=== PATIENT | male | born 1985 | race Caucasian/White ===

== ENCOUNTER 2020-06-06 09:13 | Outpatient (REF) | payer OTHER, SELFPAY ==
--- NOTE | 2020-06-06 09:39 | ECG_ITS ---
Test Reason : UNSPEC CONVULSIONS Blood Pressure : / mmHG Vent. Rate : 113 BPM Atrial Rate : 113 BPM P-R Int : 124 ms QRS Dur : 080 ms QT Int : 314 ms P-R-T Axes : 051 059 061 degrees QTc Int : 430 ms Sinus tachycardia Otherwise normal ECG No previous ECGs available Referred By: Luc Shelby Electronically Signed By:COREY VALDES MD
[2020-06-06 09:50] LABS: MANUAL DIFF FLAG NO
[2020-06-06 09:57] LABS: Basophils Percent Auto 0.7 % (0-2); Eosinophils Percent Auto 0.2 % (0-4); Hematocrit 45.5 % (42-52); Hemoglobin 14.9 g/dl (14.0-18.0); Imm Gran Abs Auto 0.03 X10*3/uL (0.00-0.03); Imm Gran Pct Auto 0.7 % (0.0-0.4); Lymphocytes Absolute Auto 1.7 X10*3/uL (1.2-4.9); Lymphocytes Percent Auto 39.8 % (20-40); Mean Corpuscular HGB Conc 32.7 g/dl (31.0-36.0); Mean Corpuscular Hemoglobin 28.8 pg (27.0-33.0); Mean Platelet Volume 10.5 fL (9.4-12.4); Monocytes Absolute Auto 0.3 X10*3/uL (0.1-1.2); Monocytes Percent Auto 7.3 % (2-11); Neutrophils Absolute Auto 2.2 X10*3/uL (2.0-8.3); Neutrophils Percent Auto 51.3 % (45-73); Platelet Count 191 X10*3/uL (160-400); Red Blood Count 5.17 X10*6/uL (4.60-5.80); Red Cell Distribution Width 11.9 % (11.0-16.0); White Blood Count 4.3 X10*3/uL (4.8-10.8)
[2020-06-06 10:15] LABS: Alanine Aminotransferase 26 U/L (0-40); Albumin Level 4.5 g/dL (3.5-5.0); Alkaline Phosphatase 83 U/L (39-117); Anion Gap 14 (12-20); Aspartate Amino Transferase 17 U/L (5-37); Bilirubin Total 0.3 mg/dL (0.0-1.0); Blood Urea Nitrogen 9 mg/dL (9-16); Calcium 9.8 mg/dL (8.4-10.2); Carbon Dioxide 27 mmol/L (22-29); Chloride 103 mmol/L (96-108); Estimated Glomerular Filt Rate > 60; Glucose Random 109 mg/dL (60-115); Potassium 3.9 mmol/L (3.3-5.1); Sodium 140 mmol/L (135-145); Total Protein 7.2 g/dL (6.5-8.0)
[2020-06-06 10:31] LABS: Valproate 78.1 mcg/mL (50.0-100.0)
[2020-06-06 10:39] LABS: Free T4 (Free Thyroxine) 0.95 ng/dL (0.71-1.85)
[2020-06-06 11:00] LABS: Folate 17.7 ng/mL (> or = 4.0); Vitamin B12 639 pg/mL (200-900)
[2020-06-06 12:28] LABS: Glucose Urine UA NEG (NEG); Leukocyte Esterase Urine NEG (NEG); Nitrite Urine NEG (NEG); Urine Blood NEG (NEG); Urine Ketones NEG (NEG); Urine Protein NEG (NEG-TRACE)
[2020-06-06 12:34] LABS: RBC Urine 0 /HPF (0); Squamous Epithelial Cell Urine TRACE /LPF; WBC Urine 0 /HPF (0-4)
[2020-06-06 13:45] LABS: Appearance Urine CLEAR; Color Urine YELLOW
== END 2020-06-06 09:14 | disposition home or self-care (01) ==
LOC: HO.LAB 09:13
PROVIDERS: Nurse Practitioner Family; PCP Internal Medicine; Visit Provider Internal Medicine
DX: Z00.00 Encounter for general adult medical examination without abnormal findings (principal); R56.9 Unspecified convulsions; R00.0 Tachycardia, unspecified
CPT/HCPCS: 36415; 80053; 80164; 81001; 82607; 82746; 84439; 84443; 85025; 93005

== ENCOUNTER 2020-09-26 17:13 | Outpatient (REF) | payer OTHER, SELFPAY | END 2020-09-26 17:14 | disposition home or self-care (01) | LOC: HO.LNP 17:13 | PROVIDERS: Visit Provider Nurse Practitioner Family | DX: R32 Unspecified urinary incontinence (principal) | CPT/HCPCS: 87086 ==

== ENCOUNTER 2020-12-26 16:55 | Outpatient (REF) | payer OTHER, SELFPAY ==
[2020-12-26 18:16] LABS: Alanine Aminotransferase 25 U/L (0-40); Albumin Level 4.6 g/dL (3.5-5.0); Alkaline Phosphatase 107 U/L (39-117); Aspartate Amino Transferase 19 U/L (5-37); Bilirubin Direct 0.2 mg/dL (0.0-0.5); Bilirubin Total 0.3 mg/dL (0.0-1.0); Total Protein 7.5 g/dL (6.5-8.0)
[2020-12-26 18:21] LABS: Valproate 88.3 mcg/mL (50.0-100.0)
== END 2020-12-26 16:56 | disposition home or self-care (01) ==
LOC: HO.LAB 16:55
PROVIDERS: PCP Internal Medicine; Visit Provider General Practice
DX: F31.9 Bipolar disorder, unspecified (principal); Z79.899 Other long term (current) drug therapy
CPT/HCPCS: 36415; 80076; 80164

== ENCOUNTER 2021-09-22 09:58 | Outpatient (REF) | payer OTHER, SELFPAY ==
--- NOTE | ~2021-09-22 | XR_ITS ---
EXAMINATION: XR FOOT, RIGHT CLINICAL INFORMATION: Pain in right foot COMPARISON: None TECHNIQUE: AP, lateral, and oblique views of the right foot. FINDINGS: The bones and soft tissues are normal. No fracture. Alignment is anatomic. Joint spaces are maintained. There is small retrocalcaneal enthesophyte. XR/XR foot RT 2V IMPRESSION: Small retrocalcaneal enthesophyte. Otherwise unremarkable right foot exam.
[2021-09-22 10:11] LABS: MANUAL DIFF FLAG NO
[2021-09-22 10:38] LABS: Basophils Percent Auto 0.5 % (0-2); Eosinophils Percent Auto 0.3 % (0-4); Hematocrit 45.3 % (42.0-52.0); Hemoglobin 14.9 g/dl (14.0-18.0); Imm Gran Abs Auto 0.02 X10*3/uL (0.00-0.03); Imm Gran Pct Auto 0.5 % (0.0-0.4); Lymphocytes Absolute Auto 1.8 X10*3/uL (1.2-4.9); Lymphocytes Percent Auto 47.6 % (20-40); Mean Corpuscular HGB Conc 32.9 g/dl (31.0-36.0); Mean Corpuscular Hemoglobin 28.9 pg (27.0-33.0); Mean Corpuscular Volume 87.8 fL (80.0-98.0); Mean Platelet Volume 10.6 fL (9.4-12.4); Monocytes Absolute Auto 0.3 X10*3/uL (0.1-1.2); Monocytes Percent Auto 7.4 % (2-11); Neutrophils Absolute Auto 1.7 x10*3/uL (2.0-8.3); Neutrophils Percent Auto 43.7 % (45-73); Platelet Count 189 X10*3/uL (160-400); Red Blood Count 5.16 X10*6/uL (4.60-5.80); Red Cell Distribution Width 11.6 % (11.0-16.0); White Blood Count 3.8 X10*3/uL (4.8-10.8)
[2021-09-22 11:10] LABS: Alanine Aminotransferase 32 U/L (0-40); Albumin Level 4.6 g/dL (3.5-5.0); Alkaline Phosphatase 101 U/L (39-117); Anion Gap 14 (12-20); Aspartate Amino Transferase 19 U/L (5-37); Bilirubin Total 0.2 mg/dL (0.0-1.0); Blood Urea Nitrogen 12 mg/dL (9-16); Calcium 9.8 mg/dL (8.4-10.2); Carbon Dioxide 31 mmol/L (22-29); Chloride 100 mmol/L (96-108); Cholesterol 156 mg/dL; Estimated Glomerular Filt Rate > 60; Glucose Random 88 mg/dL (60-115); HDL Cholesterol 53 mg/dL; LDL Cholesterol Calculated 83 mg/dl; Potassium 4.3 mmol/L (3.3-5.1); Sodium 141 mmol/L (135-145); Total Protein 7.5 g/dL (6.5-8.0); Triglycerides 102 mg/dL; Valproate 77.6 mcg/mL (50.0-100.0)
[2021-09-22 11:21] LABS: Free T4 (Free Thyroxine) 0.94 ng/dL (0.71-1.85); Thyroid Stimulating Hormone 1.79 uIU/mL (0.32-4.0)
[2021-09-22 11:58] LABS: Folate 14.6 ng/mL (> or = 4.0); Vitamin B12 593 pg/mL (200-900)
== END 2021-09-22 09:59 | disposition home or self-care (01) ==
LOC: HO.LAB 09:58
PROVIDERS: PCP Internal Medicine; Visit Provider Internal Medicine
DX: M79.671 Pain in right foot (principal); E78.00 Pure hypercholesterolemia, unspecified; R56.9 Unspecified convulsions
CPT/HCPCS: 36415; 73620; 80053; 80061; 80164; 82607; 82746; 84439; 84443; 85025

== ENCOUNTER → 2021-12-15 09:35 | Outpatient (REF) | payer OTHER, SELFPAY ==
--- NOTE | 2021-12-15 09:38 | CA_ITS ---
Transthoracic Echocardiogram Patient (Last, First, Middle): Bro Peters, Gender: Male Date of : 1985 Age: 36 Procedure Date: 12/15/2021 Procedure Type: Transthoracic Echocardiogram Location: OP Height: 167.64 cm Weight: 84.37 kg BSA: 1.94 m2 Heart Rate: 103 bpm BP: 130 / 66 mmHg Fuel Technician: SHRUTHI Referring MD: Luc Shelby MD Fly Rail Operator: Noah Martinez MD Symptoms: R00.0 - Tachycardia, unspecified Study Quality: Fair/Technically difficult ECG Rhythm: Sinus tachycardia Conclusions: - 1. Normal LV systolic function 2. Normal cardiac valvular Doppler 3. No gross pericardial effusion Findings Left Ventricle Normal left ventricular size, thickness, and systolic function. The visually estimated ejection fraction is between 60-65%. Diastolic function is indeterminate on the basis of available data. Right Ventricle Normal right ventricular cavity size and systolic function. Atria The left atrium is normal in size. Interatrial shunt cannot be excluded. The right atrium was not well visualized. Aortic Valve Normal aortic valve structure and function. Mitral Valve Likely normal mitral valve structure and function. There is trace mitral valve regurgitation. There is no mitral valve stenosis. Pulmonic Valve The pulmonic valve was not well visualized. Tricuspid Valve Normal tricuspid valve structure. Tricuspid regurgitation envelope is inadequate for calculation of right ventricular systolic pressure. Normal right atrial pressure. Great Vessels All visible segments of the aorta are normal in size. The pulmonary artery was not well visualized. Venous The inferior vena cava is normal in size and collapses greater than 50% with inspiration. Pericardium/Pleural There is no evidence of pericardial effusion. Prior Study Comparison No prior study available for comparison. Measurements 2D Linear Measurements IVSd: 1.09 0.6-0.9/0.6-1.0 cm LVIDd: 5.02 3.9-5.3/4.2-5.9 cm LVIDd Index: 2.59 2.4-3.2/2.2-3.1 cm/m2 LVIDs: 3.45 2.0-3.6 cm LVPWd: 0.90 0.7-1.1 cm LA Diam: 3.40 2.7-3.8/3.0-4.0 cm LAIDs Index: 1.75 1.5-2.3 cm/m2 LV Mass: 227.30 67-162/88-224 g LV Mass Index: 117.16 43-95/49-115 g/m2 LVOT Diam: 2.80 3.0+(-)1.3 cm 2D Systolic Function EF Teich: 58.70 >55% Mitral Valve MV Pk E: 0.59 MV Decel Time: 120.00 E'Medial: 7.29 E/E' Med: 8.10 PHT: 35.00 MVA PHT: 6.29 Decel [place]: 4.95 Aortic Valve AoV Pk Emmanuel: 0.86 AoV Pk Grad: 3.00 FREDRICK: 5.60 LVOT LVOT Pk Emmanuel: 0.79 LVOT Mn Emmanuel: 0.58 LVOT VTI: 0.14 LVOT Pk Grad: 2.00 LVOT Mn Grad: 1.00 LVOT Diam: 2.80 LVOT Area: 6.16 Diastolic Function MV Pk E: 0.59 E'Medial: 7.29 E/E' Med: 8.10 Tricuspid Valve RA Press: 3.00 Great Vessels Aorta Sinus of Valsalva: 3.60 2.0-3.5 cm Ao Asc: 3.20 2.1-3.4 cm Pulmonary Valve PV Pk Emmanuel: 0.80 Peak PV Grad: 3.00 Updated in Other Vendor System with Status of Final Noah Martinez MD electronically signed on 12/16/2021 2:18:17 PM with status of Final
== END ==
LOC: HO.CARD 09:35
PROVIDERS: Visit Provider Internal Medicine
DX: R00.0 Tachycardia, unspecified (principal); R03.0 Elevated blood-pressure reading, without diagnosis of hypertension
CPT/HCPCS: 93306

== ENCOUNTER 2022-02-11 09:06 | Outpatient (REF) | payer OTHER, SELFPAY ==
[2022-02-16 11:09] LABS: Metanephrine, Free 71 pg/mL (<=57); Normetanephrines, Free 135 pg/mL (<=148); Total Metanephrine, Free 206 pg/mL (<=205)
== END 2022-02-11 09:07 | disposition home or self-care (01) ==
LOC: HO.LAB 09:06
PROVIDERS: PCP Internal Medicine; Referring Provider Internal Medicine; Visit Provider Internal Medicine Cardiovascular Disease
DX: R00.0 Tachycardia, unspecified (principal); R03.0 Elevated blood-pressure reading, without diagnosis of hypertension; I10 Essential (primary) hypertension; Z79.899 Other long term (current) drug therapy
CPT/HCPCS: 36415; 83835; 93005; 99202

== ENCOUNTER 2022-09-14 11:58 | Outpatient (AMB) | payer OTHER, SELFPAY ==
[2022-09-14 12:00] VITALS: BP 130/80; PULSE 104; O2SAT 97; BMI 28.9
--- NOTE | 2022-09-14 12:00 | MHC.PC.OV ---
Vital Signs 09/14/22 12:00 Height 5 ft 8 in Weight 190 lb BMI 28.9 BP 130/80 Blood Pressure Location Rt brachial Position Sitting Pulse 104 H Pulse Source Pulse Oximeter Pulse Oximetry (%) 97 Oxygen Delivery Method Room Air Intake Visit Reasons: swollen left knee Intake Note: pt is here for left knee swelling since last week Lpn Per Diem Required: No Accompanied by: Self / Same As Patient Allergies Naldecon Senior EX Allergy (Unknown, Verified 09/14/22 12:00) Unknown pineapple Allergy (Unknown, Verified 09/14/22 12:00) unknown pseudoephedrine [Sudafed] Allergy (Unknown, Verified 09/14/22 12:00) Unknown triprolidine [From Actifed] Allergy (Unknown, Verified 09/14/22 12:00) Unknown Tobacco use date assessed: 08/02/22 Dental Screening Dental Screen Date: 09/14/22 Did you have a dental visit in the last 12 months?: Yes Did you have a dental problem in the last 6 months where you did not have access to dental care?: No Was dental information given to patient?: Patient has dentist HPI HPI Comments History of Present Illness Details 37-year-old male past medical history significant for OCD, mental behavioral problem, paitient nonverbal and seizure disorder. Patient of last seen in July. 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 states Patient having pain in left knee. ? swollen. Left knee slightly swollen on examination. Patient has taken Tylenol as needed for pain with some relief. Denies any acute injury or recent fall. Patient fci working states patient has no issues standing up from chairs or running but at times will move a certiant way and his gait will be unsteady to knee pain. [facility] Medical History Mental and behavioral problem Obsessive compulsive disorder (or obsessive compulsive neurosis) Overweight (BMI 25.0-29.9) Seizure Urine incontinence Vitamin D deficiency Surgical History No pertinent past surgical history Social History Housing: Other (half-way) Alcohol intake: never Patient Tobacco Use Status: Never used Tobacco e-Cigarette/Vaping Use: Never Used Second Hand Smoke Exposure: No service: No Current occupational status: disabled Cognitive needs: Yes (mental and behavioral problem) Hearing needs: No Vision needs: No Questionnaire Thrive Questionnaire Date Thrive assessed: 08/02/22 DAYANARA-7 AMB Questionnaire DAYANARA-7 Date DAYANARA - 7 assessed: 08/02/22 Source: Developed by Drs. Brijesh Reyes, Ml Woodruff, Sampson Segal and colleagues, with an educational meri from [employer]. Review of Systems Const Denies chills, Denies fatigue, Denies fever(s) and Denies poor appetite Eyes Denies no additional complaints ENT Reports Normal hearing present Card Denies chest pain, Denies syncope, Denies rapid heart rate and Denies dyspnea Resp Denies cough and Denies dyspnea GI Denies change in stool character, Denies constipation, Denies diarrhea, Denies nausea and Denies vomiting Denies dysuria, Denies urinary frequency and Denies urinary urgency Neuro Reports Normal hearing present, Denies confusion and Denies syncope Psych Denies confusion Endo Denies fatigue Physical exam (Primary Care) Vital Signs: Last Vital Signs Pulse 104 H 09/14/22 12:00 BP 130/80 09/14/22 12:00 Pulse Ox 97 09/14/22 12:00 Oxygen Delivery Method Room Air 09/14/22 12:00 BMI result Body Mass Index 28.9 Tobacco/Smoking Status: Tobacco use Status Tobacco use date assessed 08/02/22 09/14/22 12:01 Patient Tobacco Use Status Never used Tobacco 09/14/22 12:01 e-Cigarette/Vaping Use Never Used 09/14/22 12:01 Thrive Assessment: Date of Thrive Assessment Date Thrive assessed 08/02/22 09/14/22 12:01 Const General: No confusion Orientation/consciousness: No confusion HENMT Head: Yes normocephalic and Yes atraumatic Eyes Conjunctivae: conjunctivae normal Chest Chest palpation & inspection: normal inspection of the chest Resp Effort & Inspection: normal respiratory effort Auscultation: clear to auscultation bilaterally, no crackles, no rhonchi and no wheezes Cardio Rate: regular rate Rhythm: regular rhythm Heart sounds: S1 normal heart sound present and S2 normal heart sound present GI Inspection: Yes normal to inspection Neuro General: No confusion Cranial nerves: Yes Normal hearing present Extrem General: No edema Right lower extremity: normal to inspection and full ROM Left lower extremity: knee Details: swelling (mild patella swelling ) and normal ROM; no tenderness, no ecchymosis, no crepitus and no unusual warmth Assessment and Plan Assessment & Plan (1) Left knee pain: Code(s): M25.562 - Pain in left knee Plan: Left knee xray ordered to rule out acute injury. Diclofenac cream prescribed prn left knee pain. Can continue to take tyleonol as need for pain and liquor department manager educated on RICE therapy. (2) Mental and behavioral problem: Code(s): F48.9 - Nonpsychotic mental disorder, unspecified; F69 - Unspecified disorder of adult personality and behavior (3) Obsessive compulsive disorder (or obsessive compulsive neurosis): Code(s): F42.9 - Obsessive-compulsive disorder, unspecified Qualifiers: Obsessive-compulsive disorder type: mixed obsessional thoughts and acts Qualified Code(s): F42.2 - Mixed obsessional thoughts and acts (4) Seizure: Code(s): R56.9 - Unspecified convulsions Plan: Continue on current medications. Plan Keep scheduled follow up with pcp or follow up sooner if needed. Orders: Orders XR knee LT 2V Today M25.562 - Pain in left knee Medications: New diclofenac sodium 1% (Arthritis Pain (diclofenac)) apply to single elbow, wrist or hand;knee for hand includes palm/fingers/back of hand 2 grams topical QID PRN 100 grams 0RF pain M25.562 - Pain in left knee Coding Level of Care Code Est Pt Level 4 (47780) Diagnoses Left knee pain M25.562 Mental and behavioral problem F48.9; F69 Obsessive compulsive disorder (or obsessive compulsive neurosis) F42.2 Obsessive-compulsive disorder type: mixed obsessional thoughts and acts Seizure R56.9
== END 2022-09-14 13:17 | disposition home or self-care (01) ==
PROVIDERS: PCP Internal Medicine; Visit Provider Nurse Practitioner Family
DX: R56.9 Unspecified convulsions (principal); M25.562 Pain in left knee; F48.9 Nonpsychotic mental disorder, unspecified; F69 Unspecified disorder of adult personality and behavior; F42.2 Mixed obsessional thoughts and acts
CPT/HCPCS: 99214

== ENCOUNTER 2022-09-14 12:22 | Outpatient (REF) | payer OTHER, SELFPAY ==
--- NOTE | ~2022-09-14 | XR_ITS ---
EXAMINATION: XR KNEE, LEFT CLINICAL INFORMATION: Reason for Exam M25.562 - Pain in left knee COMPARISON: None TECHNIQUE: 2 views of the knee FINDINGS: No acute fracture or dislocation. Joint spaces are maintained. No joint effusion. Soft tissues are unremarkable. XR/XR knee LT 2V IMPRESSION: * No acute osseous abnormality. * Joint spaces are maintained without significant degenerative change.
== END 2022-09-14 12:23 | disposition home or self-care (01) ==
LOC: HO.XRAY 12:22
PROVIDERS: PCP Internal Medicine; Visit Provider Nurse Practitioner Family
DX: M25.562 Pain in left knee (principal)
CPT/HCPCS: 73560

== ENCOUNTER 2022-12-20 12:37 | Outpatient (AMB) | payer OTHER, SELFPAY ==
[2022-12-20 12:40] VITALS: BP 132/78; PULSE 100; O2SAT 97; BMI 27.5
--- NOTE | 2022-12-20 12:40 | A.OFFPC_ITS ---
Vital Signs 12/20/22 12:40 Height 5 ft 8 in Weight 181 lb BMI 27.5 BP 132/78 Blood Pressure Location Lt brachial Position Sitting Pulse 100 Pulse Source Pulse Oximeter Pulse Oximetry (%) 97 Oxygen Delivery Method Room Air Intake Visit Reasons: Annual Exam Day Care Teacher Required: No Accompanied by: Self / Same As Patient Allergies Naldecon Senior EX Allergy (Unknown, Verified 12/20/22 12:44) Unknown pineapple Allergy (Unknown, Verified 12/20/22 12:44) unknown pseudoephedrine [Sudafed] Allergy (Unknown, Verified 12/20/22 12:44) Unknown triprolidine [From Actifed] Allergy (Unknown, Verified 12/20/22 12:44) Unknown Medication List - Last Reconciled 12/20/22 by Luc Shelby MD acetaminophen 650 mg (2 x 325 mg) PO Q4H PRN cholecalciferol (vitamin D3) 25 mcg PO DAILY clonazepam 0.5 mg PO DAILY PRN clotrimazole 1% appl topical dextromethorphan-guaifenesin 5-100 mg/5 mL (Child Robitussin Cough-Chest DM) 10 mL PO Q4-8H PRN divalproex 500 mg PO BID divalproex mg PO BEDTIME docusate sodium 100 mg PO DAILY fluvoxamine 100 mg PO BID fluvoxamine 50 mg PO QAM haloperidol 0.5 mg PO DAILY quetiapine mg PO TID Tobacco use date assessed: 08/02/22 [facility] Annual Exam HPI Details 37-year-old overweight male with mental behavior a problem having obsessive-compulsive disorder seizure disorder coming in for physical exam. Last seen in September 2022. PAteint has been falling a lot has spoke to psychiatry and has been decreasing haldol but due to behavioural will need this- concern on falling alot- no syncope. Patient has not had any seizures. Otherwise no nausea no vomiting no chest pains [facility] Medical History (Updated 12/20/22 @ 13:16 by Luc Shelby MD) Annual physical exam Urine incontinence Vitamin D deficiency Overweight (BMI 25.0-29.9) Seizure Obsessive compulsive disorder (or obsessive compulsive neurosis) Mental and behavioral problem Surgical History No pertinent past surgical history Social History Housing: Other (care home) Alcohol intake: never Patient Tobacco Use Status: Never used Tobacco e-Cigarette/Vaping Use: Never Used Second Hand Smoke Exposure: No service: No Current occupational status: disabled Cognitive needs: Yes (mental and behavioral problem) Hearing needs: No Vision needs: No Questionnaire Thrive Questionnaire Date Thrive assessed: 08/02/22 DAYANARA-7 AMB Questionnaire DAYANARA-7 Date DAYANARA - 7 assessed: 08/02/22 Source: Developed by Drs. Brijesh Reyes, Ml Woodruff, Sampson Segal and colleagues, with an educational meri from [employer]. Review of Systems Const Denies poor appetite and Denies weakness Eyes Denies no additional complaints ENT Reports Normal hearing present, Denies dizziness, Denies nasal congestion, Denies tinnitus and Denies sore throat Card Denies chest pain, Denies syncope, Denies rapid heart rate and Denies dyspnea Resp Denies cough and Denies dyspnea GI Denies change in stool character, Reports constipation, Denies diarrhea, Denies nausea and Denies vomiting Denies dysuria and Denies urinary frequency Neuro Reports Normal hearing present, Denies confusion, Denies dizziness, Denies syncope and Denies weakness Psych Denies confusion Physical exam (Primary Care) Vital Signs: Last Vital Signs Pulse 100 12/20/22 12:40 BP 132/78 12/20/22 12:40 Pulse Ox 97 12/20/22 12:40 Oxygen Delivery Method Room Air 12/20/22 12:40 BMI result Body Mass Index 27.5 Tobacco/Smoking Status: Tobacco use Status Tobacco use date assessed 08/02/22 12/20/22 12:40 Patient Tobacco Use Status Never used Tobacco 12/20/22 12:40 e-Cigarette/Vaping Use Never Used 12/20/22 12:40 Thrive Assessment: Date of Thrive Assessment Date Thrive assessed 08/02/22 12/20/22 12:40 Const General: No confusion Orientation/consciousness: No confusion HENMT Head: Yes normocephalic Ears: external ears normal and TM's normal bilaterally Face and sinus: Yes normal facial exam Mouth: moist mucous membranes Throat: Yes tonsils normal Eyes Conjunctivae: conjunctivae normal Pupils: Equal, round and reactive pupils present and Pupil accommodation reflex normal Direct Ophthalmoscopy: normal light reflex Neck Neck: No lymphadenopathy Thyroid: Thyroid normal Chest Chest palpation & inspection: normal inspection of the chest Resp Effort & Inspection: normal respiratory effort and no audible wheezes Auscultation: clear to auscultation bilaterally, no crackles, no wheezes and lung sounds not diminished Cardio Rate: regular rate Rhythm: regular rhythm Peripheral pulses: radial pulses present and dorsalis pedis present GI Other: Visual normal exam Palpation (GI): no masses Auscultation: normal bowel sounds and normoactive bowel sounds Rectal Exam - Male: Yes deferred Male General Exam: Yes normal external exam Skin General skin exam: no rashes or lesions noted Rashes: no rashes Neuro General: No confusion Cranial nerves: Yes Equal, round and reactive pupils present and Yes Normal hearing present Cognition (Neuro): normal cognition Gait exam (Neuro): Normal gait present Motor exam (neuro): 5/5 motor strength present throughout Deep tendon reflexes (DTR's): Right brachioradialis reflex intensity grade: 2+, Left brachioradialis reflex intensity grade: 2+, Right patellar reflex intensity grade: 2+ and Left patellar reflex intensity grade: 2+ Extrem General: No edema Office Procedures Flu Questionnaire Does the patient have a severe egg allergy?: No Does the patient have severe life threatening allergies?: No Does the patient have a fever or illness today?: No Has the patient ever had Guillain-[place] Syndrome?: No Has the patient ever had any past reaction to a flu shot?: No Immunizations flu vacc [id number] 6mos up(PF) 60 mcg(15 mcgx4)/0.5 mL IM syringe Performing Provider: Luc Shelby MD [facility] Administered by: KRISTEL Gaston on 12/20/22 12:58 Dose Route Admin Location Dispensed Lot Number Expiration Date 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 0.5 mL IM Right Deltoid 0.5 mL [id number] 08/07/23 12060-560-19 [employer] VIS Given Date VIS Provided VIS Publication Date 12/20/22 Single Vaccine 20 Eligibility Eligibility Date Funding Source Not [facility] Eligible 12/20/22 Private Assessment and Plan Assessment & Plan (1) Annual physical exam: Code(s): Z00.00 - Encounter for general adult medical examination without abnormal findings (2) Overweight (BMI 25.0-29.9): Code(s): E66.3 - Overweight Plan: Continue with diet and exercise (3) Obsessive compulsive disorder (or obsessive compulsive neurosis): Code(s): F42.9 - Obsessive-compulsive disorder, unspecified Qualifiers: Obsessive-compulsive disorder type: mixed obsessional thoughts and acts Qualified Code(s): F42.2 - Mixed obsessional thoughts and acts Plan: Continue to follow-up with counseling and therapy (4) Seizure: Code(s): R56.9 - Unspecified convulsions Plan: Continue with present medication. (5) Recurrent falls: Code(s): R29.6 - Repeated falls Plan: Will sent for neurology referral, physical therapy and blood workup 1st Orders: Orders Complete Blood Count Auto Diff Today R29.6 - Repeated falls Vitamin B12 and Folate Today R29.6 - Repeated falls Magnesium Today R29.6 - Repeated falls Erythrocyte Sedimentation Rate Today R29.6 - Repeated falls Influenza [id number] Immunization Today Z23 - Encounter for immunization Thyroid Stimulating Hormone Today R29.6 - Repeated falls Free T4 (Free Thyroxine) Today R29.6 - Repeated falls Lipid Panel Today E78.00 - Pure hypercholesterolemia, unspecified, R29.6 - Repeated falls Comprehensive Met. Panel Today R29.6 - Repeated falls B Cell IGH Gene Rearrangement Today R29.6 - Repeated falls PT Evaluation and Treatment Today R29.6 - Repeated falls Referrals Neurology Referral R29.6 - Repeated falls Coding Level of Care Code Est Pt Prev Care [id number]([id number]) Diagnoses Annual physical exam Z00.00 Overweight (BMI 25.0-29.9) E66.3 Mixed obsessional thoughts and acts F42.2 Obsessive-compulsive disorder type: mixed obsessional thoughts and acts Seizure R56.9 Recurrent falls R29.6
== END 2022-12-20 13:24 | disposition home or self-care (01) ==
PROVIDERS: Visit Provider Internal Medicine
DX: Z00.00 Encounter for general adult medical examination without abnormal findings (principal); R56.9 Unspecified convulsions; E66.3 Overweight; F42.2 Mixed obsessional thoughts and acts; R29.6 Repeated falls; Z23 Encounter for immunization
CPT/HCPCS: 90471; 90686; 99395

== ENCOUNTER 2022-12-20 13:31 | Outpatient (REF) | payer OTHER, SELFPAY ==
[2022-12-20 13:45] LABS: MANUAL DIFF FLAG NO
[2022-12-20 14:44] LABS: Basophils Percent Auto 0.3 % (0-2); Eosinophils Percent Auto 0.1 % (0-4); Hematocrit 44.6 % (42.0-52.0); Hemoglobin 14.7 g/dl (14.0-18.0); Imm Gran Abs Auto 0.03 X10*3/uL (0.00-0.03); Imm Gran Pct Auto 0.3 % (0.0-0.4); Lymphocytes Percent Auto 21.7 % (20-40); Mean Corpuscular Hemoglobin 29.3 pg (27.0-33.0); Mean Platelet Volume 11.7 fL (9.4-12.4); Monocytes Absolute Auto 0.7 X10*3/uL (0.1-1.2); Monocytes Percent Auto 7.4 % (2-11); Neutrophils Absolute Auto 6.4 x10*3/uL (2.0-8.3); Neutrophils Percent Auto 70.2 % (45-73); Platelet Count 178 X10*3/uL (160-400); Red Blood Count 5.01 X10*6/uL (4.60-5.80); White Blood Count 9.1 X10*3/uL (4.8-10.8)
[2022-12-20 15:23] LABS: Alanine Aminotransferase 29 U/L (0-40); Albumin Level 4.2 g/dL (3.5-5.0); Alkaline Phosphatase 85 U/L (39-117); Anion Gap 12 (12-20); Aspartate Amino Transferase 21 U/L (5-37); Bilirubin Total 0.3 mg/dL (0.0-1.0); Blood Urea Nitrogen 10 mg/dL (9-16); Calcium 9.9 mg/dL (8.4-10.2); Carbon Dioxide 29 mmol/L (22-29); Chloride 106 mmol/L (96-108); Cholesterol 146 mg/dL (<200); Estimated Glomerular Filt Rate > 60; Glucose Random 97 mg/dL (60-115); HDL Cholesterol 54 mg/dL (>40); LDL Cholesterol Calculated 68 mg/dL (<100); Potassium 4.1 mmol/L (3.3-5.1); Sodium 143 mmol/L (135-145); Total Protein 6.7 g/dL (6.5-8.0); Triglycerides 124 mg/dL (<150)
[2022-12-20 15:42] LABS: Free T4 (Free Thyroxine) 0.84 ng/dL (0.71-1.85); Thyroid Stimulating Hormone 1.09 uIU/mL (0.32-4.0)
[2022-12-20 15:48] LABS: Folate 10.3 ng/mL (> or = 4.0); Vitamin B12 579 pg/mL (200-900)
[2022-12-20 16:05] LABS: Erythrocyte Sedimentation Rate 2 MM/HR (0-15)
== END 2022-12-20 13:32 | disposition home or self-care (01) ==
LOC: HO.LAB 13:31
PROVIDERS: PCP Internal Medicine; Visit Provider Internal Medicine
DX: R29.6 Repeated falls (principal); E78.00 Pure hypercholesterolemia, unspecified
CPT/HCPCS: 36415; 80053; 80061; 82607; 82746; 83735; 84439; 84443; 85025; 85652

== ENCOUNTER 2023-01-02 15:49 | Emergency (ER) | payer OTHER, SELFPAY ==
--- NOTE | ~2023-01-02 | CT_ITS ---
EXAMINATION: CT HEAD WITHOUT CONTRAST CLINICAL INFORMATION: Head strike. COMPARISON: CT scan orbits 02/05/2013 (report). CT head 12/16/2009. TECHNIQUE: Contiguous axial imaging was performed from the skull base to vertex without intravenous administration of contrast. This CT examination was performed using dose optimization techniques as appropriate, variously including the following: *Automated exposure control *Adjustment of mA and/or kV according to patient size (this includes techniques or standardized protocols for targeted exams where dose is matched to indication/reason for exam; i.e. extremities or head) *Use of iterative reconstruction technique DLP: 767 mGy-cm FINDINGS: Images are suboptimal secondary to motion artifact. No intrarenal hemorrhage, tumors or acute infarcts noted. Mild diffuse commensurate prominence of ventricles and sulci is noted. No focal parenchymal lesions of the brain identified. The orbits and globes are normal in appearance. No significant opacification of the visualized paranasal sinuses, mastoid air cells and middle ear cavities. CT/CT head/brain wo IV con IMPRESSION: No acute intracranial abnormalities.
[2023-01-02 16:43] VITALS: BP 147/103; PULSE 113; RESP 18; TEMP 36.6; O2SAT 98; BMI 26.3
--- NOTE | 2023-01-02 16:43 | ED_ITS ---
HPI - Head Injury General Chief complaint: Fall Stated complaint: fell x2 hit his head Time Seen by Provider: 01/02/23 19:22 Source: patient and other (caregiver from [facility]) Mode of arrival: ambulatory Limitations: other (pt is nonverbal with cognitive limitations) History of Present Illness HPI Narrative: Pt is a 37yo male w/ a pmhx of cognitive disabilities who presents to the ED with his caregiver due to concern of frequent falls. Caregiver states that the pt has been slowly falling to the ground particularly when he stands up for the past 6 weeks. Today the pt fell twice and hit his head both times on a chair. The falls were witnessed and there was no LOC. Caregiver reports no changes from pts baseline neurological status just two bruises from the falls. The caregiver also states that since coming to the ED the pt has fallen 4 more times without headstrike, stating that the pt just stands back up. He notes that the pt has a hx of OCD and has seen neurology in the past. Related Data Home Medications Medication Instructions Recorded Confirmed clonazepam 0.5 mg tablet 0.5 mg PO DAILY PRN 12/10/19 12/20/22 clotrimazole 1 % topical cream applic topical 12/10/19 12/20/22 divalproex 500 mg tablet,delayed 500 mg PO BID 12/10/19 12/20/22 release fluvoxamine 100 mg tablet 100 mg PO BID 12/10/19 12/20/22 divalproex 250 mg tablet,delayed mg PO BEDTIME 06/06/20 12/20/22 release quetiapine 200 mg tablet mg PO TID 12/10/20 12/20/22 fluvoxamine 50 mg tablet 50 mg PO QAM 12/11/21 12/20/22 haloperidol 0.5 mg tablet 0.5 mg PO DAILY 12/20/22 12/20/22 Previous Rx's Medication Instructions Recorded acetaminophen 325 mg tablet 650 mg (2 x 325 mg) PO Q4H PRN for 04/20/22 headache #60 tabs dextromethorphan-guaifenesin 5 10 ml PO Q4-8H PRN cough #118 mL 06/24/22 mg-100 mg/5 mL oral liquid (Child Robitussin Cough-Chest DM) cholecalciferol (vitamin D3) 25 25 mcg PO DAILY #90 tabs 09/26/22 mcg (1,000 unit) tablet docusate sodium 100 mg capsule 100 mg PO DAILY #90 caps 11/08/22 Allergies Allergy/AdvReac Type Severity Reaction Status Date / Time Naldecon Senior EX Allergy Unknown Unknown Verified 01/02/23 16:47 pineapple Allergy Unknown unknown Verified 01/02/23 16:47 pseudoephedrine [Sudafed] Allergy Unknown Unknown Verified 01/02/23 16:47 triprolidine [From Actifed] Allergy Unknown Unknown Verified 01/02/23 16:47 Review of Systems 2 Review of Systems: Yes Unobtainable due to mental status (obtained ROS from caregiver) Constitutional: Constitutional: Reports frequent falls and Denies poor appetite Musculoskeletal: Musculoskeletal: Reports abnormal gait (chronic wide based gait primarily walking on his tip toes,) Neurologic: Reports abnormal gait (chronic wide based gait primarily walking on his tip toes,), Reports frequent falls and Denies seizure-like activity PMFSH Past Medical History Medical History (Updated 01/02/23 @ 20:04 by Shay Parsons) Annual physical exam Urine incontinence Vitamin D deficiency Overweight (BMI 25.0-29.9) Seizure Obsessive compulsive disorder (or obsessive compulsive neurosis) Mental and behavioral problem Surgical History No pertinent past surgical history Social History Housing: Other (assisted) Alcohol intake: never Patient Tobacco Use Status: Never used Tobacco e-Cigarette/Vaping Use: Never Used Second Hand Smoke Exposure: No service: No Current occupational status: disabled Cognitive needs: Yes (mental and behavioral problem) Hearing needs: No Vision needs: No Physical Exam 2 Vital Signs: Vital Signs: Last Vital Signs Temp 98 F 01/02/23 16:43 Pulse 113 H 01/02/23 16:43 Resp 18 01/02/23 16:43 BP 147/103 H 01/02/23 16:43 Pulse Ox 98 01/02/23 16:43 O2 Del Method Room Air 01/02/23 16:43 BMI result Body Mass Index 26.3 Const: General: no acute distress, alert, awake and Physically active L imitations: behavioral limitations and other limitations (non-verbal and cognitive limitations) HEENT: Head: Yes No palpable skull fracture present and Yes normocephalic Head images: 1. 3cm bruise Ears: hearing grossly normal bilaterally General nose exam: Normal external nose present Eyes: General: appearance normal, both eyes and all related structures E yelids: Yes eyelids normal Conjunctivae: conjunctivae normal Sclerae: s clerae normal Pupils: Equal, round and reactive pupils present EOM: N ystagmus present (Bilaterally) Direct Ophthalmoscopy: normal light reflex Neck: Neck: Yes normal visual inspection Resp: Effort & Inspection: normal respiratory effort GI: Palpation (GI): nontender Neuro: General: moves all extremities Cranial nerves: Yes Equal, round and reactive pupils present, Yes Ability to bilaterally elevate shoulders present and Yes Nystagmus present (Bilaterally) Gait exam (Neuro): Wide-based gait present Motor exam (neuro): 5/5 motor strength present throughout Course Course Course Narrative: RME: 37yo M w/PMHx HTN, seiuresz, OCD, mental & behavior disorder, nonverbal at baseline, from [facility] ([facility] staff providing hx) c/o recurrent falls over the past 6 weeks, with 2 falls today w/+head strike w/o LOC. denies behavior changes, fever, chills, vomiting. denies taking AC +erythema to head EKG, Labs, UA, Head CT ordered Full HPI, ROS and PE to be performed by primary ED provider. Reevaluation(s) Reevaluation #1: Patient was slightly orthostatic. I discussed with the caregiver, they have been restricting his fluids as ?he drinks out of control until he wets himself. ? I asked them to let him increase his fluid intake for the next 2-3 days to see if this improves his symptoms. The patient is unwilling to stay for IV hydration. And given that at baseline he tried to drink lots of fluids I feel it is appropriate to hydrate orally. There has been no vomiting or diarrhea Time: 20:03 Medical Decision Making Medical Decision Making MDM Narrative: 37-year-old male with history of severe cognitive delay presents for evaluation frequent falls. He occasionally follows commands on exam. He is able to move all extremities with 5/5 strength. He is able to stand but tends to walk in his tiptoes. This may be the reason for his fall. His workup is largely unremarkable. This includes the patient's labs, head CT. There is mild diffuse commensurate prominence of ventricles and sulci is noted, this is possibly related to mild hydrocephalus.. The patient is able to ambulate. It is possible is behavior related. However he has follow-up with Neurology on outpatient basis. Discussed with the caregiver the patient follow-up with neurology Differential Diagnosis Differential Diagnoses: The differential diagnosis associated with the presentation includes (contusion of right rastafarian, concussion, behavioral falls, lower extremity weakness, peripheral neuropathy) Lab Data MDM Lab Attestation statement: I reviewed the patient's lab results. No leukocytosis. The patient has a very mild anemia with a hemoglobin of 13.5 hematocrit 41.2. No obvious source of bleeding at this time. Chemistry without any significant abnormality 01/02/23 17:10 01/02/23 17:10 Labs: Lab Results 01/02/23 01/02/23 Range/Units 17:10 18:13 WBC 7.6 (4.8-10.8) X10*3/uL RBC 4.62 (4.60-5.80) X10*6/uL Hgb 13.5 L (14.0-18.0) g/dl Hct 41.2 L (42.0-52.0) % MCV 89.2 (80.0-98.0) fL MCH 29.2 (27.0-33.0) pg MCHC 32.8 (31.0-36.0) g/dl RDW 11.9 (11.0-16.0) % Plt Count 173 (160-400) X10*3/uL MPV 10.8 (9.4-12.4) fL Immature Gran % (Auto) 1.2 H (0.0-0.4) % Neut % (Auto) 53.1 (45-73) % Lymph % (Auto) 35.9 (20-40) % [place] % (Auto) 8.8 (2-11) % Eos % (Auto) 0.3 (0-4) % Baso % (Auto) 0.7 (0-2) % Lymph # (Auto) 2.7 (1.2-4.9) X10*3/uL [place] # (Auto) 0.7 (0.1-1.2) X10*3/uL Eos # (Auto) 0.0 (0.0-0.4) X10*3/uL Baso # (Auto) 0.1 (0.0-0.2) X10*3/uL Abs Immat Gran (auto) 0.09 H (0.00-0.03) X10*3/uL Absolute Neuts (auto) 4.1 (2.0-8.3) x10*3/uL Absolute Nucleated RBC 0.000 (0.0-0.012) X10*3/uL Nucleated RBC % (auto) 0.0 (0.0-0.2) /100WBC PT 11.0 L (11.1-13.3) SEC INR 0.9 (0.9-1.1) Sodium 141 (135-145) mmol/L Potassium 4.0 (3.3-5.1) mmol/L Chloride 105 (96-108) mmol/L Carbon Dioxide 29 (22-29) mmol/L Anion Gap 11 L (12-20) BUN 12 (9-16) mg/dL Creatinine 0.78 (0.5-1.4) mg/dL Estim Creat Clear Calc 133.8 Estimated GFR > 60 Random Glucose 108 (60-115) mg/dL Calcium 9.2 D (8.4-10.2) mg/dL Magnesium 2.0 (1.6-2.6) mg/dL Total Bilirubin 0.2 (0.0-1.0) mg/dL Direct Bilirubin 0.2 (0.0-0.5) mg/dL AST 33 (5-37) U/L ALT 51 H (0-40) U/L Alkaline Phosphatase 108 (39-117) U/L Total Protein 6.7 (6.5-8.0) g/dL Albumin 4.0 (3.5-5.0) g/dL Urine Color Yellow Urine Appearance Turbid Urine pH >= 9.0 (5.0-9.0) Ur Specific [place] 1.025 (1.005-1.025) Urine Protein Trace (Neg-Trace) mg/dL Urine Glucose (UA) Negative (Negative) mg/dL Urine Ketones Negative (Negative) mg/dL Urine Blood Negative (Negative) Urine Nitrite Negative (Negative) Ur Leukocyte Esterase Negative (Negative) Radiology Impression Discussion of test interpretation with radiology: I have reviewed the radiologist's reading. (No acute intracranial abnormalities) Discharge Plan Discharge Clinical Impression: Fall, Contusion, Orthostatic hypotension Patient Disposition: Home, Self-Care Instructions: Fall Prevention (ED) Additional Instructions: Your workup in the emergency department today was reassuring. This includes your blood work, CT of the brain. You should follow-up with Neurology Return for new or worsening symptoms Increase fluid intake for the next 2-3 days Prescriptions: No Action acetaminophen 325 mg tablet 650 mg PO Q4H PRN (Reason: for headache) Qty: 60 5RF Chld Robitussin Cough-Chest DM 5-100 mg/5 mL liquid 10 ml PO Q4-8H PRN (Reason: cough) Qty: 118 3RF cholecalciferol (vitamin D3) 25 mcg (1,000 unit) tablet 25 mcg PO DAILY Qty: 90 3RF docusate sodium 100 mg capsule 100 mg PO DAILY Qty: 90 3RF clonazepam 0.5 mg tablet 0.5 mg PO DAILY PRN clotrimazole 1 % cream topical divalproex 500 mg tablet,delayed release (DR/EC) 500 mg PO BID fluvoxamine 100 mg tablet 100 mg PO BID divalproex 250 mg tablet,delayed release (DR/EC) PO BEDTIME quetiapine 200 mg tablet PO TID fluvoxamine 50 mg tablet 50 mg PO QAM haloperidol 0.5 mg tablet 0.5 mg PO DAILY
--- NOTE | 2023-01-02 16:46 | ECG_ITS ---
Test Reason : FALL DIZNESS Blood Pressure : / mmHG Vent. Rate : 106 BPM Atrial Rate : 106 BPM P-R Int : 144 ms QRS Dur : 086 ms QT Int : 328 ms P-R-T Axes : 067 041 063 degrees QTc Int : 435 ms Sinus tachycardia Otherwise normal ECG When compared with ECG of 06-JUN-2020 08:50, No significant change was found Referred By: Karoline Montaño Electronically Signed By:CAMELIA MEZA MD
[2023-01-02 17:15] LABS: MANUAL DIFF FLAG NO
[2023-01-02 17:18] LABS: Basophils Absolute Auto 0.1 X10*3/uL (0.0-0.2); Basophils Percent Auto 0.7 % (0-2); Eosinophils Percent Auto 0.3 % (0-4); Hematocrit 41.2 % (42.0-52.0); Hemoglobin 13.5 g/dl (14.0-18.0); Imm Gran Abs Auto 0.09 X10*3/uL (0.00-0.03); Imm Gran Pct Auto 1.2 % (0.0-0.4); Lymphocytes Absolute Auto 2.7 X10*3/uL (1.2-4.9); Lymphocytes Percent Auto 35.9 % (20-40); Mean Corpuscular HGB Conc 32.8 g/dl (31.0-36.0); Mean Corpuscular Hemoglobin 29.2 pg (27.0-33.0); Mean Corpuscular Volume 89.2 fL (80.0-98.0); Mean Platelet Volume 10.8 fL (9.4-12.4); Monocytes Absolute Auto 0.7 X10*3/uL (0.1-1.2); Monocytes Percent Auto 8.8 % (2-11); Neutrophils Absolute Auto 4.1 x10*3/uL (2.0-8.3); Neutrophils Percent Auto 53.1 % (45-73); Platelet Count 173 X10*3/uL (160-400); Red Blood Count 4.62 X10*6/uL (4.60-5.80); Red Cell Distribution Width 11.9 % (11.0-16.0); White Blood Count 7.6 X10*3/uL (4.8-10.8)
[2023-01-02 17:25] LABS: INTERNATIONAL NORM RATIO 0.9 (0.9-1.1)
[2023-01-02 17:30] LABS: Alanine Aminotransferase 51 U/L (0-40); Alkaline Phosphatase 108 U/L (39-117); Anion Gap 11 (12-20); Aspartate Amino Transferase 33 U/L (5-37); Bilirubin Direct 0.2 mg/dL (0.0-0.5); Bilirubin Total 0.2 mg/dL (0.0-1.0); Blood Urea Nitrogen 12 mg/dL (9-16); Calcium 9.2 mg/dL (8.4-10.2); Carbon Dioxide 29 mmol/L (22-29); Chloride 105 mmol/L (96-108); Creatinine Clr Calc Pharmacy 133.8; Estimated Glomerular Filt Rate > 60; Glucose Random 108 mg/dL (60-115); Sodium 141 mmol/L (135-145); Total Protein 6.7 g/dL (6.5-8.0)
[2023-01-02 18:21] LABS: Appearance Urine Turbid; Color Urine Yellow; Glucose Urine UA Negative (Negative); Leukocyte Esterase Urine Negative (Negative); Nitrite Urine Negative (Negative); PH >= 9.0 (5.0-9.0); Specific Gravity - Urine 1.025 (1.005-1.025); Urine Blood Negative (Negative); Urine Ketones Negative (Negative); Urine Protein Trace mg/dL (Neg-Trace)
[2023-01-02 19:57] VITALS: BP 149/94; PULSE 98
[2023-01-02 19:58] VITALS: BP 141/96; PULSE 103
[2023-01-02 19:59] VITALS: BP 117/90; PULSE 102
--- NOTE | 2023-01-02 20:12 | PC.NURSE ---
Pt nonverbal at baseline. Pt started to place self on floor slowly, redirected by group program manager. Pt ambulated with slow gait and guidance from group program manager.
== END 2023-01-02 20:14 | disposition home or self-care (01) ==
PROVIDERS: Physician Assistant; Emergency Provider Internal Medicine; PCP Internal Medicine
DX: S00.93XA Contusion of unspecified part of head, initial encounter (principal); R00.0 Tachycardia, unspecified; I95.1 Orthostatic hypotension; R51.9 Headache, unspecified; M54.2 Cervicalgia; W01.10XA Fall on same level from slipping, tripping and stumbling with subsequent striking against unspecified object, initial encounter; Y93.9 Activity, unspecified; Y92.9 Unspecified place or not applicable; Y99.9 Unspecified external cause status; Z79.899 Other long term (current) drug therapy
CPT/HCPCS: 36415; 70450; 80048; 80076; 81003; 83735; 85025; 85610; 93005; 99284

== ENCOUNTER 2023-01-13 13:22 | Outpatient (AMB) | payer OTHER, SELFPAY ==
[2023-01-13 13:28] VITALS: BP 110/78; PULSE 105; O2SAT 97; BMI 25.8
--- NOTE | 2023-01-13 13:28 | A.OFFPC_ITS ---
Vital Signs 01/13/23 13:28 Height 5 ft 10 in Weight 180 lb BMI 25.8 BP 110/78 Blood Pressure Location Lt brachial Position Sitting Pulse 105 H Pulse Source Pulse Oximeter Pulse Oximetry (%) 97 Oxygen Delivery Method Room Air Intake Visit Reasons: [facility]/ Fall on head ok per office Intake Note: Patient is here to follow-up after a visit the emergency department at [facility] on 01/02 due to fall on head. 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 Required: No Accompanied by: Other Relationship Allergies Naldecon Senior EX Allergy (Unknown, Verified 01/13/23 13:37) Unknown pineapple Allergy (Unknown, Verified 01/13/23 13:37) unknown pseudoephedrine [Sudafed] Allergy (Unknown, Verified 01/13/23 13:37) Unknown triprolidine [From Actifed] Allergy (Unknown, Verified 01/13/23 13:37) Unknown Tobacco use date assessed: 08/02/22 Dental Screening Dental Screen Date: 01/13/23 Did you have a dental visit in the last 12 months?: Yes Did you have a dental problem in the last 6 months where you did not have access to dental care?: No Was dental information given to patient?: Patient has dentist HPI [facility]/ Fall on head ok per office HPI Details Patient is a 37-year-old male here today for an ER follow-up visit. Patient has a past medical history of developmental delay. He was seen at the ER on January 02 for frequent falls. Caregiver reports he has been falling weeks prior to his presentation to the ER. He did have a small head contusion. CT of head which did evidence consistent with mild hydrocephalus. Laboratory results were grossly normal. Patient will be following up with a neurologist in February 2023. Of note patient is falling has been noted by a caregiver has in a pattern as he falls and similar spots at the [facility], has frequent falling may be related to his OCD as behavioral ? Ritual. [facility] Medical History Annual physical exam Urine incontinence Vitamin D deficiency Overweight (BMI 25.0-29.9) Seizure Obsessive compulsive disorder (or obsessive compulsive neurosis) Mental and behavioral problem Surgical History No pertinent past surgical history Social History Housing: Other (shelter) Alcohol intake: never Patient Tobacco Use Status: Never used Tobacco e-Cigarette/Vaping Use: Never Used Second Hand Smoke Exposure: No service: No Current occupational status: disabled Cognitive needs: Yes (mental and behavioral problem) Hearing needs: No Vision needs: No Questionnaire Thrive Questionnaire Date Thrive assessed: 08/02/22 DAYANARA-7 AMB Questionnaire DAYANARA-7 Date DAYANARA - 7 assessed: 08/02/22 Source: Developed by Drs. Brijesh Reyes, Ml Woodruff, Sampson Segal and colleagues, with an educational meri from [employer]. Review of Systems Const Denies headache(s) Eyes Denies loss of vision ENT Denies vertigo, Denies dizziness, Denies headache(s) and Denies sore throat Card Denies chest pain, Denies leg edema and Denies lightheadedness Resp Denies cough, Denies hemoptysis and Denies wheezing GI Denies abdominal pain, Denies melena, Denies constipation, Denies diarrhea and Denies vomiting Denies dysuria, Denies urinary frequency and Denies urinary urgency Musc Denies arthralgias, Denies joint swelling, Denies numbness and Denies tingling Neuro Denies Abnormal speech present, Denies behavioral changes, Denies vertigo, Denies dizziness, Denies headache(s), Denies loss of vision, Denies memory loss, Denies numbness and Denies tingling Psych Denies anxiety, Denies behavioral changes, Denies depression, Denies memory loss and Denies panic attacks Manuel[place]/Lymph Denies easy bleeding and Denies easy bruising Aller/Immun Denies wheezing Physical exam (Primary Care) Vital Signs: Last Vital Signs Pulse 105 H 01/13/23 13:28 BP 110/78 01/13/23 13:28 Pulse Ox 97 01/13/23 13:28 Oxygen Delivery Method Room Air 01/13/23 13:28 BMI result Body Mass Index 25.8 Tobacco/Smoking Status: Tobacco use Status Tobacco use date assessed 08/02/22 01/13/23 13:29 Patient Tobacco Use Status Never used Tobacco 01/13/23 13:29 e-Cigarette/Vaping Use Never Used 01/13/23 13:29 Thrive Assessment: Date of Thrive Assessment Date Thrive assessed 08/02/22 01/13/23 13:29 Const General: healthy appearing, no acute distress, alert and awake Nutritional Appearance: well nourished Orientation/consciousness: oriented to person, oriented to place and oriented to time HENMT Ears: TM's normal bilaterally General nose exam: Normal nasal mucous membranes and turbinates present Eyes Conjunctivae: conjunctivae normal Sclerae: sclerae normal Pupils: Equal, round and reactive pupils present Neck Neck: Yes no lymphadenopathy and Yes no JVD Thyroid: Thyroid normal Carotids: no bruits Resp Effort & Inspection: normal respiratory effort and not tachypneic Auscultation: no crackles, no rales, no rhonchi and no wheezes Cardio Rate: regular rate Rhythm: regular rhythm Heart sounds: no murmurs and normal S1 and S2 GI Palpation (GI): Soft to palpation, nontender, no hepatomegaly and no splenomegaly Auscultation: normal bowel sounds Skin General skin exam: no rashes or lesions noted and dry skin Neuro General: oriented to person, oriented to place and oriented to time Cranial nerves: Yes Equal, round and reactive pupils present Speech: No Abnormal speech present Gait exam (Neuro): Normal gait present Motor exam (neuro): no tremor noted Extrem Right upper extremity: full ROM Left upper extremity: full ROM Right lower extremity: full ROM; no edema Left lower extremity: full ROM; no edema Psych Mental Status: mental status grossly normal Speech and movement: Normal speech and movement present Affect: normal affect Attitude: cooperative Thought process: Normal thought process present Assessment and Plan Assessment & Plan (1) Recurrent falls: Code(s): R29.6 - Repeated falls Plan: 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 No seizure activity noted during falls. terrazzo worker helper her whom works with him notices that there is a pattern to his falling as he is falls in the same spot. So seems that is following appears to be Behavioral. Followed up with his psychiatrist whom increased his dose of Haldol. CT of brain showing with seems to be mild fluid. Will be following up in Neurology on this. (2) Obsessive compulsive disorder (or obsessive compulsive neurosis): Code(s): F42.9 - Obsessive-compulsive disorder, unspecified Qualifiers: Obsessive-compulsive disorder type: mixed obsessional thoughts and acts Qualified Code(s): F42.2 - Mixed obsessional thoughts and acts Coding Level of Care Code Est Pt Level 3 (54992) Diagnoses Recurrent falls R29.6 Mixed obsessional thoughts and acts F42.2 Obsessive-compulsive disorder type: mixed obsessional thoughts and acts
== END 2023-01-13 14:00 | disposition home or self-care (01) ==
PROVIDERS: PCP Internal Medicine; Visit Provider Physician Assistant
DX: R29.6 Repeated falls (principal); F42.2 Mixed obsessional thoughts and acts
CPT/HCPCS: 99213

== ENCOUNTER 2023-02-08 08:53 | Outpatient (AMB) | payer OTHER, SELFPAY ==
[2023-02-08 08:57] VITALS: BP 122/80; PULSE 126; O2SAT 98; BMI 40.6
--- NOTE | 2023-02-08 08:57 | A.OFFPC_ITS ---
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 Required: No Allergies Naldecon Senior EX Allergy (Unknown, Verified 02/08/23 08:57) Unknown pineapple Allergy (Unknown, Verified 02/08/23 08:57) unknown pseudoephedrine [Sudafed] Allergy (Unknown, Verified 02/08/23 08:57) Unknown triprolidine [From Actifed] Allergy (Unknown, Verified 02/08/23 08:57) Unknown Tobacco use date assessed: 02/08/23 Dental Screening Dental Screen Date: 02/08/23 Did you have a dental visit in the last 12 months?: Yes Did you have a dental problem in the last 6 months where you did not have access to dental care?: No Was dental information given to patient?: Patient has dentist HPI ED Follow Up HPI Details 37-year-old overweight male obsessive-co mpulsive disorder with a history of seizures coming in for follow-up. Last seen in December 2022. Patient has been having recurrent falls and has been referred to neurology. Review of the notes ER visit in [facility] 02/01/2023 had a fall complains of right foot pain with trauma to left side of the face diagnosis of facial contusion with abrasion of the right patient has been seen for follow-up here states has been falling in the same spot. patient oin making him walk ? getting stuck on the floor and went down slowly ? behaviour- will be seeing Neurology this tuesday [facility] Medical History Annual physical exam Urine incontinence Vitamin D deficiency Overweight (BMI 25.0-29.9) Seizure Obsessive compulsive disorder (or obsessive compulsive neurosis) Mental and behavioral problem Surgical History No pertinent past surgical history Social History Housing: Other (senior care) Alcohol intake: never Patient Tobacco Use Status: Never used Tobacco e-Cigarette/Vaping Use: Never Used Second Hand Smoke Exposure: No service: No Current occupational status: disabled Cognitive needs: Yes (mental and behavioral problem) Hearing needs: No Vision needs: No Questionnaire PHQ-9 Over the last 2 weeks, how often have you been bothered by any of the following problems? 1. Little interest or pleasure in doing things: not at all 2. Feeling down, depressed, or hopeless: not at all 3. Trouble falling or staying asleep, or sleeping too much: not at all 4. Feeling tired or having little energy: not at all 5. Poor appetite or overeating: not at all 6. Feeling bad about yourself - or that you are a failure or have let yourself or your family down: not at all 7. Trouble concentrating on things, such as reading the newspaper or watching television: not at all 8. Moving or speaking so slowly that other people could have noticed. Or the opposite - being so fidgety or restless that you have been moving around a lot more than usual: not at all 9. Thoughts that you would be better off or of hurting yourself in some way: not at all Total score: 0 Depression Screening Interpretation: Negative Depression Screening Done: Yes Source: Developed by Drs. Brijesh Reyes, Ml Woodruff, Sampson Segal and colleagues, with an educational meri from [employer]. Thrive Questionnaire Date Thrive assessed: 08/02/22 AUDIT C Alcohol Use Questionnaire (AUDIT-C) 1. How often do you have a drink containing alcohol?: Never 3. How often do you have six or more drinks on one occasion?: Never Total Score: 0 DAYANARA-7 AMB Questionnaire DAYANARA-7 Date DAYANARA - 7 assessed: 02/08/23 Feeling nervous, anxious, or on edge: 0 = Not at all Not being able to stop or control worryin = Not at all Worrying too much about different things: 0 = Not at all Trouble relaxin = Not at all Being so restless that it is hard to sit still: 0 = Not at all Becoming easily annoyed or irritable: 0 = Not at all Feeling afraid as if something awful might happen: 0 = Not at all Total DAYANARA-7 score (0-4 normal; 5-9 mild; 10-14 moderate; 15-21 severe): 0 Source: Developed by Drs. Brijesh Reyes, Ml Woodruff, Sampson Segal and colleagues, with an educational meri from [employer]. Physical exam (Primary Care) Vital Signs: Last Vital Signs Pulse 126 H 02/08/23 08:57 BP 122/80 02/08/23 08:57 Pulse Ox 98 02/08/23 08:57 Oxygen Delivery Method Room Air 02/08/23 08:57 BMI result Body Mass Index 40.6 Tobacco/Smoking Status: Tobacco use Status Tobacco use date assessed 02/08/23 02/08/23 08:58 Patient Tobacco Use Status Never used Tobacco 02/08/23 08:58 e-Cigarette/Vaping Use Never Used 02/08/23 08:58 PHQ-9: PHQ-9 Score PHQ-9: Total score 0 02/08/23 09:05 Depression Screening Interpretation: Negative Thrive Assessment: Date of Thrive Assessment Date Thrive assessed 08/02/22 02/08/23 08:58 Const General: alert; No acute distress Eyes Conjunctivae: conjunctivae normal Resp Auscultation: clear to auscultation bilaterally Cardio Rate: regular rate Rhythm: regular rhythm GI Inspection: Yes normal to inspection Extrem General: Yes normal to inspection and No edema Assessment and Plan Assessment & Plan (1) Recurrent falls: Code(s): R29.6 - Repeated falls Plan: Patient has been referred to neurology and awaiting - tuesday (2) Seizure: Code(s): R56.9 - Unspecified convulsions Plan: Presently on Depakote (3) Obsessive compulsive disorder (or obsessive compulsive neurosis): Code(s): F42.9 - Obsessive-compulsive disorder, unspecified Qualifiers: Obsessive-compulsive disorder type: mixed obsessional thoughts and acts Qualified Code(s): F42.2 - Mixed obsessional thoughts and acts Plan: Patient id follows up with psychiatry presently on fluvoxamine, clonazepam and quetiapine (4) Mental and behavioral problem: Code(s): F48.9 - Nonpsychotic mental disorder, unspecified; F69 - Unspecified disorder of adult personality and behavior Plan: Continue to follow-up with psychiatry (5) Orthostatic hypotension: Code(s): I95.1 - Orthostatic hypotension Plan: Discussed the causes of orthostasis fluids Haldol question clonazepam?. Advised to keep the patient well-hydrated. Coding Level of Care Code Est Pt Level 4 (28191) Diagnoses Recurrent falls R29.6 Seizure R56.9 Mixed obsessional thoughts and acts F42.2 Obsessive-compulsive disorder type: mixed obsessional thoughts and acts Mental and behavioral problem F48.9; F69 Orthostatic hypotension I95.1
== END 2023-02-08 09:41 | disposition home or self-care (01) ==
PROVIDERS: PCP Internal Medicine; Visit Provider Internal Medicine
DX: R29.6 Repeated falls (principal); R56.9 Unspecified convulsions; F42.2 Mixed obsessional thoughts and acts; F48.9 Nonpsychotic mental disorder, unspecified; F69 Unspecified disorder of adult personality and behavior; I95.1 Orthostatic hypotension
CPT/HCPCS: 99214

== ENCOUNTER 2023-02-11 12:51 | Outpatient (AMB) | payer OTHER, SELFPAY ==
--- NOTE | 2023-02-11 12:59 | MHC.OFFVIS ---
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 Pt resides [facility]). He is here with Thuan Sidewalk Inspector and Elena, Sheet Metal Technician and Olive, Nurse. They report in November 2022 pt began to have constant falls, on average 10 per day. They deny loss of consciousness, just that his knees buckle. There is a question if this is behavioral. [employer] Executive Director Required: No Allergies Naldecon Senior EX Allergy (Unknown, Verified 02/08/23 08:57) Unknown pseudoephedrine [Sudafed] Allergy (Unknown, Verified 02/08/23 08:57) Unknown triprolidine [From Actifed] Allergy (Unknown, Verified 02/08/23 08:57) Unknown HPI HPI Comments History of Present Illness Details 37 y/o male patient presents for new in-person visit for evaluation of recurrent falls. Pt is accompanied by [facility] staffs and nurse. Pt has past medical history of developmental delay, OCD and autism. He is non verbal. Per [facility] staffs, pt had the first fall in November 2022, and then he has been falling almost everyday. Pt had a CT of head in December in ER which did evidence consistent with mild hydrocephalus. He has trouble getting out of bed in the morning, but he always can get out of bed at his second trial. The nursing staff states that he always tries to find a spot to hold to walk, and he walks holding wall or furniture. He has been falling in the same spot, seems like his knees giving out, stopped for couple of seconds and went down slowly. He can get up after fall quickly, and can walk. The nursing staffs states that patient does not have problem holding urine usually, but can happen when he drinks too much. Pt had hx of left knee pain and XR done. Left knee Xray result was No acute osseous abnormality. Joint spaces are maintained without significant degenerative change. Right foot XR result was Small retrocalcaneal enthesophyte. Otherwise unremarkable right foot exam. 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 (skilled nursing) Alcohol intake: never Patient Tobacco Use Status: Never used Tobacco e-Cigarette/Vaping Use: Never Used Second Hand Smoke Exposure: No service: No Current occupational status: disabled Cognitive needs: Yes (mental and behavioral problem) Hearing needs: No Vision needs: No Review of Systems Const All systems reviewed & are unremarkable except as noted in HPI and below Physical Exam Vital Signs: Last Vital Signs Pulse 111 H 02/11/23 13:00 Resp 16 02/11/23 13:00 BP 142/78 H 02/11/23 13:00 Pulse Ox 96 02/11/23 13:00 Oxygen Delivery Method Room Air 02/11/23 13:00 BMI result Body Mass Index 26.0 Const General: cooperative Nutritional Appearance: overweight Neck Neck: Yes full ROM and Yes supple Neuro Other: Non verbal. Toe walking, holding soto when he walks. Had two episodes of knee bend and pause, and able to stand back up, and walk. No falls. Cranial nerves: Yes Normal facial strength present, Yes Midline tongue present and Yes Ability to bilaterally rotate head present Deep tendon reflexes (DTR's): Rt Biceps (C5, C6): 2+, Left biceps reflex intensity grade: 2+, Right brachioradialis reflex intensity grade: 2+, Left brachioradialis reflex intensity grade: 2+, Right patellar reflex intensity grade: 2+ and Left patellar reflex intensity grade: 2+ Psych Appearance: grossly normal Assessment & Plan Assessment & Plan (1) Recurrent falls: Code(s): R29.6 - Repeated falls Plan Advised patient to undergo brain MRI to assess hydrocephalus. Pt referred to physical therapy. Orders: Orders MR head/brain wo con Today R29.6 - Repeated falls Coding Level of Care Code New Pt Level 3 (93891) Diagnoses Recurrent falls R29.6
[2023-02-11 13:00] VITALS: BP 142/78; PULSE 111; RESP 16; O2SAT 96; BMI 26.0
== END 2023-02-11 13:34 | disposition home or self-care (01) ==
PROVIDERS: PCP Internal Medicine; Visit Provider Nurse Practitioner Family
DX: R29.6 Repeated falls (principal)
CPT/HCPCS: 99203

== ENCOUNTER → 2023-02-11 12:51 | Outpatient (BNVA) | payer OTHER, SELFPAY | PROVIDERS: PCP Internal Medicine; Visit Provider Nurse Practitioner Family | DX: R29.6 Repeated falls (principal) | CPT/HCPCS: 99202 ==

== ENCOUNTER 2023-03-29 14:35 | Outpatient (AMB) | payer OTHER, SELFPAY ==
[2023-03-29 14:39] VITALS: BP 126/84; PULSE 101; O2SAT 98; BMI 25.4
--- NOTE | 2023-03-29 14:39 | A.OFFPC_ITS ---
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 Last seen in February had recurrent falls and referred to Neurology. Review of the notes patient was seen in the hospital ER due to a fall with head trauma deny any loss of consciousness evaluated and sent home. Patient was sent to the neurology CT scan of the head in December showed evidence of mild hydrocephalus patient was advised to undergo an MRI and referred for physical therapy . apetitte is good but noted wieght loss, fell this am again sustaing and L eye brow cut patient on examination when he starts to walk tries to been down as if to fall but with the social insurance specialist holding onto him then he gets up again. Question of behavioral. Otherwise discussed that with the abnormal blood work that was done in December will follow-up on this. [facility] Medical History Annual physical exam Urine incontinence Vitamin D deficiency Overweight (BMI 25.0-29.9) Seizure Obsessive compulsive disorder (or obsessive compulsive neurosis) Mental and behavioral problem Surgical History No pertinent past surgical history Social History Housing: Other (care home) Alcohol intake: never Patient Tobacco Use Status: Never used Tobacco e-Cigarette/Vaping Use: Never Used Second Hand Smoke Exposure: No service: No Current occupational status: disabled Cognitive needs: Yes (mental and behavioral problem) Hearing needs: No Vision needs: No Questionnaire Thrive Questionnaire Date Thrive assessed: 08/02/22 AUDIT C Alcohol Use Questionnaire (AUDIT-C) 1. How often do you have a drink containing alcohol?: Never 3. How often do you have six or more drinks on one occasion?: Never Total Score: 0 DAYANARA-7 AMB Questionnaire DAYANARA-7 Date DAYANARA - 7 assessed: 02/08/23 Source: Developed by Drs. Brijesh Reyes, Ml Woodruff, Sampson Segal and colleagues, with an educational meri from [email or web address]. Physical exam (Primary Care) Vital Signs: Last Vital Signs Pulse 101 H 03/29/23 14:39 BP 126/84 03/29/23 14:39 Pulse Ox 98 03/29/23 14:39 Oxygen Delivery Method Room Air 03/29/23 14:39 BMI result Body Mass Index 25.4 Tobacco/Smoking Status: Tobacco use Status Tobacco use date assessed 03/29/23 03/29/23 14:40 Patient Tobacco Use Status Never used Tobacco 03/29/23 14:40 e-Cigarette/Vaping Use Never Used 03/29/23 14:40 Thrive Assessment: Date of Thrive Assessment Date Thrive assessed 08/02/22 03/29/23 14:40 Const General: alert; No acute distress Eyes Conjunctivae: conjunctivae normal Resp Auscultation: clear to auscultation bilaterally Cardio Rate: regular rate Rhythm: regular rhythm GI Inspection: Yes normal to inspection Extrem General: Yes normal to inspection and No edema Assessment and Plan Assessment & Plan (1) Recurrent falls: Code(s): R29.6 - Repeated falls (2) Hydrocephalus: Code(s): G91.9 - Hydrocephalus, unspecified (3) Obsessive compulsive disorder (or obsessive compulsive neurosis): Code(s): F42.9 - Obsessive-compulsive disorder, unspecified Qualifiers: Obsessive-compulsive disorder type: mixed obsessional thoughts and acts Qualified Code(s): F42.2 - Mixed obsessional thoughts and acts (4) Seizure: Code(s): R56.9 - Unspecified convulsions (5) LFT elevation: Code(s): R79.89 - Other specified abnormal findings of blood chemistry (6) Anemia: Code(s): D64.9 - Anemia, unspecified (7) Weight loss: Code(s): R63.4 - Abnormal weight loss Orders: Orders Hepatitis B,C Profile Today R79.89 - Other specified abnormal findings of blood chemistry Comprehensive Met. Panel Today R79.89 - Other specified abnormal findings of blood chemistry Ferritin Today D64.9 - Anemia, unspecified Reticulocyte Count Today D64.9 - Anemia, unspecified Thyroid Stimulating Hormone Today R63.4 - Abnormal weight loss Free T4 (Free Thyroxine) Today R63.4 - Abnormal weight loss Complete Blood Count Auto Diff Today D64.9 - Anemia, unspecified IRON PROFILE Today D64.9 - Anemia, unspecified Vitamin B12 and Folate Today D64.9 - Anemia, unspecified US abdomen complete Today R79.89 - Other specified abnormal findings of blood chemistry Coding Level of Care Code Est Pt Level 4 (31198) Diagnoses Recurrent falls R29.6 Hydrocephalus G91.9 Mixed obsessional thoughts and acts F42.2 Obsessive-compulsive disorder type: mixed obsessional thoughts and acts Seizure R56.9 LFT elevation R79.89 Anemia D64.9 Weight loss R63.4
== END 2023-03-29 15:08 | disposition home or self-care (01) ==
PROVIDERS: PCP Internal Medicine; Visit Provider Internal Medicine
DX: R29.6 Repeated falls (principal); G91.9 Hydrocephalus, unspecified; F42.2 Mixed obsessional thoughts and acts; R56.9 Unspecified convulsions; R79.89 Other specified abnormal findings of blood chemistry; D64.9 Anemia, unspecified; R63.4 Abnormal weight loss
CPT/HCPCS: 99214

== ENCOUNTER 2023-03-29 15:14 | Outpatient (REF) | payer OTHER, SELFPAY ==
[2023-03-29 15:57] LABS: Basophils Percent Auto 0.6 % (0-2); Eosinophils Percent Auto 0.6 % (0-4); Hematocrit 44.7 % (42.0-52.0); Hemoglobin 14.8 g/dl (14.0-18.0); Imm Gran Abs Auto 0.03 X10*3/uL (0.00-0.03); Imm Gran Pct Auto 0.6 % (0.0-0.4); Immature Retic Fraction 9.6 % (2.3-13.4); Lymphocytes Absolute Auto 2.2 X10*3/uL (1.2-4.9); Lymphocytes Percent Auto 40.6 % (20-40); MANUAL DIFF FLAG NO; Mean Corpuscular HGB Conc 33.1 g/dl (31.0-36.0); Mean Corpuscular Hemoglobin 29.4 pg (27.0-33.0); Mean Corpuscular Volume 88.9 fL (80.0-98.0); Mean Platelet Volume 10.7 fL (9.4-12.4); Monocytes Absolute Auto 0.4 X10*3/uL (0.1-1.2); Monocytes Percent Auto 7.8 % (2-11); Neutrophils Absolute Auto 2.7 x10*3/uL (2.0-8.3); Neutrophils Percent Auto 49.8 % (45-73); Platelet Count 184 X10*3/uL (160-400); Red Blood Count 5.03 X10*6/uL (4.60-5.80); Red Cell Distribution Width 11.9 % (11.0-16.0); Retic HGB Equivalent 33.5 pg (30.0-35.0); Reticulocyte Percent 1.4 % (0.5-1.8); Reticulocytes Absolute 0.068 X10*6/uL (0.026-0.095); White Blood Count 5.4 X10*3/uL (4.8-10.8)
[2023-03-29 16:47] LABS: Alanine Aminotransferase 25 U/L (0-40); Albumin Level 4.3 g/dL (3.5-5.0); Alkaline Phosphatase 93 U/L (39-117); Anion Gap 15 (12-20); Aspartate Amino Transferase 19 U/L (5-37); Bilirubin Total 0.2 mg/dL (0.0-1.0); Blood Urea Nitrogen 10 mg/dL (9-16); Calcium 9.8 mg/dL (8.4-10.2); Carbon Dioxide 30 mmol/L (22-29); Chloride 105 mmol/L (96-108); Estimated Glomerular Filt Rate > 60; Glucose Random 100 mg/dL (60-115); Iron 72 mcg/dL (45-160); Percent Iron Saturation 25 % (15-50); Potassium 3.9 mmol/L (3.3-5.1); Sodium 146 mmol/L (135-145); Total Iron Binding Capacity 289 mcg/dL (228-428); Total Protein 7.1 g/dL (6.5-8.0); Unsaturated Iron Binding 217 ug/dL
[2023-03-29 16:52] LABS: Ferritin 341 ng/mL (20-250); Thyroid Stimulating Hormone 1.27 uIU/mL (0.32-4.0)
[2023-03-29 18:12] LABS: Folate 11.1 ng/mL (> or = 4.0)
[2023-03-29 19:25] LABS: Vitamin B12 803 pg/mL (200-900)
[2023-03-30 02:31] LABS: HBS Num1 315.19 mIU/mL (0-7.99); HBc Num1 0.07 S/CO (0.00-0.79); HBsAGNum1 0.37 S/CO (0.00-0.99); Hepatitis B Core Antibody Nonreactive (Nonreactive); Hepatitis B Surface Antigen Negative (Negative); ~Hepatitis B Surface Antibody REACTIVE (Nonreactive); ~Hepatitis C Antibody Nonreactive (Nonreactive)
== END 2023-03-29 15:15 | disposition home or self-care (01) ==
LOC: HO.LAB 15:14
PROVIDERS: PCP Internal Medicine; Visit Provider Internal Medicine
DX: D64.9 Anemia, unspecified (principal); R79.89 Other specified abnormal findings of blood chemistry; R63.4 Abnormal weight loss
CPT/HCPCS: 36415; 80053; 82607; 82728; 82746; 83540; 84439; 84443; 85025; 85045; 86704; 86706; 86803; 87340

== ENCOUNTER 2023-04-15 09:32 | Outpatient (REF) | payer OTHER, SELFPAY ==
--- NOTE | ~2023-04-15 | US_ITS ---
EXAMINATION: US ABDOMEN COMPLETE CLINICAL INFORMATION: Elevated LFTs. COMPARISON: None available. TECHNIQUE: Real-time imaging of the abdominal viscera. Technically difficult study secondary to continuous movement and inability to move into the decubitus view. FINDINGS: PANCREAS: The pancreas is obscured by bowel gas. ABDOMINAL AORTA: The proximal and distal abdominal aorta are normal caliber. The mid abdominal aorta is obscured by bowel gas. INFERIOR VENA CAVA: Visualized portions are normal. LIVER: Normal. The liver is normal in size. The liver contour is normal. Parenchymal echogenicity is normal. No focal hepatic lesion. There is no intrahepatic biliary duct dilatation seen. GALLBLADDER: Normal. The gallbladder is physiologically distended without evidence of stones, sludge, polyps, wall thickening or pericholecystic fluid. COMMON BILE DUCT: The common bile duct is obscured by bowel gas. RIGHT KIDNEY: Normal. No hydronephrosis. No renal calculi or focal parenchymal lesions. The kidney measures 12.5 cm in maximum dimension. LEFT KIDNEY: Normal. No hydronephrosis. No renal calculi or focal parenchymal lesions. The kidney measures 13.8 cm in maximum dimension. SPLEEN: Normal. The spleen measures 8.8 cm in maximum dimension. FREE FLUID: None. US/US abdomen complete IMPRESSION: 1. No abnormality demonstrated. 2. The pancreas, common bile duct and mid abdominal aorta are obscured by bowel gas.
== END 2023-04-15 09:33 | disposition home or self-care (01) ==
LOC: HO.US 09:32
PROVIDERS: PCP Internal Medicine; Visit Provider Internal Medicine
DX: R79.89 Other specified abnormal findings of blood chemistry (principal)
CPT/HCPCS: 76700

== ENCOUNTER 2023-04-21 08:20 | Outpatient (REF) | payer OTHER, SELFPAY ==
[2023-04-21 10:04] LABS: Valproate 89.9 mcg/mL (50.0-100.0)
[2023-04-21 10:07] LABS: Alanine Aminotransferase 56 U/L (0-40); Albumin Level 4.4 g/dL (3.5-5.0); Alkaline Phosphatase 146 U/L (39-117); Aspartate Amino Transferase 51 U/L (5-37); Bilirubin Direct 0.2 mg/dL (0.0-0.5); Bilirubin Total 0.3 mg/dL (0.0-1.0); Total Protein 7.3 g/dL (6.5-8.0)
== END 2023-04-21 08:21 | disposition home or self-care (01) ==
LOC: HO.LAB 08:20
PROVIDERS: Visit Provider General Practice
DX: F31.4 Bipolar disorder, current episode depressed, severe, without psychotic features (principal); F84.0 Autistic disorder; Z79.899 Other long term (current) drug therapy
CPT/HCPCS: 36415; 80076; 80164

== ENCOUNTER 2023-04-22 13:04 | Outpatient (AMB) | payer OTHER, SELFPAY ==
--- NOTE | 2023-04-22 13:05 | A.OFFVIS_ITS ---
Intake Vital Signs 04/22/23 13:10 Height 5 ft 10 in Weight 175 lb 8 oz BMI 25.2 BP 130/80 Blood Pressure Location Rt brachial Position Sitting Pulse 84 Pulse Source Pulse Oximeter Pulse Oximetry (%) 96 Oxygen Delivery Method Room Air Intake Visit Reasons: 2M f/u - CONF w/address Intake Note: Patient presents for 2 month f/u. Allergies Naldecon Senior EX Allergy (Unknown, Verified 04/22/23 13:09) Unknown pseudoephedrine [Sudafed] Allergy (Unknown, Verified 04/22/23 13:09) Unknown triprolidine [From Actifed] Allergy (Unknown, Verified 04/22/23 13:09) Unknown HPI HPI Comments History of Present Illness Details 38 y/o male patient presents for follow up visit for recurrent falls. Pt is accompanied by [facility] staffs and nurse. Pt has past medical history of developmental delay, OCD and autism. He is non verbal. Pt did not have physical therapy. OT will come from [facility] within a month. He still falling at the same place, always next to wall, never fall in the open area. His falling more likely hesitation, bending his knees but not actual fall. Pt tried brain MRI, but he kept moving, tried clonazepam to clam him down, but not helpful. Need a new brain MRI at [facility]. Per [facility] staffs, pt had the first fall in November 2022, and then he has been falling almost everyday. Pt had a CT of head in December in ER which did evidence consistent with mild hydrocephalus. He has trouble getting out of bed in the morning, but he always can get out of bed at his second trial. The nursing staff states that he always tries to find a spot to hold to walk, and he walks holding wall or furniture. He has been falling in the same spot, seems like his knees giving out, stopped for couple of seconds and went down slowly. He can get up after fall quickly, and can walk. The nursing staffs states that patient does not have problem holding urine usually, but can happen when he drinks too much. [facility] Medical History Annual physical exam Urine incontinence Vitamin D deficiency Overweight (BMI 25.0-29.9) Seizure Obsessive compulsive disorder (or obsessive compulsive neurosis) Mental and behavioral problem Surgical History No pertinent past surgical history Social History Housing: Other (half-way) Alcohol intake: never Patient Tobacco Use Status: Never used Tobacco e-Cigarette/Vaping Use: Never Used Second Hand Smoke Exposure: No service: No Current occupational status: disabled Cognitive needs: Yes (mental and behavioral problem) Hearing needs: No Vision needs: No Review of Systems Const All systems reviewed & are unremarkable except as noted in HPI and below Physical Exam Vital Signs: Last Vital Signs Pulse 84 04/22/23 13:10 BP 130/80 04/22/23 13:10 Pulse Ox 96 04/22/23 13:10 Oxygen Delivery Method Room Air 04/22/23 13:10 BMI result Body Mass Index 25.2 Const General: cooperative Nutritional Appearance: overweight Neck Neck: Yes full ROM and Yes supple Neuro Other: Non verbal. Toe walking, holding soto when he walks. Had two episodes of knee bend and pause, and able to stand back up, and walk. No falls. Cranial nerves: Yes Normal facial strength present, Yes Midline tongue present and Yes Ability to bilaterally rotate head present Deep tendon reflexes (DTR's): Rt Biceps (C5, C6): 2+, Left biceps reflex intensity grade: 2+, Right brachioradialis reflex intensity grade: 2+, Left brachioradialis reflex intensity grade: 2+, Right patellar reflex intensity grade: 2+ and Left patellar reflex intensity grade: 2+ Psych Appearance: grossly normal Assessment & Plan Assessment & Plan (1) Recurrent falls: Code(s): R29.6 - Repeated falls Plan Advised patient to undergo brain MRI to assess hydrocephalus. New brain MRI order sent to [facility]. Coding Level of Care Code Est Pt Level 3 (40409) Diagnoses Recurrent falls R29.6
[2023-04-22 13:10] VITALS: BP 130/80; PULSE 84; O2SAT 96; BMI 25.2
== END 2023-04-22 13:25 | disposition home or self-care (01) ==
PROVIDERS: PCP Internal Medicine; Visit Provider Nurse Practitioner Family
DX: R29.6 Repeated falls (principal)
CPT/HCPCS: 99213

== ENCOUNTER → 2023-04-22 13:04 | Outpatient (BNVA) | payer OTHER, SELFPAY | PROVIDERS: PCP Internal Medicine; Visit Provider Nurse Practitioner Family | DX: R29.6 Repeated falls (principal) | CPT/HCPCS: 99212 ==

== ENCOUNTER 2023-05-10 11:04 | Outpatient (AMB) | payer OTHER, SELFPAY ==
[2023-05-10 11:15] VITALS: BP 122/76; PULSE 106; O2SAT 98
--- NOTE | 2023-05-10 11:15 | AM.OFFWIN_ITS ---
Intake Vital Signs 05/10/23 11:15 Height 5 ft 10 in BP 122/76 Blood Pressure Location Lt brachial Position Sitting Pulse 106 H Pulse Source Pulse Oximeter Pulse Oximetry (%) 98 Oxygen Delivery Method Room Air Intake Visit Reasons: EP scratch on forehead (lobby) Intake Note: pt is here for scratch on forehead Patient Tobacco Use Status: Never used Tobacco Allergies Naldecon Senior EX Allergy (Unknown, Verified 05/10/23 11:15) Unknown pseudoephedrine [Sudafed] Allergy (Unknown, Verified 05/10/23 11:15) Unknown triprolidine [From Actifed] Allergy (Unknown, Verified 05/10/23 11:15) Unknown Do you need a note to return to daycare/school/sports/work: Yes HPI HPI Comments History of Present Illness Details 38-year-old male brought in by his atten dant with a abrasion on the r ight side of his forehead. The tendons states that what he scraped it against the unknown but it was not a person or an altercation. The patient does not appear to be in any distress [facility] Medical History Annual physical exam Urine incontinence Vitamin D deficiency Overweight (BMI 25.0-29.9) Seizure Obsessive compulsive disorder (or obsessive compulsive neurosis) Mental and behavioral problem Surgical History No pertinent past surgical history Social History Housing: Other Alcohol intake: never Patient Tobacco Use Status: Never used Tobacco e-Cigarette/Vaping Use: Never Used Second Hand Smoke Exposure: No service: No Current occupational status: disabled Cognitive needs: Yes (mental and behavioral problem) Hearing needs: No Vision needs: No Review of Systems Const All systems reviewed & are unremarkable except as noted in HPI and below Physical Exam Vital Signs: Last Vital Signs Pulse 106 H 05/10/23 11:15 BP 122/76 05/10/23 11:15 Pulse Ox 98 05/10/23 11:15 Oxygen Delivery Method Room Air 05/10/23 11:15 Const General: healthy appearing and no acute distress Skin Rashes: rashes noted (3 cm abrasion on the right anterior forehead) Assessment & Plan Assessment & Plan (1) Abrasion head: Code(s): S00.91XA - Abrasion of unspecified part of head, initial encounter Plan: The patient was given a Tdap for which she was due and no treatment necessary reason of his forehead. Follow up as needed Plan See plan Orders: Orders TDaP Immunization Today S00.91XA - Abrasion of unspecified part of head, initial encounter, Z23 - Encounter for immunization Coding Level of Care Code Est Pt Level 3 (99427) Diagnoses Abrasion head S00.91XA
== END 2023-05-10 11:48 | disposition home or self-care (01) ==
PROVIDERS: PCP Internal Medicine; Visit Provider Physician Assistant Medical
DX: Z23 Encounter for immunization (principal); S00.91XA Abrasion of unspecified part of head, initial encounter
CPT/HCPCS: 90471; 90715; 99213

== ENCOUNTER 2023-07-07 13:11 | Outpatient (AMB) | payer OTHER, SELFPAY ==
[2023-07-07 13:11] VITALS: BP 124/68; PULSE 106; O2SAT 96; BMI 25.4
--- NOTE | 2023-07-07 13:11 | A.OFFPC_ITS ---
Vital Signs 07/07/23 13:11 Height 5 ft 10 in Weight 177 lb BMI 25.4 BP 124/68 Blood Pressure Location Lt brachial Position Sitting Pulse 106 H Pulse Source Pulse Oximeter Pulse Oximetry (%) 96 Oxygen Delivery Method Room Air Intake Visit Reasons: 3mth f/u Allergies Naldecon Senior EX Allergy (Unknown, Verified 07/07/23 13:17) Unknown pseudoephedrine [Sudafed] Allergy (Unknown, Verified 07/07/23 13:17) Unknown triprolidine [From Actifed] Allergy (Unknown, Verified 07/07/23 13:17) Unknown Tobacco use date assessed: 07/07/23 Dental Screening Dental Screen Date: 03/29/23 HPI 3mth f/u HPI Details 38-year-old male with a mental behaviora l problem with obsessive- compulsive disorder history of seizures anemia coming in for follow-up. Last seen in 03/29/2023. Review of the notes recent ER visit due to a fall sustaining a lower lip laceration. Patient had an MRI of the brain 03/29/2023 showing no findings of an acute intracranial process and no hydrocephalus. Had another fall prior to that May 17 CT scan was done with no intracranial pathology has tiny scalp hematoma right frontotemporal area. May 14 fall and sustained laceration on the nose. April 22 2023 patient was seen by the Neurology this is when the neurologist have requested for an MRI of the brain. [facility] Medical History (Updated 07/07/23 @ 13:38 by Luc Shelby MD) Hydrocephalus Annual physical exam Urine incontinence Vitamin D deficiency Overweight (BMI 25.0-29.9) Seizure Obsessive compulsive disorder (or obsessive compulsive neurosis) Mental and behavioral problem Surgical History No pertinent past surgical history Social History Housing: Other Alcohol intake: never Patient Tobacco Use Status: Never used Tobacco e-Cigarette/Vaping Use: Never Used Second Hand Smoke Exposure: No service: No Current occupational status: disabled Cognitive needs: Yes (mental and behavioral problem) Hearing needs: No Vision needs: No Questionnaire Thrive Questionnaire Date Thrive assessed: 08/02/22 AUDIT C Alcohol Use Questionnaire (AUDIT-C) 1. How often do you have a drink containing alcohol?: Never 3. How often do you have six or more drinks on one occasion?: Never Total Score: 0 DAYANARA-7 AMB Questionnaire DAYANARA-7 Date DAYANARA - 7 assessed: 02/08/23 Source: Developed by Drs. Brijesh Reyes, Ml Woodruff, Sampson Segal and colleagues, with an educational meri from [employer]. Physical exam (Primary Care) Vital Signs: Last Vital Signs Pulse 106 H 07/07/23 13:11 BP 124/68 07/07/23 13:11 Pulse Ox 96 07/07/23 13:11 Oxygen Delivery Method Room Air 07/07/23 13:11 BMI result Body Mass Index 25.4 Tobacco/Smoking Status: Tobacco use Status Tobacco use date assessed 07/07/23 07/07/23 13:17 Patient Tobacco Use Status Never used Tobacco 07/07/23 13:17 e-Cigarette/Vaping Use Never Used 07/07/23 13:17 Thrive Assessment: Date of Thrive Assessment Date Thrive assessed 08/02/22 07/07/23 13:17 Const General: alert; No acute distress Eyes Conjunctivae: conjunctivae normal Resp Auscultation: clear to auscultation bilaterally Cardio Rate: regular rate Rhythm: regular rhythm GI Inspection: Yes normal to inspection Extrem General: Yes normal to inspection and No edema Assessment and Plan Assessment & Plan (1) Recurrent falls: Code(s): R29.6 - Repeated falls Plan: Patient was seen by Neurology as well as blood work done MRI was requested and done with no significant abnormality. (2) Autism: Comment: Continue to follow-up with psychiatry Code(s): F84.0 - Autistic disorder Plan: Continue to follow-up with psychiatry (3) Seizure: Code(s): R56.9 - Unspecified convulsions Plan: Continue with present medication (4) LFT elevation: Code(s): R79.89 - Other specified abnormal findings of blood chemistry (5) Hypernatremia: Code(s): E87.0 - Hyperosmolality and hypernatremia Orders: Orders Complete Blood Count Auto Diff Today E87.0 - Hyperosmolality and hypernatremia Magnesium Today E87.0 - Hyperosmolality and hypernatremia Comprehensive Met. Panel Today E87.0 - Hyperosmolality and hypernatremia Thyroid Stimulating Hormone Today E87.0 - Hyperosmolality and hypernatremia Free T4 (Free Thyroxine) Today E87.0 - Hyperosmolality and hypernatremia Coding Level of Care Code Est Pt Level 4 (41658) Diagnoses Recurrent falls R29.6 Autism F84.0 Seizure R56.9 LFT elevation R79.89 Hypernatremia E87.0
== END 2023-07-07 15:05 | disposition home or self-care (01) ==
PROVIDERS: PCP Internal Medicine; Visit Provider Internal Medicine
DX: R29.6 Repeated falls (principal); F84.0 Autistic disorder; R56.9 Unspecified convulsions; R79.89 Other specified abnormal findings of blood chemistry; E87.0 Hyperosmolality and hypernatremia
CPT/HCPCS: 99214

== ENCOUNTER 2023-07-21 13:15 | Outpatient (AMB) | payer OTHER, SELFPAY ==
[2023-07-21 13:19] VITALS: BP 128/70; PULSE 81; O2SAT 98; BMI 25.1
--- NOTE | 2023-07-21 13:19 | A.OFFPC_ITS ---
Vital Signs 3 07/21/23 13:19 Height 5 ft 10 in Weight 175 lb BMI 25.1 BP 128/70 Blood Pressure Location Lt brachial Position Sitting Pulse 81 Pulse Source Pulse Oximeter Pulse Oximetry (%) 98 Oxygen Delivery Method Room Air Intake Visit Reasons: vertigo Allergies Naldecon Senior EX Allergy (Unknown, Verified 07/21/23 13:19) Unknown pseudoephedrine [Sudafed] Allergy (Unknown, Verified 07/21/23 13:19) Unknown triprolidine [From Actifed] Allergy (Unknown, Verified 07/21/23 13:19) Unknown Tobacco use date assessed: 07/07/23 Dental Screening Dental Screen Date: 03/29/23 HPI vertigo 2 HPI0 Details 38-year-old autistic male with a history of seizures having recurrent falls coming in for follow-up. Patient was just seen recently. Patient was recently seen in the emergency room July 11 2023 had a fall again noted bruise on the right side of the abdomen. Review of the notes patient has seen Neurology and has requested for an MRI of the brain which has been done with negative results. Patient does have a follow-up with Neurology in 08/2023 concern about vertigo and would like to have therapy done. Knee protectors advised patient did fall early this morning sustaining abrasions on both sides 1 cm desquamated lesions. [facility] Medical History (Updated 07/21/23 @ 13:46 by Luc Shelby MD) Hydrocephalus Annual physical exam Urine incontinence Vitamin D deficiency Overweight (BMI 25.0-29.9) Seizure Obsessive compulsive disorder (or obsessive compulsive neurosis) Mental and behavioral problem Surgical History No pertinent past surgical history Social History Housing: Other Alcohol intake: never Patient Tobacco Use Status: Never used Tobacco e-Cigarette/Vaping Use: Never Used Second Hand Smoke Exposure: No service: No Current occupational status: disabled Cognitive needs: Yes (mental and behavioral problem) Hearing needs: No Vision needs: No Questionnaire PHQ-9 Over the last 2 weeks, how often have you been bothered by any of the following problems? 1. Little interest or pleasure in doing things: not at all 2. Feeling down, depressed, or hopeless: not at all 3. Trouble falling or staying asleep, or sleeping too much: not at all 4. Feeling tired or having little energy: not at all 5. Poor appetite or overeating: not at all 6. Feeling bad about yourself - or that you are a failure or have let yourself or your family down: not at all 7. Trouble concentrating on things, such as reading the newspaper or watching television: not at all 8. Moving or speaking so slowly that other people could have noticed. Or the opposite - being so fidgety or restless that you have been moving around a lot more than usual: not at all 9. Thoughts that you would be better off or of hurting yourself in some way: not at all Total score: 0 Depression Screening Interpretation: Negative Depression Screening Done: Yes Source: Developed by Drs. Brijesh Reyes, Ml Woodruff, Sampson Segal and colleagues, with an educational meri from [employer]. Thrive Questionnaire Date Thrive assessed: 07/21/23 I am a: Parent/Caregiver What is your living situation today?: I have a steady place to live Within the past 12 months, did the food you bought not last and you didn't have the money to get more?: Never true Within the past 12 months, did you worry whether your food would run out before you got money to buy more?: Never true Do you have trouble paying for medicines?: No Do you have trouble getting transportation to medical appointments?: No Do you have trouble paying your heating and electricity bill?: No Do you have trouble taking care of your child, family member or friend?: No Do you have trouble with day-to-day activities such as bathing, preparing meals, shopping, managing finances, etc.?: No Are you currently unemployed and looking for a job?: No Are you interested in more education?: No Currently or been in a relationship where the following occur: no concerns reported THRIVE Score: 0 AUDIT C Alcohol Use Questionnaire (AUDIT-C) 1. How often do you have a drink containing alcohol?: Never 3. How often do you have six or more drinks on one occasion?: Never Total Score: 0 DAYANARA-7 AMB Questionnaire DAYANARA-7 Date DYAANARA - 7 assessed: 07/21/23 Feeling nervous, anxious, or on edge: 0 = Not at all Not being able to stop or control worryin = Not at all Worrying too much about different things: 0 = Not at all Trouble relaxin = Not at all Being so restless that it is hard to sit still: 0 = Not at all Becoming easily annoyed or irritable: 0 = Not at all Feeling afraid as if something awful might happen: 0 = Not at all Total DAYANARA-7 score (0-4 normal; 5-9 mild; 10-14 moderate; 15-21 severe): 0 Source: Developed by Drs. Brijesh Reyes, Ml Woodruff, Sampson Segal and colleagues, with an educational meri from [employer]. Physical exam (Primary Care) Vital Signs: Oxygen Delivery Method Room Air 07/21/23 13:19 Tobacco/Smoking Status: Tobacco use Status Tobacco use date assessed 07/07/23 07/07/23 13:17 Patient Tobacco Use Status Never used Tobacco 07/07/23 13:17 e-Cigarette/Vaping Use Never Used 07/07/23 13:17 Depression Screening Interpretation: Negative Thrive Assessment: Date of Thrive Assessment Date Thrive assessed 08/02/22 07/07/23 13:17 Currently or been in a relationship where the following occur: no concerns reported Const General: alert; No acute distress Eyes Conjunctivae: conjunctivae normal Resp Auscultation: clear to auscultation bilaterally Cardio Rate: regular rate Rhythm: regular rhythm GI Inspection: Yes normal to inspection Extrem Other: Moves all extremities General: Yes normal to inspection and No edema Elbow/forearm/wrist images: 2 1. 2 cm round desquamated area erythematous bilateral knee lesions 2. Assessment and Plan Assessment & Plan (1) Recurrent falls: Code(s): R29.6 - Repeated falls Plan: Patient has been referred to Neurology who has evaluated him and has requested for an MRI which came up as negative. Patient does have follow-up with Neurology in August. Patient is sent for physical therapy (2) Autism: Comment: Continue to follow-up with psychiatry Code(s): F84.0 - Autistic disorder Plan: Continue to follow-up with psychiatry on clonazepam Depakote fluvoxamine haloperidol. (3) Seizure: Code(s): R56.9 - Unspecified convulsions Plan: Continue with Depakote medication (4) Obsessive compulsive disorder (or obsessive compulsive neurosis): Code(s): F42.9 - Obsessive-compulsive disorder, unspecified Qualifiers: Obsessive-compulsive disorder type: mixed obsessional thoughts and acts Qualified Code(s): F42.2 - Mixed obsessional thoughts and acts Plan: Continue to follow-up with psychiatry (5) Knee abrasion: Code(s): S80.219A - Abrasion, unspecified knee, initial encounter Plan: Knee pads prescribed/recommended antibiotic ointment placed as well as Band-Aid (6) Vertigo: Code(s): R42 - Dizziness and giddiness Plan: Referral for physical therapy Orders: Orders 2 PT Evaluation and Treatment Today R29.6 - Repeated falls, R42 - Dizziness and giddiness Medications: New 2 [PROTECTIVE KNEE PADS] As directed bilateral 2 ea 0RF 1 PAIR S80.219A - Abrasion, unspecified knee, initial encounter [PROTECTIVE KNEE PADS] As directed bilateral 2 ea 0RF 1 PAIR S80.219A - Abrasion, unspecified knee, initial encounter Coding Level of Care Code Est Pt Level 4 (64806) Diagnoses Recurrent falls R29.6 Autism F84.0 Seizure R56.9 Mixed obsessional thoughts and acts F42.2 Obsessive-compulsive disorder type: mixed obsessional thoughts and acts Knee abrasion S80.219A Vertigo R42
== END 2023-07-21 14:32 | disposition home or self-care (01) ==
PROVIDERS: PCP Internal Medicine; Visit Provider Internal Medicine
DX: R29.6 Repeated falls (principal); F84.0 Autistic disorder; R56.9 Unspecified convulsions; F42.2 Mixed obsessional thoughts and acts; S80.219A Abrasion, unspecified knee, initial encounter; R42 Dizziness and giddiness
CPT/HCPCS: 99214

== ENCOUNTER 2023-08-23 09:36 | Outpatient (AMB) | payer OTHER, SELFPAY ==
--- NOTE | 2023-08-23 09:53 | A.OFFVIS_ITS ---
Vital Signs 08/23/23 09:54 Height 5 ft 10 in Weight 175 lb BMI 25.1 BP 112/70 Blood Pressure Location Rt brachial Position Sitting Respiration 16 Pulse 137 H Pulse Source Pulse Oximeter Pulse Oximetry (%) 96 Oxygen Delivery Method Room Air Intake Visit Reasons: 4m f/u - LVM w/add Intake Note: Pt presents to the office for a 4 month follow up for recurrent falls. Leasing Agent Required: No Allergies Naldecon Senior EX Allergy (Unknown, Verified 08/23/23 09:53) Unknown pseudoephedrine [Sudafed] Allergy (Unknown, Verified 08/23/23 09:53) Unknown triprolidine [From Actifed] Allergy (Unknown, Verified 08/23/23 09:53) Unknown Medication List - Last Reconciled 08/23/23 by Mackenzie Parker MD acetaminophen 650 mg (2 x 325 mg) PO Q4H PRN alprazolam (Xanax) 0.25 mg PO ONCE PRN cholecalciferol (vitamin D3) 25 mcg PO DAILY clonazepam 0.5 mg PO DAILY PRN clotrimazole 1% appl topical dextromethorphan-guaifenesin 5-100 mg/5 mL (Child Robitussin Cough-Chest DM) 10 mL PO Q4-8H PRN divalproex 500 mg PO BID divalproex mg PO BEDTIME docusate sodium 100 mg PO DAILY fluvoxamine 100 mg PO BID fluvoxamine 50 mg PO QAM haloperidol 0.5 mg PO DAILY lorazepam 1-2 tablets before the procedure. 1 day [PROTECTIVE KNEE PADS As directed bilateral] quetiapine mg PO TID HPI Comments Details: 38 y/o male patient presents for follow up visit for recurrent falls. His behavior is stable , still has TICS. His falls are more like drop attacks .It varies according to the staff - he falls when he is with certain staff and he falls a lot in the dining room - he usually sits down when he has no one can catch him ALso because of his OCD he also tends to slumps down in the same location when he goes on walks . Pt is accompanied by Detention staffs and nurse. Pt has past medical history of developmental delay, OCD and autism. He is non verbal. Pt did not have physical therapy. OT will come from community service within a month. Per Detention staffs, pt had the first fall in November 2022, and then he has been falling almost everyday. Pt had a CT of head in December in ER which did evidence consistent with mild hydrocephalus. [facility] Medical History (Updated 08/23/23 @ 11:02 by Mackenzie Parker MD) Tic disorder Hydrocephalus Annual physical exam Urine incontinence Vitamin D deficiency Overweight (BMI 25.0-29.9) Seizure Obsessive compulsive disorder (or obsessive compulsive neurosis) Mental and behavioral problem Surgical History No pertinent past surgical history Social History Housing: Other Alcohol intake: never Patient Tobacco Use Status: Never used Tobacco e-Cigarette/Vaping Use: Never Used Second Hand Smoke Exposure: No service: No Current occupational status: disabled Cognitive needs: Yes (mental and behavioral problem) Hearing needs: No Vision needs: No Physical Exam Vital Signs: Last Vital Signs Pulse 137 H 08/23/23 09:54 Resp 16 08/23/23 09:54 BP 112/70 08/23/23 09:54 Pulse Ox 96 08/23/23 09:54 Oxygen Delivery Method Room Air 08/23/23 09:54 BMI result Body Mass Index 25.1 Const General: cooperative Nutritional Appearance: overweight Neck Neck: Yes full ROM and Yes supple Neuro Other: Non verbal. Vocal TICS- teeth grinding Motor TICS - multiple TICS , tapping his foot , no perioral movements Cranial nerves: Yes Normal facial strength present, Yes Midline tongue present and Yes Ability to bilaterally rotate head present Psych Appearance: grossly normal Assessment & Plan Assessment & Plan (1) Recurrent falls: Comment: behavioral, poorly controlled TICS, OCD Code(s): R29.6 - Repeated falls Category: Medical (2) Tic disorder: Comment: poorly controlled Code(s): F95.9 - Tic disorder, unspecified Category: Medical Plan Behavior management of TICS Consider increasing halperidol to 0.5mg tid for better control of TICS Medications: Changed From divalproex PO BEDTIME R56.9 - Unspecified convulsions To divalproex 500 mg PO Q12H R56.9 - Unspecified convulsions Coding Level of Care Code Est Pt Level 4 (59092) Diagnoses Recurrent falls R29.6 Tic disorder F95.9
[2023-08-23 09:54] VITALS: BP 112/70; PULSE 137; RESP 16; O2SAT 96; BMI 25.1
== END 2023-08-23 14:20 | disposition home or self-care (01) ==
PROVIDERS: PCP Internal Medicine; Visit Provider Psychiatry & Neurology Neurology
DX: R29.6 Repeated falls (principal); F95.9 Tic disorder, unspecified
CPT/HCPCS: 99214

== ENCOUNTER → 2023-08-23 09:36 | Outpatient (BNVA) | payer OTHER, SELFPAY | PROVIDERS: PCP Internal Medicine; Visit Provider Psychiatry & Neurology Neurology | DX: R29.6 Repeated falls (principal); F95.9 Tic disorder, unspecified; F42.9 Obsessive-compulsive disorder, unspecified | CPT/HCPCS: 99212 ==

== ENCOUNTER 2023-09-01 10:00 | Outpatient (REF) | payer OTHER, SELFPAY ==
[2023-09-01 12:33] LABS: Alanine Aminotransferase 18 U/L (0-40); Albumin Level 4.6 g/dL (3.5-5.0); Alkaline Phosphatase 84 U/L (39-117); Aspartate Amino Transferase 18 U/L (5-37); Bilirubin Direct 0.1 mg/dL (0.0-0.5); Bilirubin Total 0.4 mg/dL (0.0-1.0); Total Protein 7.4 g/dL (6.5-8.0)
[2023-09-01 12:34] LABS: Valproate 79.3 mcg/mL (50.0-100.0)
== END 2023-09-01 10:01 | disposition home or self-care (01) ==
LOC: HO.LAB 10:00
PROVIDERS: PCP Internal Medicine; Visit Provider General Practice
DX: Z79.899 Other long term (current) drug therapy (principal)
CPT/HCPCS: 36415; 80076; 80164

== ENCOUNTER 2023-09-13 16:54 | Outpatient (RCR) | payer OTHER, SELFPAY ==
--- NOTE | 2023-09-15 13:28 | MHC.PT.EP ---
[facility] [place] Office [place] Office [place] [facility] [address] Mathieu Huertas [address] [phone] F: [phone] F: [phone] F: [phone] F: [phone] Physical Therapy Plan of Care Date of Evaluation: 09/13/23 Date of Surgery: Diagnosis: Repeated falls Dizziness and giddiness Assessment: Pt is a 38yo M referred to PT for repeated falls and dizziness and giddiness. Pt presents with 2 caregivers. Pt is non verbal and unable to provide history therefore caregivers are providing history. They report the pt will be walking and will suddenly drop to the ground, then be able to stand upright again. They report this happens with certain staff members and in certain parts of the home. They also report this started about ~7-8 months ago which is also when the pts Haldol was decreased (they report they are following up with the doctor regarding this). I am unable to formally assess LE strength, balance, or BPPV as pt is inconsistently following 1-step cues. I did assess his gait and witnessed 2 of these drop attacks during gait (pt did not fall, used gait belt for safety and prevented fall). Pt was ambulating with a steady gait and had no LOB, just suddenly dropped and was able to stand upright again on his own almost instantly. I also witnessed him skipping independently in the clinic at the end of the evaluation, and the staff reports he does this often. I discussed with pts caregivers thoroughly that I do not believe this is a strength or balance impairment. I did provide pts caregivers with a lower extremity seated exercise program and recommended the pt use the stationary bike at his day program to promote LE strengthening. I did also recommend the use of a transport wheel chair in the community to decrease risk of falls. I recommend he follow up with his doctor regarding medication management as his caregivers report this started soon after a medication was decreased and they report they have been following up already. I discussed with them that I will leave the pts physical therapy chart open for 30 days so if anything changes and if pt needs to be reassessed for PT they can reach out and schedule an appointment as needed. Pts caregivers verbalized understanding and reported no further questions or concerns for PT Frequency and Duration: The patient will be seen Short Term Goals: Tank Inspector Goals: Treatment Plan: Modalities to reduce pain, spasms and effusion. Manual therapy to restore motion and function. Therapeutic exercise to improve strength and flexibility. Neuromuscular re-education for posture and balance. Therapeutic activities to return to functional activities of daily living. Electronically signed by: Nancy Mario, PT, DPT Please sign and return to therapist. Thank you for your referral.
== END 2023-10-31 13:29 | disposition home or self-care (01) ==
LOC: HO.PT 16:54
PROVIDERS: PCP Internal Medicine; Visit Provider Internal Medicine
DX: R26.9 Unspecified abnormalities of gait and mobility (principal); R42 Dizziness and giddiness
CPT/HCPCS: 97163

== ENCOUNTER 2023-09-22 08:30 | Outpatient (AMB) | payer OTHER, SELFPAY ==
[2023-09-22 08:35] VITALS: BP 126/82; PULSE 122; O2SAT 94; BMI 25.0
--- NOTE | 2023-09-22 08:35 | A.OFFPC_ITS ---
Vital Signs 09/22/23 08:35 Height 5 ft 10 in Weight 174 lb BMI 25.0 BP 126/82 Blood Pressure Location Lt brachial Position Sitting Pulse 122 H Pulse Source Pulse Oximeter Pulse Oximetry (%) 94 Oxygen Delivery Method Room Air Intake Visit Reasons: see comments Allergies Naldecon Senior EX Allergy (Unknown, Verified 09/22/23 08:35) Unknown pseudoephedrine [Sudafed] Allergy (Unknown, Verified 09/22/23 08:35) Unknown triprolidine [From Actifed] Allergy (Unknown, Verified 09/22/23 08:35) Unknown Tobacco use date assessed: 07/07/23 Dental Screening Dental Screen Date: 03/29/23 HPI see comments HPI Details 38-year-old male with autism/ mental and behavioral problem/obsessive compulsiveness history of seizures having patient was last seen in 07/28/2023 and has had knee abrasions from the falls. Patient has been followed up by Psychiatry as well as has been evaluated by Neurology. Patient has also been sent for physical therapy. Patient is here for follow-up . Reviewed the notes 09/10/2023 ER visit from another fall in the bathroom straight right side of the cheek no head trauma and was able to get back up. Neurology has seen the patient in 08/23/2023 diagnosis of poorly-controlled tics OCD treatment with haloperidol t.i.d. [facility] [place] Medical History (Updated 08/26/23 @ 17:46 by Luc Shelby MD) Tic disorder Hydrocephalus Annual physical exam Urine incontinence Vitamin D deficiency Overweight (BMI 25.0-29.9) Seizure Obsessive compulsive disorder (or obsessive compulsive neurosis) Mental and behavioral problem Surgical History No pertinent past surgical history Social History Housing: Other Alcohol intake: never Patient Tobacco Use Status: Never used Tobacco e-Cigarette/Vaping Use: Never Used Second Hand Smoke Exposure: No service: No Current occupational status: disabled Cognitive needs: Yes (mental and behavioral problem) Hearing needs: No Vision needs: No Questionnaire PHQ-9 Over the last 2 weeks, how often have you been bothered by any of the following problems? 1. Little interest or pleasure in doing things: not at all 2. Feeling down, depressed, or hopeless: not at all 3. Trouble falling or staying asleep, or sleeping too much: not at all 4. Feeling tired or having little energy: not at all 5. Poor appetite or overeating: not at all 6. Feeling bad about yourself - or that you are a failure or have let yourself or your family down: not at all 7. Trouble concentrating on things, such as reading the newspaper or watching television: not at all 8. Moving or speaking so slowly that other people could have noticed. Or the opposite - being so fidgety or restless that you have been moving around a lot more than usual: not at all 9. Thoughts that you would be better off or of hurting yourself in some way: not at all Total score: 0 Depression Screening Interpretation: Negative Depression Screening Done: Yes Source: Developed by Drs. Brijesh Reyes, Ml Woodruff, Sampson Segal and colleagues, with an educational meri from [employer]. Thrive Questionnaire Date Thrive assessed: 07/21/23 AUDIT C Alcohol Use Questionnaire (AUDIT-C) 1. How often do you have a drink containing alcohol?: Never 3. How often do you have six or more drinks on one occasion?: Never Total Score: 0 DAYANARA-7 AMB Questionnaire DAYANARA-7 Date DAYANARA - 7 assessed: 07/21/23 Source: Developed by Drs. Brijesh Reyes, Ml Woodruff, Sampson Segal and colleagues, with an educational meri from [employer]. Physical exam (Primary Care) Vital Signs: Last Vital Signs Pulse 122 H 09/22/23 08:35 BP 126/82 09/22/23 08:35 Pulse Ox 94 09/22/23 08:35 Oxygen Delivery Method Room Air 09/22/23 08:35 BMI result Body Mass Index 25.0 Tobacco/Smoking Status: Tobacco use Status Tobacco use date assessed 07/07/23 09/22/23 08:40 Patient Tobacco Use Status Never used Tobacco 09/22/23 08:40 e-Cigarette/Vaping Use Never Used 09/22/23 08:40 PHQ-9: PHQ-9 Score PHQ-9: Total score 0 09/22/23 08:40 Depression Screening Interpretation: Negative Thrive Assessment: Date of Thrive Assessment Date Thrive assessed 07/21/23 09/22/23 08:40 Const General: alert; No acute distress Eyes Conjunctivae: conjunctivae normal Resp Auscultation: clear to auscultation bilaterally Cardio Rate: regular rate Rhythm: regular rhythm GI Inspection: Yes normal to inspection Extrem General: Yes normal to inspection and No edema Assessment and Plan Assessment & Plan (1) Tic disorder: Comment: poorly controlled Code(s): F95.9 - Tic disorder, unspecified Plan: Patient has been seen by Neurology and advised increase in haloperidol. Which has been done. As for cognitive behavioral therapy have ask nurse navigator for further plan on this. Discussed that will get back with them. (2) Autism: Comment: Continue to follow-up with psychiatry Code(s): F84.0 - Autistic disorder Plan: Continue to follow-up with psychiatry (3) Recurrent falls: Comment: behavioral, poorly controlled TICS, OCD Code(s): R29.6 - Repeated falls Plan: Patient has been deemed to have tics disorder and behavioral therapy is recommended (4) Obsessive compulsive disorder (or obsessive compulsive neurosis): Code(s): F42.9 - Obsessive-compulsive disorder, unspecified Qualifiers: Obsessive-compulsive disorder type: mixed obsessional thoughts and acts Qualified Code(s): F42.2 - Mixed obsessional thoughts and acts Plan: Continue follow-up with psychiatry Coding Level of Care Code Est Pt Level 4 (58074) Diagnoses Tic disorder F95.9 Autism F84.0 Recurrent falls R29.6 Mixed obsessional thoughts and acts F42.2 Obsessive-compulsive disorder type: mixed obsessional thoughts and acts
== END 2023-09-22 11:46 | disposition home or self-care (01) ==
PROVIDERS: PCP Internal Medicine; Visit Provider Internal Medicine
DX: F95.9 Tic disorder, unspecified (principal); F84.0 Autistic disorder; R29.6 Repeated falls; F42.2 Mixed obsessional thoughts and acts
CPT/HCPCS: 99214

== ENCOUNTER 2023-09-27 14:15 | Outpatient (AMB) | payer OTHER, SELFPAY ==
[2023-09-27 14:18] VITALS: BP 136/80; PULSE 86; O2SAT 97; BMI 25.0
--- NOTE | 2023-09-27 14:18 | MHC.PC.OV ---
Vital Signs 09/27/23 14:18 Height 5 ft 10 in Weight 174 lb 4 oz BMI 25.0 BP 136/80 Blood Pressure Location Lt brachial Position Sitting Pulse 86 Pulse Source Pulse Oximeter Pulse Oximetry (%) 97 Oxygen Delivery Method Room Air Intake Visit Reasons: 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 [place] 09/24 fell/stitches on head HPI Details 38-year-old male with autism obsessive-compulsive disorder having having a tic of falling last seen in [id number]. Review of the notes ER visit for head injury witnessed trip and falling no loss of consciousness sustained a scalp injury. Return to ER in September [address] scan done of the brain showing no acute abnormality of the head and cervical spine patient had suture done 5 PFSH Medical History (Updated 09/27/23 @ 14:48 by Luc Shelby MD) Tic disorder Hydrocephalus Annual physical exam Urine incontinence Vitamin D deficiency Overweight (BMI 25.0-29.9) Seizure Obsessive compulsive disorder (or obsessive compulsive neurosis) Mental and behavioral problem Surgical History No pertinent past surgical history Social History Housing: Other Alcohol intake: never Patient Tobacco Use Status: Never used Tobacco e-Cigarette/Vaping Use: Never Used Second Hand Smoke Exposure: No service: No Current occupational status: disabled Cognitive needs: Yes (mental and behavioral problem) Hearing needs: No Vision needs: No Questionnaire PHQ-9 Over the last 2 weeks, how often have you been bothered by any of the following problems? 1. Little interest or pleasure in doing things: not at all 2. Feeling down, depressed, or hopeless: not at all 3. Trouble falling or staying asleep, or sleeping too much: not at all 4. Feeling tired or having little energy: not at all 5. Poor appetite or overeating: not at all 6. Feeling bad about yourself - or that you are a failure or have let yourself or your family down: not at all 7. Trouble concentrating on things, such as reading the newspaper or watching television: not at all 8. Moving or speaking so slowly that other people could have noticed. Or the opposite - being so fidgety or restless that you have been moving around a lot more than usual: not at all 9. Thoughts that you would be better off or of hurting yourself in some way: not at all Total score: 0 Depression Screening Interpretation: Negative Depression Screening Done: Yes Source: Developed by Drs. Brijesh Reyes, Ml Woodruff, Sampson Segal and colleagues, with an educational meri from [employer]. Thrive Questionnaire Date Thrive assessed: 09/27/23 I am a: Patient What is your living situation today?: I have a steady place to live Within the past 12 months, did the food you bought not last and you didn't have the money to get more?: Never true Within the past 12 months, did you worry whether your food would run out before you got money to buy more?: Never true Do you have trouble paying for medicines?: No Do you have trouble getting transportation to medical appointments?: No Do you have trouble paying your heating and electricity bill?: No Do you have trouble taking care of your child, family member or friend?: No Do you have trouble with day-to-day activities such as bathing, preparing meals, shopping, managing finances, etc.?: No Are you currently unemployed and looking for a job?: No Are you interested in more education?: No Please select the resources that you would like help with: None Currently or been in a relationship where the following occur: No concerns reported THRIVE Score: 0 AUDIT C Alcohol Use Questionnaire (AUDIT-C) 1. How often do you have a drink containing alcohol?: Never 3. How often do you have six or more drinks on one occasion?: Never Total Score: 0 DAYANARA-7 AMB Questionnaire DAYANARA-7 Date DAYANARA - 7 assessed: 09/27/23 Feeling nervous, anxious, or on edge: 0 = Not at all Not being able to stop or control worryin = Not at all Worrying too much about different things: 0 = Not at all Trouble relaxin = Not at all Being so restless that it is hard to sit still: 0 = Not at all Becoming easily annoyed or irritable: 0 = Not at all Feeling afraid as if something awful might happen: 0 = Not at all Total DAYANARA-7 score (0-4 normal; 5-9 mild; 10-14 moderate; 15-21 severe): 0 Source: Developed by Drs. Brijesh Reyes, Ml Woodruff, Sampson Segal and colleagues, with an educational meri from [employer]. Physical exam (Primary Care) Vital Signs: Last Vital Signs Pulse 86 09/27/23 14:18 BP 136/80 09/27/23 14:18 Pulse Ox 97 09/27/23 14:18 Oxygen Delivery Method Room Air 09/27/23 14:18 BMI result Body Mass Index 25.0 Tobacco/Smoking Status: Tobacco use Status Tobacco use date assessed 09/27/23 09/27/23 14:32 Patient Tobacco Use Status Never used Tobacco 09/27/23 14:18 e-Cigarette/Vaping Use Never Used 09/27/23 14:18 PHQ-9: PHQ-9 Score PHQ-9: Total score 0 09/27/23 14:48 Depression Screening Interpretation: Negative Thrive Assessment: Date of Thrive Assessment Date Thrive assessed 09/27/23 09/27/23 14:32 Currently or been in a relationship where the following occur: No concerns reported Assessment and Plan Assessment & Plan (1) Tic disorder: Comment: poorly controlled Code(s): F95.9 - Tic disorder, unspecified Plan: will inquire about CBT (2) Laceration of head: Code(s): S01.91XA - Laceration without foreign body of unspecified part of head, initial encounter Plan: suture placed 09/25/2023 due to take up in5 days Coding Level of Care Code Est Pt Level 3 (96274) Diagnoses Tic disorder F95.9 Laceration of head S01.91XA
== END 2023-09-27 16:09 | disposition home or self-care (01) ==
PROVIDERS: PCP Internal Medicine; Visit Provider Internal Medicine
DX: F95.9 Tic disorder, unspecified (principal); S01.91XA Laceration without foreign body of unspecified part of head, initial encounter
CPT/HCPCS: 99213

== ENCOUNTER 2023-10-14 09:03 | Outpatient (AMB) | payer OTHER, SELFPAY ==
[2023-10-14 09:07] VITALS: BP 132/78; PULSE 126; O2SAT 97; BMI 25.0
--- NOTE | 2023-10-14 09:07 | MHC.PC.OV ---
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 Shelby coming in for follow up on acute problem. Patient presents today with representatives who states he had a black eye has showed up the last week they are unsure of how he got it. They also mentioned he has lip swelling and they believe he may have bit his lip as well. He has recently started within a behavior while he dropped to the ground and started crawling for a few minutes and then will get up and begin walking like normal. This began about 3 weeks ago. He was previously seen by psych who increase his Haldol and they are due to see him again in 2 weeks. Patient does not communicate pain well. [facility] Medical History (Updated 10/14/23 @ 09:24 by Yandy Lafleur PA-C) Tic disorder Hydrocephalus Annual physical exam Urine incontinence Vitamin D deficiency Overweight (BMI 25.0-29.9) Seizure Obsessive compulsive disorder (or obsessive compulsive neurosis) Mental and behavioral problem Surgical History No pertinent past surgical history Social History Housing: Other Alcohol intake: never Patient Tobacco Use Status: Never used Tobacco e-Cigarette/Vaping Use: Never Used Second Hand Smoke Exposure: No service: No Current occupational status: disabled Cognitive needs: Yes (mental and behavioral problem) Hearing needs: No Vision needs: No Questionnaire Thrive Questionnaire Date Thrive assessed: 09/27/23 I am a: Patient What is your living situation today?: I have a steady place to live Within the past 12 months, did the food you bought not last and you didn't have the money to get more?: Never true Within the past 12 months, did you worry whether your food would run out before you got money to buy more?: Never true Do you have trouble paying for medicines?: No Do you have trouble getting transportation to medical appointments?: No Do you have trouble paying your heating and electricity bill?: No Do you have trouble taking care of your child, family member or friend?: No Do you have trouble with day-to-day activities such as bathing, preparing meals, shopping, managing finances, etc.?: No Are you currently unemployed and looking for a job?: No Are you interested in more education?: No Please select the resources that you would like help with: None Currently or been in a relationship where the following occur: No concerns reported THRIVE Score: 0 AUDIT C Alcohol Use Questionnaire (AUDIT-C) 1. How often do you have a drink containing alcohol?: Never 3. How often do you have six or more drinks on one occasion?: Never Total Score: 0 DAYANARA-7 AMB Questionnaire DAYANARA-7 Date DAYANARA - 7 assessed: 09/27/23 Source: Developed by Drs. Brijesh Reyes, Ml Woodruff, Sampson Segal and colleagues, with an educational meri from [employer] Review of Systems Const Denies fever(s), Reports frequent falls and Denies poor appetite Eyes Details: Bruising around the left eye ENT Reports no additional complaints Card Reports no additional complaints Resp Denies cough GI Reports no additional complaints Reports no additional complaints Musc Reports no additional complaints Skin/Breast Reports system reviewed and no additional complaints, except as documented Neuro Reports behavioral changes and Reports frequent falls Psych Details: Worsening anxiety Reports behavioral changes Physical exam (Primary Care) Vital Signs: Last Vital Signs Pulse 126 H 10/14/23 09:07 BP 132/78 10/14/23 09:07 Pulse Ox 97 10/14/23 09:07 Oxygen Delivery Method Room Air 10/14/23 09:07 BMI result Body Mass Index 25.0 Tobacco/Smoking Status: Tobacco use Status Tobacco use date assessed 09/27/23 10/14/23 09:12 Patient Tobacco Use Status Never used Tobacco 10/14/23 09:12 e-Cigarette/Vaping Use Never Used 10/14/23 09:12 Thrive Assessment: Date of Thrive Assessment Date Thrive assessed 09/27/23 10/14/23 09:12 Currently or been in a relationship where the following occur: No concerns reported Const General: cooperative, healthy appearing, comfortable and no acute distress HENMT Head: Yes normocephalic Ears: hearing grossly normal bilaterally General nose exam: Normal external nose present Eyes Other: Bruising around the left orbit in different stages of healing Conjunctivae: conjunctivae normal Neck Neck: Yes full ROM and Yes no lymphadenopathy Resp Effort & Inspection: normal respiratory effort Cardio Rate: regular rate Rhythm: regular rhythm Skin General skin exam: no rashes or lesions noted Neuro Gait exam (Neuro): Normal gait present Extrem General: Yes normal to inspection and Yes full ROM Psych Affect: normal affect Attitude: cooperative Assessment and Plan Assessment & Plan (1) Black eye of left side: Code(s): S00.12XA - Contusion of left eyelid and periocular area, initial encounter Plan: We will order for x-ray of the orbits to evaluate for acute fracture. No evidence on exam of fracture. No changes in the eye itself. Advised them to monitor for symptoms of lid lag, cornea changes, or redness of the eye. (2) Recurrent falls: Comment: behavioral, poorly controlled TICS, OCD Code(s): R29.6 - Repeated falls Plan: Recently seen by psych who increase Haldol and due to follow up in 2 weeks. Continue to follow with psychiatry as falls and new crawling behavior appear to be stemming from a behavioral problem. Plan This note was constructed using voice recognition software. While every effort has been made to ensure accuracy and medical billing associate, still areas may have been included sometimes these areas may affect the content or meeting of the given symptoms. Total time spent caring for the patient today was 20 minutes. This includes time spent before the visit reviewing the chart, time spent during the visit, and time spent after the visit and documentation. Orders: Orders XR orbit min 4V Today S00.12XA - Contusion of left eyelid and periocular area, initial encounter Coding Level of Care Code Est Pt Level 3 (20270) Diagnoses Black eye of left side S00.12XA Recurrent falls R29.6
== END 2023-10-14 09:36 | disposition home or self-care (01) ==
PROVIDERS: PCP Internal Medicine
DX: S00.12XA Contusion of left eyelid and periocular area, initial encounter (principal); R29.6 Repeated falls
CPT/HCPCS: 99213

== ENCOUNTER 2023-10-17 16:51 | Outpatient (REF) | payer OTHER, SELFPAY ==
--- NOTE | ~2023-10-17 | XR_ITS ---
EXAMINATION: XR ORBITS CLINICAL INFORMATION: Contusion orbital area COMPARISON: X-ray of the orbits October 2016. CT scan of the head December 2022 TECHNIQUE: 6 views of the orbits obtained. FINDINGS: There is no fracture. No bone, joint or soft tissue abnormality is demonstrated. Sinus is clear XR/XR orbit min 4V IMPRESSION: Unremarkable examination. Electronically signed by: Chu Anderson MD 11/02/2023 07:10 AM EDT RP
== END 2023-10-17 16:52 | disposition home or self-care (01) ==
LOC: HO.XRAY 16:51
PROVIDERS: PCP Internal Medicine
DX: S00.12XA Contusion of left eyelid and periocular area, initial encounter (principal)
CPT/HCPCS: 70200

== ENCOUNTER 2023-11-02 09:00 | Outpatient (AMB) | payer OTHER, SELFPAY ==
--- NOTE | 2023-11-02 09:02 | MHC.OFFVIS ---
Vital Signs 11/02/23 09:03 Height 5 ft 10 in Weight 174 lb BMI 25.0 BP 122/78 Blood Pressure Location Rt brachial Position Sitting Respiration 17 Pulse 131 H Pulse Source Pulse Oximeter Pulse Oximetry (%) 97 Oxygen Delivery Method Room Air Intake Visit Reasons: Follow up Intake Note: Pt presents to the office for a 2 month follow up for recurrent falls. 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: No Allergies Naldecon Senior EX Allergy (Unknown, Verified 11/02/23 09:03) Unknown pseudoephedrine [Sudafed] Allergy (Unknown, Verified 11/02/23 09:03) Unknown triprolidine [From Actifed] Allergy (Unknown, Verified 11/02/23 09:03) Unknown Medication List - Last Reconciled 11/02/23 by Mackenzie Parker MD acetaminophen 650 mg (2 x 325 mg) PO Q4H PRN cholecalciferol (vitamin D3) 25 mcg PO DAILY clonazepam (Klonopin) 0.5 mg PO BEDTIME clotrimazole 1% appl topical dextromethorphan-guaifenesin 5-100 mg/5 mL (Child Robitussin Cough-Chest DM) 10 mL PO Q4-8H PRN divalproex 1 tab qam and 2 tabs qhs orally 2 times a day; docusate sodium 100 mg PO DAILY fluvoxamine 100 mg PO BID fluvoxamine 50 mg PO QAM haloperidol mg PO haloperidol 0.5 mg PO TID [HELMET As directed] lorazepam 1-2 tablets before the procedure. 1 day [PROTECTIVE KNEE PADS As directed bilateral] quetiapine mg PO TID HPI Comments Details: 38 y/o male patient presents for follow up visit for recurrent falls. No change in TICS or falls.Psychiatry increased his haloperidol to 0.5mg tid. His falls are more like drop attacks .It varies according to the staff - he falls when he is with certain staff and he falls a lot in the dining room - he usually sits down when he has no one can catch him ALso because of his OCD he also tends to slumps down in the same location when he goes on walks . Pt is accompanied by Assisted staffs and nurse. Pt has past medical history of developmental delay, OCD and autism. He is non verbal. Pt did not have physical therapy. OT will come from community service within a month. Per Assisted staffs, pt had the first fall in November 2022, and then he has been falling almost everyday. Pt had a CT of head in December in ER which did evidence consistent with mild hydrocephalus. [facility] Medical History Tic disorder Hydrocephalus Annual physical exam Urine incontinence Vitamin D deficiency Overweight (BMI 25.0-29.9) Seizure Obsessive compulsive disorder (or obsessive compulsive neurosis) Mental and behavioral problem Surgical History No pertinent past surgical history Social History Housing: Other Alcohol intake: never Patient Tobacco Use Status: Never used Tobacco e-Cigarette/Vaping Use: Never Used Second Hand Smoke Exposure: No service: No Current occupational status: disabled Cognitive needs: Yes (mental and behavioral problem) Hearing needs: No Vision needs: No Physical Exam Vital Signs: Last Vital Signs Pulse 131 H 11/02/23 09:03 Resp 17 11/02/23 09:03 BP 122/78 11/02/23 09:03 Pulse Ox 97 11/02/23 09:03 Oxygen Delivery Method Room Air 11/02/23 09:03 BMI result Body Mass Index 25.0 Const General: cooperative Nutritional Appearance: overweight Neck Neck: Yes full ROM and Yes supple Neuro Other: Non verbal. Vocal TICS- teeth grinding Motor TICS - multiple TICS , tapping his foot , no perioral movements Cranial nerves: Yes Normal facial strength present, Yes Midline tongue present and Yes Ability to bilaterally rotate head present Psych Appearance: grossly normal Assessment & Plan Assessment & Plan (1) Recurrent falls: Comment: behavioral, poorly controlled TICS, OCD Code(s): R29.6 - Repeated falls Category: Medical (2) Tic disorder: Comment: poorly controlled Code(s): F95.9 - Tic disorder, unspecified Category: Medical Plan Behavior management of TICS Haloperidol to 0.5mg tid for better control of TICS Increase depakote 500mg qam and 1000mg qhs Medications: Changed From divalproex 500 mg PO BID To divalproex 1 tab qam and 2 tabs qhs orally 2 times a day; 90 tabs 3RF Coding Level of Care Code Est Pt Level 4 (99377) Diagnoses Recurrent falls R29.6 Tic disorder F95.9
[2023-11-02 09:03] VITALS: BP 122/78; PULSE 131; RESP 17; O2SAT 97; BMI 25.0
== END 2023-11-02 09:22 | disposition home or self-care (01) ==
PROVIDERS: PCP Internal Medicine; Visit Provider Psychiatry & Neurology Neurology
DX: R29.6 Repeated falls (principal); F95.9 Tic disorder, unspecified
CPT/HCPCS: 99214

== ENCOUNTER → 2023-11-02 09:00 | Outpatient (BNVA) | payer OTHER, SELFPAY | PROVIDERS: PCP Internal Medicine; Visit Provider Psychiatry & Neurology Neurology | DX: R29.6 Repeated falls (principal); F95.9 Tic disorder, unspecified | CPT/HCPCS: 99212 ==

== ENCOUNTER 2023-11-03 13:34 | Outpatient (AMB) | payer OTHER, SELFPAY ==
[2023-11-03 13:38] VITALS: BP 130/82; BMI 24.7
--- NOTE | 2023-11-03 13:38 | A.OFFPC_ITS ---
Vital Signs 11/03/23 13:38 Height 5 ft 10 in Weight 172 lb BMI 24.7 BP 130/82 Blood Pressure Location Rt brachial Position Sitting Intake Visit Reasons: f/u after a fall Ship Pilot Dispatcher Required: No Accompanied by: Staff Allergies Naldeian Senior EX Allergy (Unknown, Verified 11/03/23 13:41) Unknown pseudoephedrine [Sudafed] Allergy (Unknown, Verified 11/03/23 13:41) Unknown triprolidine [From Actifed] Allergy (Unknown, Verified 11/03/23 13:41) Unknown Tobacco use date assessed: 09/27/23 Dental Screening Dental Screen Date: 09/27/23 HPI f/u after a fall HPI Details 38-year-old male with a mental and behav ioral problem obsessive compu lsiveness and autism history of seizures coming in for follow-up. Patient has been having recurrent falls diagnosed as tic disorder from a referral with Neurology coming in for follow-up. Last seen in October 13 having had a fall recently with left periorbital hematoma(x-ray reveals unremarkable) . Psychiatrist as increase the Haldol already. Patient was advised to have behavior management of takes have advised increase Depakote to 500 mg in am and 1000 mg q.h.s. [facility] Medical History Tic disorder Hydrocephalus Annual physical exam Urine incontinence Vitamin D deficiency Overweight (BMI 25.0-29.9) Seizure Obsessive compulsive disorder (or obsessive compulsive neurosis) Mental and behavioral problem Surgical History No pertinent past surgical history Social History Housing: Other Alcohol intake: never Patient Tobacco Use Status: Never used Tobacco e-Cigarette/Vaping Use: Never Used Second Hand Smoke Exposure: No service: No Current occupational status: disabled Cognitive needs: Yes (mental and behavioral problem) Hearing needs: No Vision needs: No Questionnaire Thrive Questionnaire Date Thrive assessed: 09/27/23 Are you currently unemployed and looking for a job?: I choose not to answer this question DAYANARA-7 AMB Questionnaire DAYANARA-7 Date DAYANARA - 7 assessed: 09/27/23 Source: Developed by Drs. Brijesh ReyesMl Kurt Kroenke and colleagues, with an educational meri from [employer]. Physical exam (Primary Care) Vital Signs: Last Vital Signs BP 130/82 11/03/23 13:38 BMI result Body Mass Index 24.7 Tobacco/Smoking Status: Tobacco use Status Tobacco use date assessed 09/27/23 11/03/23 13:44 Patient Tobacco Use Status Never used Tobacco 11/03/23 13:44 e-Cigarette/Vaping Use Never Used 11/03/23 13:44 Thrive Assessment: Date of Thrive Assessment Date Thrive assessed 09/27/23 11/03/23 13:44 Const General: alert; No acute distress Eyes Conjunctivae: conjunctivae normal Resp Auscultation: clear to auscultation bilaterally Cardio Rate: regular rate Rhythm: regular rhythm GI Inspection: Yes normal to inspection Extrem General: Yes normal to inspection and No edema Assessment and Plan Assessment & Plan (1) Black eye of left side: Code(s): S00.12XA - Contusion of left eyelid and periocular area, initial encounter Plan: X-ray of the orbits are negative (2) Tic disorder: Comment: poorly controlled Code(s): F95.9 - Tic disorder, unspecified Plan: Patient has been treated with Haldol and has increase Depakote level. (3) Autism: Comment: Continue to follow-up with psychiatry Code(s): F84.0 - Autistic disorder Plan: Continue to follow-up with psychiatry (4) Recurrent falls: Comment: behavioral, poorly controlled TICS, OCD Code(s): R29.6 - Repeated falls Plan: Has been advised to have occupational therapy as well as behavior therapy (5) Seizure: Code(s): R56.9 - Unspecified convulsions Plan: Continue with present medication Orders: Orders Valproate Today R56.9 - Unspecified convulsions Erythrocyte Sedimentation Rate Today R56.9 - Unspecified convulsions Thyroid Stimulating Hormone Today R56.9 - Unspecified convulsions Free T4 (Free Thyroxine) Today R56.9 - Unspecified convulsions Vitamin B12 and Folate Today R56.9 - Unspecified convulsions UA w Microscopic Today R56.9 - Unspecified convulsions Ferritin Today R56.9 - Unspecified convulsions Complete Blood Count Auto Diff Today R56.9 - Unspecified convulsions Comprehensive Met. Panel Today R56.9 - Unspecified convulsions C Reactive Protein Today R56.9 - Unspecified convulsions Coding Level of Care Code Est Pt Level 4 (65261) Diagnoses Black eye of left side S00.12XA Tic disorder F95.9 Autism F84.0 Recurrent falls R29.6 Seizure R56.9
== END 2023-11-03 16:03 | disposition home or self-care (01) ==
PROVIDERS: PCP Internal Medicine; Visit Provider Internal Medicine
DX: S00.12XA Contusion of left eyelid and periocular area, initial encounter (principal); R56.9 Unspecified convulsions; F95.9 Tic disorder, unspecified; F84.0 Autistic disorder; R29.6 Repeated falls

== ENCOUNTER → 2023-11-03 13:34 | Outpatient (BNVA) | payer OTHER, SELFPAY | PROVIDERS: PCP Internal Medicine; Visit Provider Internal Medicine | DX: S00.12XA Contusion of left eyelid and periocular area, initial encounter (principal); F95.9 Tic disorder, unspecified; F84.0 Autistic disorder; R29.6 Repeated falls; R56.9 Unspecified convulsions | CPT/HCPCS: 99212 ==

== ENCOUNTER 2023-11-17 08:00 | Outpatient (REF) | payer OTHER, SELFPAY ==
[2023-11-17 09:06] LABS: Hematocrit 41.1 % (42.0-52.0); Hemoglobin 13.1 g/dl (14.0-18.0); Mean Corpuscular HGB Conc 31.9 g/dl (31.0-36.0); Mean Corpuscular Hemoglobin 28.1 pg (27.0-33.0); Mean Platelet Volume 10.2 fL (9.4-12.4); Platelet Count 218 X10*3/uL (160-400); Red Blood Count 4.67 X10*6/uL (4.60-5.80); Red Cell Distribution Width 14.1 % (11.0-16.0); White Blood Count 9.2 X10*3/uL (4.8-10.8)
[2023-11-17 09:52] LABS: Alanine Aminotransferase 184 U/L (0-40); Albumin Level 3.7 g/dL (3.5-5.0); Alkaline Phosphatase 451 U/L (39-117); Anion Gap 11 (12-20); Aspartate Amino Transferase 97 U/L (5-37); Bilirubin Total 0.4 mg/dL (0.0-1.0); Blood Urea Nitrogen 13 mg/dL (9-16); C Reactive Protein 0.62 mg/dL (< or = 0.50); Calcium 9.4 mg/dL (8.4-10.2); Carbon Dioxide 31 mmol/L (22-29); Chloride 106 mmol/L (96-108); Estimated Glomerular Filt Rate > 60; Glucose Random 99 mg/dL (60-115); Magnesium 2.1 mg/dL (1.6-2.6); Potassium 4.7 mmol/L (3.3-5.1); Sodium 143 mmol/L (135-145); Total Protein 7.4 g/dL (6.5-8.0)
[2023-11-17 09:58] LABS: Ferritin 864 ng/mL (20-250); Free T4 (Free Thyroxine) 0.94 ng/dL (0.71-1.85); Thyroid Stimulating Hormone 1.52 uIU/mL (0.32-4.0)
[2023-11-17 10:05] LABS: Erythrocyte Sedimentation Rate 6 MM/HR (0-15)
[2023-11-17 10:14] LABS: Folate 13.8 ng/mL (> or = 4.0); Vitamin B12 806 pg/mL (200-900)
[2023-11-17 10:58] LABS: Appearance Urine Clear; Color Urine Dark Yellow; Glucose Urine UA Negative (Negative); Leukocyte Esterase Urine Trace (Negative); Nitrite Urine Negative (Negative); PH 6.5 (5.0-9.0); UMIC TRIGGER UA YES; Urine Blood Negative (Negative); Urine Ketones Negative (Negative); Urine Protein Negative (Neg-Trace)
[2023-11-17 11:04] LABS: Bacteria Urine None Seen (None Seen); Hyaline Casts Urine 0-2 /LPF (0-2); RBC Urine 0-2 /HPF (0-2); Squamous Epithelial Cell Urine 0-2 /HPF (0-2); WBC Urine 0-5 /HPF (0-5)
[2023-11-17 11:17] LABS: Atypical Lymph Absolute Manual 2.4 x10*3/uL; Atypical Lymphs Percent Manual 26 % (0-6); Band Neutrophils Percent 2 % (3-5); Lymphocytes Absolute Manual 5.7 X10*3/uL (1.2-4.9); Lymphocytes Percent Manual 62 % (20-40); Metamyelocytes Absolute 0.1 X10*3/uL; Metamyelocytes Percent 1 %; Monocytes Absolute Manual 0.1 X10*3/uL (0.1-1.2); Monocytes Percent Manual 1 % (2-11); Neutrophils Absolute Manual 0.9 X10*3/uL (2.0-8.3); Neutrophils Percent Manual 8 % (45-73)
[2023-11-17 11:19] LABS: Platelet Estimate NORMAL (NORMAL); Platelet Morphology Comment NORMAL; RBC Morphology NORMAL
[2023-11-17 11:29] LABS: Valproate 81.6 mcg/mL (50.0-100.0)
== END 2023-11-17 08:01 | disposition home or self-care (01) ==
LOC: HO.LAB 08:00
PROVIDERS: PCP Internal Medicine; Referring Provider Internal Medicine
DX: E87.0 Hyperosmolality and hypernatremia (principal); R56.9 Unspecified convulsions; F84.0 Autistic disorder; R29.6 Repeated falls; F42.2 Mixed obsessional thoughts and acts
CPT/HCPCS: 36415; 80053; 80164; 81001; 82607; 82728; 82746; 83735; 84439; 84443; 85007; 85025; 85027; 85652; 86140; 99212

== ENCOUNTER 2023-11-17 08:00 | Outpatient (AMB) | payer OTHER, SELFPAY ==
--- NOTE | 2023-11-17 08:06 | A.OFFPC_ITS ---
Vital Signs 11/17/23 08:07 Height 5 ft 10 in Weight 178 lb BMI 25.5 BP 132/80 Blood Pressure Location Lt brachial Position Sitting Pulse 104 H Pulse Source Pulse Oximeter Pulse Oximetry (%) 97 Oxygen Delivery Method Room Air Intake Visit Reasons: [facility] 11/13 fell and hit head Allergies Naldecon Senior EX Allergy (Unknown, Verified 11/17/23 08:09) Unknown pseudoephedrine [Sudafed] Allergy (Unknown, Verified 11/17/23 08:09) Unknown triprolidine [From Actifed] Allergy (Unknown, Verified 11/17/23 08:09) Unknown Medication List - Last Reconciled 11/17/23 by Yandy Lafleur PA-C acetaminophen 650 mg (2 x 325 mg) PO Q4H PRN cholecalciferol (vitamin D3) 25 mcg PO DAILY clonazepam (Klonopin) 0.5 mg PO BEDTIME clotrimazole 1% appl topical dextromethorphan-guaifenesin 5-100 mg/5 mL (Child Robitussin Cough-Chest DM) 10 mL PO Q4-8H PRN divalproex 1 tab qam and 2 tabs qhs orally 2 times a day; docusate sodium 100 mg PO DAILY fluvoxamine 100 mg PO BID fluvoxamine 50 mg PO QAM haloperidol mg PO haloperidol 0.5 mg PO TID [HELMET As directed] lorazepam 1-2 tablets before the procedure. 1 day [PROTECTIVE KNEE PADS As directed bilateral] quetiapine mg PO TID Tobacco use date assessed: 09/27/23 Dental Screening Dental Screen Date: 09/27/[address] [facility] 11/13 fell and hit head HPI Details 38-year-old male with a mental and behav ioral problem obsessive compulsiveness and autism history of seizures coming in for hospital follow-up. In review of the notes, patient was seen in [facility] ER after a fall into a wall.? No imaging was recommended and patient was discharged home. Patient presents today with his caregivers. She tells us he has been to the ER twice in the last week 11/10/2023 and 11/14/2023 and also visited urgent Care on 11/11/2023. They have been working with Neurology and Psychiatry for medication adjustments. He is scheduled for a [facility] and January and they are requesting evaluation from [facility] autism and neurodevelopmental disorder clinic. [facility] Medical History Tic disorder Hydrocephalus Annual physical exam Urine incontinence Vitamin D deficiency Overweight (BMI 25.0-29.9) Seizure Obsessive compulsive disorder (or obsessive compulsive neurosis) Mental and behavioral problem Surgical History No pertinent past surgical history Social History Housing: Other Alcohol intake: never Patient Tobacco Use Status: Never used Tobacco e-Cigarette/Vaping Use: Never Used Second Hand Smoke Exposure: No service: No Current occupational status: disabled Cognitive needs: Yes (mental and behavioral problem) Hearing needs: No Vision needs: No Questionnaire Thrive Questionnaire Date Thrive assessed: 09/27/23 Are you currently unemployed and looking for a job?: I choose not to answer this question AUDIT C Alcohol Use Questionnaire (AUDIT-C) 1. How often do you have a drink containing alcohol?: Never 3. How often do you have six or more drinks on one occasion?: Never Total Score: 0 DAYANARA-7 AMB Questionnaire DAYANARA-7 Date DAYANARA - 7 assessed: 09/27/23 Source: Developed by Drs. Brijesh Reyes, Ml Woodruff, Sampson Segal and colleagues, with an educational meri from [employer]. Review of Systems Const Details: Unobtainable as patient is nonverbal Physical exam (Primary Care) Vital Signs: Last Vital Signs Pulse 104 H 11/17/23 08:07 BP 132/80 11/17/23 08:07 Pulse Ox 97 11/17/23 08:07 Oxygen Delivery Method Room Air 11/17/23 08:07 BMI result Body Mass Index 25.5 Tobacco/Smoking Status: Tobacco use Status Tobacco use date assessed 09/27/23 11/17/23 08:10 Patient Tobacco Use Status Never used Tobacco 11/17/23 08:10 e-Cigarette/Vaping Use Never Used 11/17/23 08:10 Thrive Assessment: Date of Thrive Assessment Date Thrive assessed 09/27/23 11/17/23 08:10 Const General: cooperative, healthy appearing, comfortable and no acute distress Orientation/consciousness: patient oriented x3 HENMT Other: Small well-healing abrasions on the forehead and right side temporal area without evidence of infection Head: Yes normocephalic Ears: hearing grossly normal bilaterally General nose exam: Normal external nose present Eyes General: appearance normal, both eyes and all related structures Conjunctivae: conjunctivae normal Neck Neck: Yes full ROM and Yes no lymphadenopathy Resp Effort & Inspection: normal respiratory effort Auscultation: clear to auscultation bilaterally, no crackles, no rales, no rhonchi and no wheezes Cardio Rate: regular rate Rhythm: regular rhythm Skin General skin exam: no rashes or lesions noted Neuro General: patient oriented x3 Gait exam (Neuro): Normal gait present Extrem General: Yes normal to inspection, Yes full ROM and No edema Psych Affect: normal affect Attitude: cooperative Insight: Good insight present (Psych) Judgement: Good judgement present (Psych) Coding Level of Care Code Est Pt Level 3 (88903) Diagnoses Autism F84.0 Recurrent falls R29.6 Seizure R56.9 Mixed obsessional thoughts and acts F42.2 Obsessive-compulsive disorder type: mixed obsessional thoughts and acts Assessment & Plan Assessment & Plan (1) Autism: Comment: Continue to follow-up with psychiatry Code(s): F84.0 - Autistic disorder Category: Medical Plan: Working with psychiatry for appropriate adjustment of medications. Referral paperwork for [facility] filled out and given to patient for neurodevelopmental and autism clinic. (2) Recurrent falls: Comment: behavioral, poorly controlled TICS, OCD Code(s): R29.6 - Repeated falls Category: Medical Plan: Patient has been having increase in recurrent falls. Caregiver reports if they stop him from falling atypically we will have a worse fall later in the day. They have worked on environmental factors such as knee pads and helmet as well as adjusting the daily routine to prevent the falls. Despite this patient continues to have recurrent falls continue to work with psychiatry and Neurology. (3) Seizure: Code(s): R56.9 - Unspecified convulsions Category: Medical Plan: Continue to follow with Neurology currently on Depakote t.i.d.. (4) Obsessive compulsive disorder (or obsessive compulsive neurosis): Code(s): F42.9 - Obsessive-compulsive disorder, unspecified Category: Medical Qualifiers: Obsessive-compulsive disorder type: mixed obsessional thoughts and acts Qualified Code(s): F42.2 - Mixed obsessional thoughts and acts Plan: Continue to work with psychiatry. Obsessive-compulsive disorder seems to be contributing to the recurrent falls. Plan This note was constructed using voice recognition software. While every effort has been made to ensure accuracy and certified pediatric nurse practitioner, still areas may have been included sometimes these areas may affect the content or meeting of the given symptoms. Total time spent caring for the patient today was 30 minutes. This includes time spent before the visit reviewing the chart, time spent during the visit, and time spent after the visit and documentation.
[2023-11-17 08:07] VITALS: BP 132/80; PULSE 104; O2SAT 97; BMI 25.5
== END 2023-11-17 08:49 | disposition home or self-care (01) ==
PROVIDERS: PCP Internal Medicine
DX: F84.0 Autistic disorder (principal); R29.6 Repeated falls; R56.9 Unspecified convulsions; F42.2 Mixed obsessional thoughts and acts

== ENCOUNTER 2023-12-06 14:22 | Outpatient (AMB) | payer OTHER, SELFPAY ==
[2023-12-06 14:29] VITALS: BP 130/76; PULSE 76; O2SAT 97; BMI 24.5
--- NOTE | 2023-12-06 14:29 | MHC.PC.OV ---
Vital Signs 12/06/23 14:29 Height 5 ft 10 in Weight 171 lb BMI 24.5 BP 130/76 Blood Pressure Location Rt brachial Position Sitting Pulse 76 Pulse Source Pulse Oximeter Pulse Oximetry (%) 97 Oxygen Delivery Method Room Air Intake Visit Reasons: 3 Month Follow Up Director Community Organization Required: No Allergies Naldecon Senior EX Allergy (Unknown, Verified 12/06/23 14:29) Unknown pseudoephedrine [Sudafed] Allergy (Unknown, Verified 12/06/23 14:29) Unknown triprolidine [From Actifed] Allergy (Unknown, Verified 12/06/23 14:29) Unknown Tobacco use date assessed: 09/27/23 Dental Screening Dental Screen Date: 09/27/23 HPI 3 Month Follow Up HPI Details 38-year-old male with autism having recurrent falls diagnosed as having seizure and takes and because of the obsessive compulsiveness. Patient is here for follow-up last seen in November 16. ER note in November 29 having right lower lip swelling after returning from the day program diagnosis of lip injury with intraoral laceration which is healing. November 13 ER visit again for fall with no loss of consciousness workup negative. Patient had blood work done which showed multiple atypical lymphocytes and this has them alerted to see Hematology Oncology. Referral done. Noted with elevated liver function tests ultrasound of the liver done showing normal with no abnormality demonstrated in the ultrasound. [facility] Medical History Tic disorder Hydrocephalus Annual physical exam Urine incontinence Vitamin D deficiency Overweight (BMI 25.0-29.9) Seizure Obsessive compulsive disorder (or obsessive compulsive neurosis) Mental and behavioral problem Surgical History No pertinent past surgical history Social History Housing: Other Alcohol intake: never Patient Tobacco Use Status: Never used Tobacco e-Cigarette/Vaping Use: Never Used Second Hand Smoke Exposure: No service: No Current occupational status: disabled Cognitive needs: Yes (mental and behavioral problem) Hearing needs: No Vision needs: No Questionnaire Thrive Questionnaire Date Thrive assessed: 09/27/23 Are you currently unemployed and looking for a job?: I choose not to answer this question AUDIT C Alcohol Use Questionnaire (AUDIT-C) 1. How often do you have a drink containing alcohol?: Never 3. How often do you have six or more drinks on one occasion?: Never Total Score: 0 DAYANARA-7 AMB Questionnaire DAYANARA-7 Date DAYANARA - 7 assessed: 09/27/23 Source: Developed by Drs. Brijesh Reyes, Ml Woodruff, Sampson Segal and colleagues, with an educational meri from [employer]. Physical exam (Primary Care) Vital Signs: Last Vital Signs Pulse 76 12/06/23 14:29 BP 130/76 12/06/23 14:29 Pulse Ox 97 12/06/23 14:29 Oxygen Delivery Method Room Air 12/06/23 14:29 BMI result Body Mass Index 24.5 Tobacco/Smoking Status: Tobacco use Status Tobacco use date assessed 09/27/23 12/06/23 14:29 Patient Tobacco Use Status Never used Tobacco 12/06/23 14:29 e-Cigarette/Vaping Use Never Used 12/06/23 14:29 Thrive Assessment: Date of Thrive Assessment Date Thrive assessed 09/27/23 12/06/23 14:29 Const General: alert; No acute distress Eyes Conjunctivae: conjunctivae normal Resp Auscultation: clear to auscultation bilaterally Cardio Rate: regular rate Rhythm: regular rhythm GI Inspection: Yes normal to inspection Extrem General: Yes normal to inspection and No edema Office Procedures Flu Questionnaire Does the patient have a severe egg allergy?: No Does the patient have severe life threatening allergies?: No Does the patient have a fever or illness today?: No Has the patient ever had Guillain-[place] Syndrome?: No Has the patient ever had any past reaction to a flu shot?: No Immunizations Fluarix Triv [id number] (PF) 45 mcg (15 mcg x 3)/0.5 mL IM syringe Performing Provider: Luc Shelby MD [facility] Administered by: Haley Naqvi LPN on 12/06/23 15:23 Dose Route Admin Location Dispensed Lot Number Expiration Date [employer] Online Media Director 0.5 mL IM Left Deltoid 0.5 mL [id number] 08/06/24 [id number] [employer] VIS Given Date VIS Provided VIS Publication Date 12/06/23 Single Vaccine 20 Eligibility Eligibility Date Funding Source Not [facility] Eligible 12/06/23 Private Coding Level of Care Code Est Pt Level 4 (93327) Diagnoses Lip laceration, subsequent encounter S01.511D Encounter type: subsequent encounter 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
== END 2023-12-06 16:53 | disposition home or self-care (01) ==
LOC: HO.HMCH 14:23
PROVIDERS: PCP Internal Medicine; Visit Provider Internal Medicine
DX: S01.511D Laceration without foreign body of lip, subsequent encounter (principal); D72.89 Other specified disorders of white blood cells; F84.0 Autistic disorder; R29.6 Repeated falls; Z23 Encounter for immunization

== ENCOUNTER → 2023-12-06 14:22 | Outpatient (BNVA) | payer OTHER, SELFPAY | PROVIDERS: PCP Internal Medicine; Visit Provider Internal Medicine | DX: Z23 Encounter for immunization (principal); S01.511D Laceration without foreign body of lip, subsequent encounter; D72.89 Other specified disorders of white blood cells; F84.0 Autistic disorder; R29.6 Repeated falls | CPT/HCPCS: 90471; 90656; 99212 ==

== ENCOUNTER → 2023-12-08 10:16 | Outpatient (BNV) | payer OTHER, SELFPAY | PROVIDERS: PCP Internal Medicine; Referring Provider Internal Medicine; Visit Provider Internal Medicine Medical Oncology | DX: D72.89 Other specified disorders of white blood cells (principal) | CPT/HCPCS: 99204 ==

== ENCOUNTER 2023-12-22 11:39 | Outpatient (AMB) | payer OTHER, SELFPAY ==
[2023-12-22 11:51] VITALS: BP 128/70; PULSE 92; O2SAT 97
--- NOTE | 2023-12-22 11:51 | MHC.OFFWIV ---
Intake Vital Signs 12/22/23 11:51 Height 5 ft 10 in BP 128/70 Blood Pressure Location Rt brachial Position Sitting Pulse 92 Pulse Source Pulse Oximeter Pulse Oximetry (%) 97 Intake Visit Reasons: EP Rug burn on forehead Patient Tobacco Use Status: Never used Tobacco Allergies Naldecon Senior EX Allergy (Unknown, Verified 12/08/23 10:24) Unknown pseudoephedrine [Sudafed] Allergy (Unknown, Verified 12/08/23 10:24) Unknown triprolidine [From Actifed] Allergy (Unknown, Verified 12/08/23 10:24) Unknown Do you need a note to return to daycare/school/sports/work: No HPI EP Rug burn on forehead HPI Details This note is constructed using voice recognition software. While every effort has been made to ensure accuracy, women's health care nurse practitioner errors may have been included. The patient is a 38 year old non verbal male who presents with his inorganic chemical technician to the clinic today with forehead abrasion. His inorganic chemical technician reports that he typically places himself on the floor and then rubs his skin on carpet until he gets an abrasion. This has been a problem that they have been struggling with through the day program for quite some time, and at this point, he is made to wear knee pads to prevent him from obtaining abrasions to his knees. Since he has been wearing the knee pads, he has been looking for other portions of the skin to come in contact with the rug for the same effect. Today he did so with his forehead. Per the inorganic chemical technician, he is not shown signs of any pain. There is been no bleeding. And typically they keep the area clean and dry. [facility] Medical History Tic disorder Hydrocephalus Annual physical exam Urine incontinence Vitamin D deficiency Overweight (BMI 25.0-29.9) Seizure Obsessive compulsive disorder (or obsessive compulsive neurosis) Mental and behavioral problem Surgical History No pertinent past surgical history Social History (Updated 12/08/23 @ 10:24 by Joseluis Barrow) Housing: Other Alcohol intake: never Patient Tobacco Use Status: Never used Tobacco e-Cigarette/Vaping Use: Never Used Second Hand Smoke Exposure: No service: No Current occupational status: disabled Cognitive needs: Yes (mental and behavioral problem) Hearing needs: No Vision needs: No Review of Systems Const Unobtainable due to mental status and Other (All normal per inorganic chemical technician.) Physical Exam Vital Signs: Last Vital Signs Pulse 92 12/22/23 11:51 BP 128/70 12/22/23 11:51 Pulse Ox 97 12/22/23 11:51 Const General: cooperative, healthy appearing, comfortable, no acute distress and well developed Resp Effort & Inspection: normal respiratory effort and able to speak in complete sentences Skin Other: 2 x 2 cm abrasion to left forehead, without discharge, or signs of secondary bacterial infection. Assessment & Plan Assessment & Plan (1) Abrasion head: Code(s): S00.91XA - Abrasion of unspecified part of head, initial encounter Qualifiers: Encounter type: initial encounter Qualified Code(s): S00.91XA - Abrasion of unspecified part of head, initial encounter Plan: Advised keeping the area clean with mild soap and water, pat dry, and application of liquid Band-Aid to help prevent further injury and infection. Letter provided for returned to day program with the same instructions. Advised follow up with worsening symptoms or failure to resolve. Plan See above for full details and plan. Coding Level of Care Code Est Pt Level 3 (33126) Diagnoses Abrasion of head, initial encounter S00.91XA Encounter type: initial encounter
== END 2023-12-22 12:12 | disposition home or self-care (01) ==
PROVIDERS: PCP Internal Medicine; Visit Provider Registered Nurse
DX: S00.91XA Abrasion of unspecified part of head, initial encounter (principal)

== ENCOUNTER → 2023-12-22 11:39 | Outpatient (BNVA) | payer OTHER, SELFPAY | PROVIDERS: PCP Internal Medicine; Visit Provider Registered Nurse | DX: S00.91XA Abrasion of unspecified part of head, initial encounter (principal) | CPT/HCPCS: 99212 ==

== ENCOUNTER 2024-01-18 13:58 | Outpatient (AMB) | payer OTHER, SELFPAY ==
[2024-01-18 14:01] VITALS: BP 128/76; PULSE 106; O2SAT 98; BMI 25.2
--- NOTE | 2024-01-18 14:01 | A.OFFPC_ITS ---
Vital Signs 3 01/18/24 14:01 Height 5 ft 10 in Weight 175 lb 6 oz BMI 25.2 BP 128/76 Blood Pressure Location Lt brachial Position Sitting Pulse 106 H Pulse Source Pulse Oximeter Pulse Oximetry (%) 98 Oxygen Delivery Method Room Air Intake Visit Reasons: PE Poultry Inseminator Required: No Accompanied by: Self / Same As Patient Allergies Naldecon Senior EX Allergy (Unknown, Verified 01/18/24 14:02) Unknown pseudoephedrine [Sudafed] Allergy (Unknown, Verified 01/18/24 14:02) Unknown triprolidine [From Actifed] Allergy (Unknown, Verified 01/18/24 14:02) Unknown Tobacco use date assessed: 01/18/24 Dental Screening Dental Screen Date: 01/18/24 Did you have a dental visit in the last 12 months?: Yes Did you have a dental problem in the last 6 months where you did not have access to dental care?: No Was dental information given to patient?: Patient has dentist HPI PE 2 HPI0 Details 38-year-old male with a mental and behav ioral problem obsessive compulsiveness and autism history of seizures coming in for annual exam. In review of the notes, patient was [place] [facility] [place] for an abrasion on the head applied liquid Band-Aid and discharged home. Patient has also had several ED visits in the last several months for various abrasions related to his behavioral tics. Patient [facility] today with [facility] the [facility]. He does have this new behavior where he will rub his head on a wall or the rug until he has an abrasion. He was seen by Neurology and Tracy and Haldol was increased. He also recently completed a 24 hour EEG and has a follow up with Neurology coming up. No concerns today. ON LICENSE OF [facility] Medical History Tic disorder Hydrocephalus Annual physical exam Urine incontinence Vitamin D deficiency Overweight (BMI 25.0-29.9) Seizure Obsessive compulsive disorder (or obsessive compulsive neurosis) Mental and behavioral problem Surgical History No pertinent past surgical history Social History Housing: Other Alcohol intake: never Patient Tobacco Use Status: Never used Tobacco e-Cigarette/Vaping Use: Never Used Second Hand Smoke Exposure: No service: No Current occupational status: disabled Cognitive needs: Yes (mental and behavioral problem) Hearing needs: No Vision needs: No Questionnaire PHQ-9 Over the last 2 weeks, how often have you been bothered by any of the following problems? 1. Little interest or pleasure in doing things: not at all 2. Feeling down, depressed, or hopeless: not at all 3. Trouble falling or staying asleep, or sleeping too much: not at all 4. Feeling tired or having little energy: not at all 5. Poor appetite or overeating: not at all 6. Feeling bad about yourself - or that you are a failure or have let yourself or your family down: not at all 7. Trouble concentrating on things, such as reading the newspaper or watching television: not at all 8. Moving or speaking so slowly that other people could have noticed. Or the opposite - being so fidgety or restless that you have been moving around a lot more than usual: not at all 9. Thoughts that you would be better off or of hurting yourself in some way: not at all Total score: 0 Depression Screening Interpretation: Negative Depression Screening Done: Yes Source: Developed by Drs. Brijesh Reyes, Ml Woodruff, Sampson Segal and colleagues, with an educational meri from [employer]. Thrive Questionnaire Date Thrive assessed: 01/18/24 I am a: Patient What is your living situation today?: I have a steady place to live Within the past 12 months, did the food you bought not last and you didn't have the money to get more?: Never true Within the past 12 months, did you worry whether your food would run out before you got money to buy more?: Never true Do you have trouble paying for medicines?: No Do you have trouble getting transportation to medical appointments?: No Do you have trouble paying your heating and electricity bill?: No Do you have trouble taking care of your child, family member or friend?: No Do you have trouble with day-to-day activities such as bathing, preparing meals, shopping, managing finances, etc.?: No Are you currently unemployed and looking for a job?: I choose not to answer this question Are you interested in more education?: No Please select the resources that you would like help with: None Currently or been in a relationship where the following occur: No concerns reported THRIVE Score: 0 AUDIT C Alcohol Use Questionnaire (AUDIT-C) 1. How often do you have a drink containing alcohol?: Never 3. How often do you have six or more drinks on one occasion?: Never Total Score: 0 DAYANARA-7 AMB Questionnaire DAYANARA-7 Date DAYANARA - 7 assessed: 01/18/24 Feeling nervous, anxious, or on edge: 0 = Not at all Not being able to stop or control worryin = Not at all Worrying too much about different things: 0 = Not at all Trouble relaxin = Not at all Being so restless that it is hard to sit still: 0 = Not at all Becoming easily annoyed or irritable: 0 = Not at all Feeling afraid as if something awful might happen: 0 = Not at all Total DAYANARA-7 score (0-4 normal; 5-9 mild; 10-14 moderate; 15-21 severe): 0 Source: Developed by Drs. Brijesh Reyes, Ml Woodruff, Sampson Segal and colleagues, with an educational meri from [employer]. Review of Systems Const Details: Difficult to obtain due to patient's mental status Denies body aches, Denies chills and Denies fever(s) Eyes Reports no additional complaints ENT Reports no additional complaints Card Denies chest pain and Denies dyspnea Resp Denies dyspnea GI Denies abdominal pain, Denies constipation, Denies diarrhea, Denies nausea and Denies vomiting Reports no additional complaints Musc Reports no additional complaints Skin/Breast Reports as per HPI Physical exam (Primary Care) Vital Signs: Last Vital Signs Pulse 106 H 01/18/24 14:01 BP 128/76 01/18/24 14:01 Pulse Ox 98 01/18/24 14:01 Oxygen Delivery Method Room Air 01/18/24 14:01 BMI result Body Mass Index 25.2 Tobacco/Smoking Status: Tobacco use Status Tobacco use date assessed 01/18/24 01/18/24 14:07 Patient Tobacco Use Status Never used Tobacco 01/18/24 14:07 e-Cigarette/Vaping Use Never Used 01/18/24 14:07 PHQ-9: PHQ-9 Score PHQ-9: Total score 0 01/18/24 14:07 Depression Screening Interpretation: Negative Thrive Assessment: Date of Thrive Assessment Date Thrive assessed 01/18/24 01/18/24 14:07 Currently or been in a relationship where the following occur: No concerns reported Const General: cooperative, healthy appearing, comfortable and no acute distress Orientation/consciousness: patient oriented x3 HENMT Head: Yes normocephalic Head images: 2 1. Abrasion 2. Abrasion Ears: hearing grossly normal bilaterally, external ears normal, TM's normal bilaterally and EAC's normal General nose exam: Normal external nose present Face and sinus: Yes normal facial exam and Yes sinuses nontender Mouth: Normal oral and palatal mucosa present and tongue normal Throat: Yes posterior oropharynx normal Eyes General: appearance normal, both eyes and all related structures Conjunctivae: conjunctivae normal Pupils: Equal, round and reactive pupils present EOM: EOMs intact bilaterally and No Nystagmus present Neck Neck: Yes normal visual inspection, Yes full ROM and Yes no lymphadenopathy Chest Chest palpation & inspection: normal inspection of the chest Resp Effort & Inspection: normal respiratory effort Auscultation: clear to auscultation bilaterally, no crackles, no rales, no rhonchi, no wheezes and breath sounds present Cardio Rate: regular rate Rhythm: regular rhythm Peripheral pulses: radial pulses present and dorsalis pedis present GI Inspection: Yes normal to inspection and No Abdominal wall edema Palpation (GI): Soft to palpation, not firm and nontender Auscultation: normal bowel sounds Rectal Exam - Male: Yes deferred General: Yes no CVA tenderness Back/Spine/Pelvis Back: no CVA tenderness Skin General skin exam: no rashes or lesions noted Neuro General: patient oriented x3 Cranial nerves: Yes Equal, round and reactive pupils present, Yes Midline tongue present, Yes Ability to bilaterally elevate shoulders present and No Nystagmus present Gait exam (Neuro): Normal gait present Extrem General: Yes normal to inspection, Yes full ROM, No no pedal edema and No edema Psych Other: Patient is nonverbal Affect: normal affect Insight: Poor insight present (Psych) Judgement: Poor judgement present (Psych) Coding Level of Care Code Est Pt Prev Care 18-39y(20593) Diagnoses Tic disorder F95.9 Autism F84.0 Anemia D64.9 Recurrent falls R29.6 Annual physical exam Z00.00 Overweight (BMI 25.0-29.9) E66.3 Seizure R56.9 Mixed obsessional thoughts and acts F42.2 Obsessive-compulsive disorder type: mixed obsessional thoughts and acts Assessment & Plan Assessment & Plan (1) Tic disorder: Comment: poorly controlled Code(s): F95.9 - Tic disorder, unspecified Category: Medical Plan: Patient continues to follow with Neurology on Depakote and Haldol. Ordered for additional testing to rule out other underlying causes. (2) Autism: Comment: Continue to follow-up with psychiatry Code(s): F84.0 - Autistic disorder Category: Medical Plan: Continue to follow with Psychiatry and Neurology. (3) Anemia: Code(s): D64.9 - Anemia, unspecified Category: Medical Plan: Patient was anemic on last labs appears to be chronically anemic. We will order for iron panel for further evaluation. (4) Recurrent falls: Comment: behavioral, poorly controlled TICS, OCD Code(s): R29.6 - Repeated falls Category: Medical Plan: Patient having recurrent falls question of seizure activity recently had EEG performed. Continue to follow with Neurology. On Depakote and Haldol. Patient does have 2 small abrasions with normal healing on the forehead advised to continue with bacitracin and continue to monitor for infection. (5) Annual physical exam: Code(s): Z00.00 - Encounter for general adult medical examination without abnormal findings Category: Medical Plan: Patient is up-to-date on all recommended routine screenings vaccinations. Blood work is updated and ordered for additional tests. Follow up at next visit. (6) Overweight (BMI 25.0-29.9): Code(s): E66.3 - Overweight Category: Medical Plan: Healthy diet and regular exercise is encouraged. (7) Seizure: Code(s): R56.9 - Unspecified convulsions Category: Medical Plan: Recently had EEG performed at [facility] and has follow up with Neurology in the next few months. (8) Obsessive compulsive disorder (or obsessive compulsive neurosis): Code(s): F42.9 - Obsessive-compulsive disorder, unspecified Category: Medical Qualifiers: Obsessive-compulsive disorder type: mixed obsessional thoughts and acts Qualified Code(s): F42.2 - Mixed obsessional thoughts and acts Plan: Continue to follow with psychiatry. Plan This note was constructed using voice recognition software. While every effort has been made to ensure accuracy and pipe layer helper, still areas may have been included sometimes these areas may affect the content or meeting of the given symptoms. Total time spent caring for the patient today was 30 minutes. This includes time spent before the visit reviewing the chart, time spent during the visit, and time spent after the visit and documentation. Orders: Orders 2 ECG 12 lead EKG Today R56.9 - Unspecified convulsions SALMA Reflex Titer and Pattern Today R56.9 - Unspecified convulsions IRON PROFILE Today D64.9 - Anemia, unspecified Lipid Panel Today E78.00 - Pure hypercholesterolemia, unspecified
== END 2024-01-18 14:51 | disposition home or self-care (01) ==
PROVIDERS: PCP Internal Medicine
DX: Z00.00 Encounter for general adult medical examination without abnormal findings (principal); F95.9 Tic disorder, unspecified; R56.9 Unspecified convulsions; F84.0 Autistic disorder; D64.9 Anemia, unspecified; R29.6 Repeated falls; E66.3 Overweight; F42.2 Mixed obsessional thoughts and acts

== ENCOUNTER → 2024-01-18 13:58 | Outpatient (BNVA) | payer OTHER, SELFPAY | PROVIDERS: PCP Internal Medicine | DX: Z00.00 Encounter for general adult medical examination without abnormal findings (principal); F95.9 Tic disorder, unspecified; F84.0 Autistic disorder; D64.9 Anemia, unspecified; R26.9 Unspecified abnormalities of gait and mobility; E66.3 Overweight; R56.9 Unspecified convulsions; F42.2 Mixed obsessional thoughts and acts | CPT/HCPCS: 96127; 99395 ==

== ENCOUNTER → 2024-01-25 10:51 | Outpatient (REF) | payer OTHER, SELFPAY ==
--- NOTE | 2024-01-25 10:55 | ECG_ITS ---
Test Reason : r56.9 Blood Pressure : / mmHG Vent. Rate : 107 BPM Atrial Rate : 107 BPM P-R Int : 148 ms QRS Dur : 082 ms QT Int : 330 ms P-R-T Axes : 078 053 070 degrees QTc Int : 440 ms Sinus tachycardia Otherwise normal ECG When compared with ECG of 02-JAN-2023 17:04, No significant change was found Referred By: Yandy Lafleur Electronically Signed By:MARTIN HICKEY
== END ==
LOC: HO.CARD 10:51
PROVIDERS: PCP Internal Medicine; Referring Provider Internal Medicine
DX: R56.9 Unspecified convulsions (principal)
CPT/HCPCS: 93005

== ENCOUNTER → 2024-01-25 10:55 | Outpatient (BNV) | payer OTHER, SELFPAY | PROVIDERS: PCP Internal Medicine; Referring Provider Internal Medicine; Visit Provider Internal Medicine | DX: R00.0 Tachycardia, unspecified (principal) | CPT/HCPCS: 93010 ==

== ENCOUNTER 2024-02-14 08:35 | Outpatient (REF) | payer OTHER, SELFPAY ==
[2024-02-14 08:54] LABS: MANUAL DIFF FLAG NO
[2024-02-14 09:36] LABS: Basophils Percent Auto 0.7 % (0-2); Eosinophils Percent Auto 0.2 % (0-4); Hemoglobin 14.7 g/dl (14.0-18.0); Imm Gran Abs Auto 0.01 X10*3/uL (0.00-0.03); Imm Gran Pct Auto 0.2 % (0.0-0.4); Lymphocytes Absolute Auto 2.2 X10*3/uL (1.2-4.9); Mean Corpuscular HGB Conc 33.4 g/dl (31.0-36.0); Mean Corpuscular Hemoglobin 28.9 pg (27.0-33.0); Mean Corpuscular Volume 86.6 fL (80.0-98.0); Mean Platelet Volume 10.9 fL (9.4-12.4); Monocytes Absolute Auto 0.4 X10*3/uL (0.1-1.2); Monocytes Percent Auto 8.4 % (2-11); Neutrophils Absolute Auto 1.8 x10*3/uL (2.0-8.3); Neutrophils Percent Auto 41.5 % (45-73); Platelet Count 169 X10*3/uL (160-400); Red Blood Count 5.08 X10*6/uL (4.60-5.80); Red Cell Distribution Width 12.8 % (11.0-16.0); White Blood Count 4.4 X10*3/uL (4.8-10.8)
[2024-02-14 10:12] LABS: Alanine Aminotransferase 48 U/L (0-40); Albumin Level 4.2 g/dL (3.5-5.0); Alkaline Phosphatase 108 U/L (39-117); Anion Gap 10 (12-20); Aspartate Amino Transferase 36 U/L (5-37); Bilirubin Total 0.4 mg/dL (0.0-1.0); Blood Urea Nitrogen 11 mg/dL (9-16); Calcium 9.4 mg/dL (8.4-10.2); Carbon Dioxide 28 mmol/L (22-29); Chloride 107 mmol/L (96-108); Estimated Glomerular Filt Rate > 60; Glucose Random 86 mg/dL (60-115); Potassium 4.1 mmol/L (3.3-5.1); Sodium 141 mmol/L (135-145); Total Protein 7.3 g/dL (6.5-8.0)
[2024-02-14 10:30] LABS: Free T4 (Free Thyroxine) 0.92 ng/dL (0.71-1.85); Thyroid Stimulating Hormone 2.28 uIU/mL (0.32-4.0)
== END 2024-02-14 08:36 | disposition home or self-care (01) ==
LOC: HO.LAB 08:35
PROVIDERS: Absent Provider Internal Medicine; PCP Internal Medicine
DX: E87.0 Hyperosmolality and hypernatremia (principal); R56.9 Unspecified convulsions; D72.89 Other specified disorders of white blood cells
CPT/HCPCS: 36415; 80053; 84439; 84443; 85025; 88184; 88185

== ENCOUNTER 2024-02-14 12:00 | Outpatient (REF) | payer OTHER, SELFPAY | END 2024-02-14 12:01 | disposition home or self-care (01) | LOC: HO.NEURO 12:00 | PROVIDERS: PCP Internal Medicine; Visit Provider Internal Medicine | DX: Z13.89 Encounter for screening for other disorder (principal) ==

== ENCOUNTER 2024-02-15 09:58 | Outpatient (AMB) | payer OTHER, SELFPAY ==
[2024-02-15 10:01] VITALS: BP 128/90; PULSE 116; O2SAT 99; BMI 25.4
--- NOTE | 2024-02-15 10:01 | MHC.OFFVIS ---
Vital Signs 02/15/24 10:01 Height 5 ft 10 in Weight 177 lb BMI 25.4 BP 128/90 H Blood Pressure Location Rt brachial Position Sitting Pulse 116 H Pulse Source Pulse Oximeter Pulse Oximetry (%) 99 Oxygen Delivery Method Room Air Intake Visit Reasons: Follow up Supervisor Inspection Room Required: No Allergies Naldecon Senior EX Allergy (Unknown, Verified 02/15/24 10:03) Unknown pseudoephedrine [Sudafed] Allergy (Unknown, Verified 02/15/24 10:03) Unknown triprolidine [From Actifed] Allergy (Unknown, Verified 02/15/24 10:03) Unknown Do you need a note to return to daycare/school/sports/work: No HPI Comments Details: 38 y/o male patient presents for follow up visit for recurrent falls, OCD and Autism. PMH of developmental delay, OCD and Autism. Pt is accompanied by Senior Care Staff and Nurse. He is non- verbal, staff reports no change in TICS or falls. Psychiatry increased his haloperidol to 0.5mg tid. His falls are more like drop attacks, propioception seeking behavior, likes loud music and hard high fives . It varies according to the staff - he falls when he is with certain staff and he falls a lot in the dining room - he usually sits down when he has no one can catch him. Likes to fall going up the stairs, seeks muscle feedback. He likes routine, OCD behaviors, he also tends to slump down in the same location when he goes on walks . Pt does not have physical therapy. OT will come from community service within a month. Per Senior Care staffs, pt had the first fall in November 2022, and then he has been falling almost everyday. Pt had a CT of head in December in ER which did evidence consistent with mild hydrocephalus. Neuropsych- Recommended decrease 1500mg to 1000 mg (500mg PO BID), monitor LFTS. Haoloperidol - decrease next time if in pscyhiatry recommends. Diet is good, gets plenty of exercise with staff. [facility] Medical History Tic disorder Hydrocephalus Annual physical exam Urine incontinence Vitamin D deficiency Overweight (BMI 25.0-29.9) Seizure Obsessive compulsive disorder (or obsessive compulsive neurosis) Mental and behavioral problem Surgical History No pertinent past surgical history Social History Housing: Other Alcohol intake: never Patient Tobacco Use Status: Never used Tobacco e-Cigarette/Vaping Use: Never Used Second Hand Smoke Exposure: No service: No Current occupational status: disabled Cognitive needs: Yes (mental and behavioral problem) Hearing needs: No Vision needs: No Review of Systems Const All systems reviewed & are unremarkable except as noted in HPI and below Physical Exam Vital Signs: Last Vital Signs Pulse 116 H 02/15/24 10:01 BP 128/90 H 02/15/24 10:01 Pulse Ox 99 02/15/24 10:01 Oxygen Delivery Method Room Air 02/15/24 10:01 BMI result Body Mass Index 25.4 Const General: cooperative Nutritional Appearance: average body habitus HEENT Face and sinus: Yes face symmetric Neck Neck: Yes full ROM and Yes supple Neuro Other: Non verbal. Vocal TICS- teeth grinding Motor TICS - multiple TICS , tapping his foot , no perioral movements Cranial nerves: Yes Normal facial strength present, Yes Midline tongue present and Yes Ability to bilaterally rotate head present Psych Appearance: grossly normal Results Reviewed Results Reviewed: CT scan Hydrocephalus Labs LFTs Elevated - 02/14/2024 Leukemia? Hematology f/u Assessment & Plan Assessment & Plan (1) Recurrent falls: Comment: behavioral, poorly controlled TICS, OCD Code(s): R29.6 - Repeated falls Category: Medical (2) Tic disorder: Comment: poorly controlled Code(s): F95.9 - Tic disorder, unspecified Category: Medical (3) Autism: Comment: Continue to follow-up with psychiatry Code(s): F84.0 - Autistic disorder Category: Medical (4) Obsessive compulsive disorder (or obsessive compulsive neurosis): Code(s): F42.9 - Obsessive-compulsive disorder, unspecified Category: Medical Qualifiers: Obsessive-compulsive disorder type: mixed obsessional thoughts and acts Qualified Code(s): F42.2 - Mixed obsessional thoughts and acts Plan Autism and OCD: Behavior management of TICS Haloperidol to 0.5mg tid for better control of TICS, per psychiatry. Decreased Depakote from 1500mg PO TID to 500mg PO BID, per Neuro-pscyhiatry and PCP, monitor LFTs. Continue with socialization, puzzles, running/walking exercises as tolerated, non-verbal PT/OT services if available. Follow up in 3 months, call or message us on the portal as needed. Coding Level of Care Code Est Pt Level 4 (99898) Diagnoses Recurrent falls R29.6 Tic disorder F95.9 Autism F84.0 Mixed obsessional thoughts and acts F42.2 Obsessive-compulsive disorder type: mixed obsessional thoughts and acts Time Spent (min) 30 Comment Stable
== END 2024-02-15 11:27 | disposition home or self-care (01) ==
PROVIDERS: Absent Provider Physician Assistant Medical; PCP Internal Medicine; Visit Provider Psychiatry & Neurology Neurology
DX: R29.6 Repeated falls (principal); F95.9 Tic disorder, unspecified; F84.0 Autistic disorder; F42.2 Mixed obsessional thoughts and acts
CPT/HCPCS: 99214

== ENCOUNTER → 2024-02-15 09:58 | Outpatient (BNVA) | payer OTHER, SELFPAY | PROVIDERS: PCP Internal Medicine; Visit Provider Psychiatry & Neurology Neurology | DX: F42.2 Mixed obsessional thoughts and acts (principal); F84.0 Autistic disorder; F95.9 Tic disorder, unspecified; R29.6 Repeated falls | CPT/HCPCS: 99212 ==

== ENCOUNTER 2024-02-23 14:02 | Outpatient (AMB) | payer OTHER, SELFPAY ==
--- NOTE | 2024-02-23 14:04 | MHC.PC.OV ---
Vital Signs 02/23/24 14:06 Height 5 ft 10 in Weight 177 lb 9 oz BMI 25.5 BP 120/76 Blood Pressure Location Rt brachial Position Sitting Pulse 95 Pulse Source Pulse Oximeter Temp 96.9 F Temp Source Skin Pulse Oximetry (%) 97 Oxygen Delivery Method Room Air Intake Visit Reasons: tic, AUTISM Intake Note: Patient is here to follow up on Tic, Auutism. Shoe Repairer Helper Required: No Student Life Coordinator: Present (program management professional, website developer) Accompanied by: Staff Allergies Naldecon Senior EX Allergy (Unknown, Verified 02/23/24 14:06) Unknown pseudoephedrine [Sudafed] Allergy (Unknown, Verified 02/23/24 14:06) Unknown triprolidine [From Actifed] Allergy (Unknown, Verified 02/23/24 14:06) Unknown Tobacco use date assessed: 02/23/24 Dental Screening Dental Screen Date: 02/23/24 Did you have a dental visit in the last 12 months?: No Did you have a dental problem in the last 6 months where you did not have access to dental care?: No Was dental information given to patient?: Patient has dentist HPI tic, AUTISM HPI Details The patient is a 38-year-old male presenting with concerns regarding the management of his seizure disorder. The discussion centered around the adjustment of current seizure medication, as informed by a neurologist. Notably, the patient has not experienced any seizures to date while on this regimen. Recent modifications in treatment included a decrease in one of the patient's medications, Depakote, due to side effects. The patient's blood work has shown improvement since a previous evaluation, with a normal white blood cell count of 4.4 and the absence of anemia. Liver function tests, previously elevated, have improved but remain above the normal range. His thyroid function is within normal limits. Additionally, there was a mention of considering lupus due to a family member's concern, although prior sed rate examinations conducted in November were normal, showing no indications of lupus or other inflammatory conditions. A query about discontinuing Colace was addressed, noting the patient has not experienced constipation, thus no longer requiring this medication. [facility] Medical History Tic disorder Hydrocephalus Annual physical exam Urine incontinence Vitamin D deficiency Overweight (BMI 25.0-29.9) Seizure Obsessive compulsive disorder (or obsessive compulsive neurosis) Mental and behavioral problem Surgical History No pertinent past surgical history Social History Housing: Other Alcohol intake: never Patient Tobacco Use Status: Never used Tobacco e-Cigarette/Vaping Use: Never Used Second Hand Smoke Exposure: No service: No Current occupational status: disabled Cognitive needs: Yes (mental and behavioral problem) Hearing needs: No Vision needs: No Questionnaire PHQ-9 Over the last 2 weeks, how often have you been bothered by any of the following problems? 1. Little interest or pleasure in doing things: not at all 2. Feeling down, depressed, or hopeless: not at all 3. Trouble falling or staying asleep, or sleeping too much: not at all 4. Feeling tired or having little energy: not at all 5. Poor appetite or overeating: not at all 6. Feeling bad about yourself - or that you are a failure or have let yourself or your family down: not at all 7. Trouble concentrating on things, such as reading the newspaper or watching television: not at all 8. Moving or speaking so slowly that other people could have noticed. Or the opposite - being so fidgety or restless that you have been moving around a lot more than usual: not at all 9. Thoughts that you would be better off or of hurting yourself in some way: not at all Total score: 0 Depression Screening Interpretation: Negative Depression Screening Done: Yes Source: Developed by Drs. Brijesh Reyes, Ml Woodruff, Sampson Segal and colleagues, with an educational meri from [employer]. Thrive Questionnaire Date Thrive assessed: 02/23/24 I am a: Patient What is your living situation today?: I have a steady place to live Within the past 12 months, did the food you bought not last and you didn't have the money to get more?: Never true Within the past 12 months, did you worry whether your food would run out before you got money to buy more?: Never true Do you have trouble paying for medicines?: No Do you have trouble getting transportation to medical appointments?: No Do you have trouble paying your heating and electricity bill?: No Do you have trouble taking care of your child, family member or friend?: No Do you have trouble with day-to-day activities such as bathing, preparing meals, shopping, managing finances, etc.?: No Are you currently unemployed and looking for a job?: No Are you interested in more education?: No Please select the resources that you would like help with: None Currently or been in a relationship where the following occur: No concerns reported THRIVE Score: 0 AUDIT C Alcohol Use Questionnaire (AUDIT-C) 1. How often do you have a drink containing alcohol?: Never Total Score: 0 DAYANARA-7 AMB Questionnaire DAYANARA-7 Date DAYANARA - 7 assessed: 02/23/24 Feeling nervous, anxious, or on edge: 0 = Not at all Not being able to stop or control worryin = Not at all Worrying too much about different things: 0 = Not at all Trouble relaxin = Not at all Being so restless that it is hard to sit still: 0 = Not at all Becoming easily annoyed or irritable: 0 = Not at all Feeling afraid as if something awful might happen: 0 = Not at all Total DAYANARA-7 score (0-4 normal; 5-9 mild; 10-14 moderate; 15-21 severe): 0 Source: Developed by Drs. Brijesh Reyes, Ml Woodruff, Sampson Segal and colleagues, with an educational meri from [employer]. Physical exam (Primary Care) Vital Signs: Last Vital Signs Temp 96.9 F 02/23/24 14:06 Pulse 95 02/23/24 14:06 BP 120/76 02/23/24 14:06 Pulse Ox 97 02/23/24 14:06 Oxygen Delivery Method Room Air 02/23/24 14:06 BMI result Body Mass Index 25.5 Tobacco/Smoking Status: Tobacco use Status Tobacco use date assessed 02/23/24 02/23/24 14:10 Patient Tobacco Use Status Never used Tobacco 02/23/24 14:10 e-Cigarette/Vaping Use Never Used 02/23/24 14:10 PHQ-9: PHQ-9 Score PHQ-9: Total score 0 02/23/24 14:10 Depression Screening Interpretation: Negative Thrive Assessment: Date of Thrive Assessment Date Thrive assessed 02/23/24 02/23/24 14:10 Currently or been in a relationship where the following occur: No concerns reported Const General: alert; No acute distress Eyes Conjunctivae: conjunctivae normal Resp Auscultation: clear to auscultation bilaterally Cardio Rate: regular rate Rhythm: regular rhythm GI Inspection: Yes normal to inspection Extrem General: Yes normal to inspection and No edema Coding Level of Care Code Est Pt Level 4 (67966) Diagnoses 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 Tic disorder F95.9 Autism F84.0 Mixed obsessional thoughts and acts F42.2 Obsessive-compulsive disorder type: mixed obsessional thoughts and acts Seizure R56.9 Assessment & Plan Assessment & Plan (1) 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: Code(s): D72.89 - Other specified disorders of white blood cells Category: Medical Plan: hematology work up reactive (2) Tic disorder: Comment: poorly controlled Code(s): F95.9 - Tic disorder, unspecified Category: Medical (3) Autism: Comment: Continue to follow-up with psychiatry Code(s): F84.0 - Autistic disorder Category: Medical (4) Obsessive compulsive disorder (or obsessive compulsive neurosis): Code(s): F42.9 - Obsessive-compulsive disorder, unspecified Category: Medical Qualifiers: Obsessive-compulsive disorder type: mixed obsessional thoughts and acts Qualified Code(s): F42.2 - Mixed obsessional thoughts and acts (5) Seizure: Code(s): R56.9 - Unspecified convulsions Category: Medical Plan - Continue monitoring the patient's liver function and thyroid levels considering the elevated liver enzymes and medication adjustments. - Re-evaluate seizure management plan and adjust medications gradually, prioritizing withdrawal from one medication at a time, starting with Haldol as per the neurologist's recommendation. - Discontinue Colace due to the absence of constipation symptoms. - No further testing for lupus is warranted given the absence of clinical indicators and normal sed rate results. - Continue engaging with the neurologist regarding the medication regimen to manage seizure disorder and assess for potential side effects. Medications: Discontinued docusate sodium Discontinued Reason: Doctor's Order 100 mg PO DAILY 90 caps 11RF
[2024-02-23 14:06] VITALS: BP 120/76; PULSE 95; TEMP 36.1; O2SAT 97; BMI 25.5
== END 2024-02-23 14:53 | disposition home or self-care (01) ==
PROVIDERS: PCP Internal Medicine; Visit Provider Internal Medicine
DX: D72.89 Other specified disorders of white blood cells (principal); F95.9 Tic disorder, unspecified; R56.9 Unspecified convulsions; F84.0 Autistic disorder; F42.2 Mixed obsessional thoughts and acts

== ENCOUNTER → 2024-02-23 14:02 | Outpatient (BNVA) | payer OTHER, SELFPAY | PROVIDERS: PCP Internal Medicine; Visit Provider Internal Medicine | DX: D72.89 Other specified disorders of white blood cells (principal); F95.9 Tic disorder, unspecified; F84.0 Autistic disorder; F42.2 Mixed obsessional thoughts and acts; R56.9 Unspecified convulsions | CPT/HCPCS: 99212 ==

== ENCOUNTER 2024-04-02 14:05 | Outpatient (AMB) | payer OTHER, SELFPAY ==
[2024-04-02 14:17] VITALS: BP 120/68; PULSE 99; BMI 25.0
--- NOTE | 2024-04-02 14:17 | MHC.OFFVIS ---
Vital Signs 04/02/24 14:17 Height 5 ft 10 in Weight 174 lb BMI 25.0 BP 120/68 Blood Pressure Location Lt brachial Position Sitting Pulse 99 Pulse Source Monitor Intake Visit Reasons: fu req Po/ tachycardia Allergies Naldecon Senior EX Allergy (Unknown, Verified 03/12/24 11:11) Unknown pseudoephedrine [Sudafed] Allergy (Unknown, Verified 03/12/24 11:11) Unknown triprolidine [From Actifed] Allergy (Unknown, Verified 03/12/24 11:11) Unknown HPI Comments Details: Bro comes for a follow-up visit. Unclear as to the reason for cardiology follow-up. He is a resident of prison with limited verbal capacity and presents here with esthetician spa. As per the esthetician spa he has had multiple drop attacks, without any loss of consciousness. There has been a question about seizure disorder in his undergone a EEG but of unclear whether he is having seizure disorder. He has also undergone orthostatic vital sign measurements at his prison which have been negative. He does drink a lot of water. Not as much salt intake. Blood pressure is generally controlled. Patient obviously presents no symptoms. His prior cardiac workup has been within normal limits COUNTS INCLUDE 234 BEDS AT THE [facility] Medical History Tic disorder Hydrocephalus Annual physical exam Urine incontinence Vitamin D deficiency Overweight (BMI 25.0-29.9) Seizure Obsessive compulsive disorder (or obsessive compulsive neurosis) Mental and behavioral problem Surgical History No pertinent past surgical history Social History Housing: Other Alcohol intake: never Patient Tobacco Use Status: Never used Tobacco e-Cigarette/Vaping Use: Never Used Second Hand Smoke Exposure: No service: No Current occupational status: disabled Cognitive needs: Yes (mental and behavioral problem) Hearing needs: No Vision needs: No Review of Systems Const Denies weakness ENT Denies dizziness Card Denies chest pain, Denies chest pain with activity, Denies syncope, Denies rapid heart rate, Denies pedal edema, Denies edema, Denies leg edema, Denies lightheadedness, Denies palpitations, Denies dyspnea, Denies dyspnea on exertion and Denies orthopnea Resp Denies cough, Denies dyspnea and Denies dyspnea on exertion GI Denies hematochezia and Denies change in stool character Musc Denies abnormal gait, Denies muscle cramps, Denies muscle weakness, Denies numbness, Denies radiating pain into limb and Denies tingling Neuro Denies abnormal gait, Denies dizziness, Denies syncope, Denies numbness, Denies tingling and Denies weakness Endo Denies palpitations Physical Exam Vital Signs: Last Vital Signs Pulse 99 04/02/24 14:17 BP 120/68 04/02/24 14:17 BMI result Body Mass Index 25.0 Const General: cooperative, comfortable, alert and awake Nutritional Appearance: average body habitus Limitations: no limitations HEENT Head: Yes normocephalic and Yes atraumatic Neck Neck: Yes trachea midline, Yes supple and Yes no JVD Resp Effort & Inspection: normal respiratory effort Auscultation: clear to auscultation bilaterally Cardio Jugular venous distension: no JVD Palpation: normal PMI Rate: tachycardic Rhythm: regular rhythm Heart sounds: S1 normal heart sound present, S2 normal heart sound present, no click, no gallops, no murmurs and no rubs GI Auscultation: normal bowel sounds Skin General skin exam: no rashes or lesions noted Neuro General: no focal motor deficits Extrem General: Yes no clubbing, cyanosis or edema Office Procedures EKG Details: EKG shows normal sinus rhythm with rightward axis otherwise normal EKG [id number], Complete Assessment & Plan Assessment & Plan (1) Recurrent falls: Comment: behavioral, poorly controlled TICS, OCD Code(s): R29.6 - Repeated falls Category: Medical Plan: Recurrent falls, reported behavioral by the esthetician spa. There was no clear reported loss of consciousness during this episodes. Orthostatic hypotension could be possible although by measurements in his prison there has been no noted orthostatic hypotension. He is on medications that can potentially cause orthostasis. Seizure disorder is also likely. Does not have any significant tachycardia. At this point time no further therapy is recommended except for increase fluid and salt intake. Continue to monitor blood pressure at his prison facility. No further cardiac workup is indicated. Will follow if need be Coding Level of Care Code Est Pt Level 3 (05391) Complex EM visit Add On G2211 Diagnoses Recurrent falls R29.6 CPT Codes EKG - CPT: [id number], Complete ([id number])
--- OUTSIDE RECORDS SUMMARY | 2024-04-02 16:15 | XMS_ITS | Clinical Summary ---
Author Organization [facility] Address [phone] [place] [address] Care Team Providers Care Assembler Arranger Name Role Phone Luc Shelby MD Primary Care Provider [phone] Allergies Active Allergy Reactions Criticality Noted Date Comments Pseudoephedrine Hcl 10/27/2023 Medications Medication Sig Dispensed Refills Start Date End Date Status QUEtiapine (SEROQUEL) 200 MG tablet 10/11/2023 Active haloperidoL (HALDOL) 1 MG tablet 10/11/2023 Active fluvoxaMINE (LUVOX) 50 MG tablet 10/07/2023 Active divalproex (DEPAKOTE) [address] tablet 10/11/2023 Active clonazePAM (KLONOPIN) 0.5 MG tablet 10/20/2023 Active cholecalciferol (VITAMIN D3) 25 MCG (1,000 unit) tablet 10/24/2023 Activ e Active Problems No known active problems Social History Tobacco Use Types Packs/Day Years Used Date Smoking Tobacco: Never Assessed Education Answer Date Recorded Are you interested in more education? Not on tylor e 10/27/2023 Are you concerned about learning? Not on file 10/27/2023 No 10/27/2023 No 10/27/2023 Digital Access Answer Date Recorded No 10/27/2023 No 10/27/2023 Reliable internet access at home? Not on file 10/27/2023 Device with a working camera? Not on file Sex and Gender Information Value Date Recorded Sex Assigned at Not on file Gender Identity Not on file Sexual Orientation Not on file Last Filed Vital Signs Vital Sign Reading Time Taken Comments Blood Pressure 130/72 10/27/2023 1:54 PM EDT Pulse 107 10/27/2023 1:54 PM EDT Temperature 36.7 ??C (98 ??F) 10/27/2023 1:54 PM EDT Respiratory Rate 16 10/27/2023 1:54 PM EDT Oxygen Saturation 98% 10/27/2023 1:54 PM EDT Inhaled Oxygen Concentration - - Weight - - Height - - Body Mass Index - - Plan of Treatment Health Maintenance Due Date Last Done Comments LIPID PANEL 1985 VALPROIC ACID (DEPAKENE) LEVEL 1985 DEPRESSION SCREENING 1997 SMOKING Hx and SMOKELESS TOBACCO SCREENING 1998 HEPATITIS B SCREENING 2003 HEPATITIS C SCREENING 2003 HIV ONE-TIME SCREENING (18-65 YEARS) 2003 HEPATITIS B VACCINES (1 of 3 - 19+ 3-dose series) 2004 INFLUENZA VACCINE (#1) 2023 , 11/25/2021, 12/10/2020, Additional history exists COVID-19 VACCINE ( season) 2023 12/28/2020, 03/24/2020, 03/03/2020 Adult Td,Tdap Booster 05/09/2033 05/10/2023 HEPATITIS A VACCINES Aged Out No long er eligible based on patient's age to complete this topic HIB VACCINES Aged Out No longer eligi ble based on patient's age to complete this topic MENINGOCOCCAL VACCINES (ACWY) Aged Out No longer eligible based on patient's age to complete this topic PNEUMOCOCCAL VACCINES (0-49 years) Aged Out No longer eligible based on patient's age to complete this topic Medical Devices Not on file Care Teams Assembler Arranger Relationship Specialty Start Date End Date Luc Shelby MD [address] [place] [id number] PCP - General Internal Medicine 10/27/23 Additional Source Comments The information contained in this document represents components of the legal health record. It is not the complete legal health record.[facility]
== END 2024-04-02 14:39 | disposition home or self-care (01) ==
PROVIDERS: PCP Internal Medicine; Visit Provider Internal Medicine Cardiovascular Disease
DX: R29.6 Repeated falls (principal)
CPT/HCPCS: 93010; 99213; G2211

== ENCOUNTER → 2024-04-02 14:05 | Outpatient (BNVA) | payer OTHER, SELFPAY | PROVIDERS: PCP Internal Medicine; Visit Provider Internal Medicine Cardiovascular Disease | DX: R29.6 Repeated falls (principal); R00.0 Tachycardia, unspecified | CPT/HCPCS: 93005; 99212 ==

== ENCOUNTER 2024-05-11 10:37 | Outpatient (AMB) | payer OTHER, SELFPAY ==
--- NOTE | 2024-05-11 10:37 | A.OFFVIS_ITS ---
Vital Signs 05/11/24 10:39 Height 5 ft 10 in Weight 177 lb BMI 25.4 BP 110/74 Blood Pressure Location Rt brachial Position Sitting Pulse 120 H Pulse Source Pulse Oximeter Pulse Oximetry (%) 100 Oxygen Delivery Method Room Air Intake Visit Reasons: 3 mnts f/u Intake Note: Patient presents 3 month follow up for Recurrent falls Tire Maintenance Technician Required: No Allergies Naldecon Senior EX Allergy (Unknown, Verified 03/12/24 11:11) Unknown pseudoephedrine [Sudafed] Allergy (Unknown, Verified 03/12/24 11:11) Unknown triprolidine [From Actifed] Allergy (Unknown, Verified 03/12/24 11:11) Unknown HPI Comments Details: 38 y/o male patient presents for follow up visit for recurrent falls, OCD and Autism. PMH of developmental delay, OCD and Autism. Pt is accompanied by [facility] Staff and Nurse. He is non- verbal, staff reports no change in his behavioral TICS or falls, flicking his finger and grinding teeth, oral movements. Psychiatry increased his haloperidol to 0.5mg tid. His falls are more like drop attacks, propioception seeking behavior, likes loud music and hard high fives . It varies according to the staff and will fall with certain staff members and he falls a lot in the dining room, he usually sits down when he has no one there to catch him. He likes to fall going up the stairs, seeks motor/ sensory feedback. He likes a consistent routine, OCD behaviors, he also tends to slump down in the same location when he goes on walks . OT will come from community service within a month, doesn't do PT anymore. Per [facility] staffs, pt had the first fall in November 2022, and then he repeats this behavior daily. Pt had a CT of head in December in ER which was c/w evidence of mild hydrocephalus. Neuropsych- Recommended decrease depakote from 500mg BID to (250mg PO BID), with intend to switch to a different anti-elpileptic, monitor LFTS. Haoloperidol may decrease next time if his psychiatrist Dr. Amaya recommends this change. His diet is good, gets plenty of exercise with staff members, some unusual sleep behaviors with getting dressed in the middle of the night and getting ready to leave ot go outside, but that has since changed to normal sleep routine. PFSH Medical History Tic disorder Hydrocephalus Annual physical exam Urine incontinence Vitamin D deficiency Overweight (BMI 25.0-29.9) Seizure Obsessive compulsive disorder (or obsessive compulsive neurosis) Mental and behavioral problem Surgical History No pertinent past surgical history Social History Housing: Other Alcohol intake: never Patient Tobacco Use Status: Never used Tobacco e-Cigarette/Vaping Use: Never Used Second Hand Smoke Exposure: No service: No Current occupational status: disabled Cognitive needs: Yes (mental and behavioral problem) Hearing needs: No Vision needs: No Review of Systems Const All systems reviewed & are unremarkable except as noted in HPI and below Physical Exam Vital Signs: Last Vital Signs Pulse 120 H 05/11/24 10:39 BP 110/74 05/11/24 10:39 Pulse Ox 100 05/11/24 10:39 Oxygen Delivery Method Room Air 05/11/24 10:39 BMI result Body Mass Index 25.4 Const General: cooperative Nutritional Appearance: average body habitus HEENT Face and sinus: Yes face symmetric Neck Neck: Yes full ROM and Yes supple Neuro Other: Non verbal. Vocal TICS- teeth grinding Motor TICS - multiple TICS , tapping his foot , no perioral movements Cranial nerves: Yes Normal facial strength present, Yes Midline tongue present and Yes Ability to bilaterally rotate head present Psych Appearance: grossly normal Results Reviewed Results Reviewed: 03/2024 Labs: anemia and LFTs elevated today. Assessment & Plan Assessment & Plan (1) Recurrent falls: Comment: behavioral, poorly controlled TICS, OCD Code(s): R29.6 - Repeated falls Category: Medical (2) Tic disorder: Comment: poorly controlled Code(s): F95.9 - Tic disorder, unspecified Category: Medical (3) Autism: Comment: Continue to follow-up with psychiatry Code(s): F84.0 - Autistic disorder Category: Medical (4) Obsessive compulsive disorder (or obsessive compulsive neurosis): Code(s): F42.9 - Obsessive-compulsive disorder, unspecified Category: Medical Qualifiers: Obsessive-compulsive disorder type: mixed obsessional thoughts and acts Qualified Code(s): F42.2 - Mixed obsessional thoughts and acts (5) LFT elevation: Code(s): R79.89 - Other specified abnormal findings of blood chemistry Category: Medical (6) Anemia: Code(s): D64.9 - Anemia, unspecified Category: Medical Qualifiers: Anemia type: iron deficiency Iron deficiency anemia type: unspecified iron deficiency Qualified Code(s): D50.9 - Iron deficiency anemia, unspecified Plan Autism and OCD: Behavior management of TICS Anemia start Ferrous sulfate 325mg PO daily with a glass of orange juice. Decreased Haloperidol to 0.5mg tid for better control of TICS, per psychiatry to 0.5mg BID, Dr. Gonsalez Decreased Depakote from 500mg PO to BID to 250mg PO BID, per Neuro-pscyhiatry and PCP, monitor LFTs. Continue with socialization, puzzles, running/walking exercises as tolerated, non-verbal PT/OT services if available. Follow up in 1 month, call or message us on the portal as needed. Patient Instructions: Sleep Hygiene provided: set a scheduled bedtime and wake time to help regulate the circadian rhythm and balance the release of pituitary hormones. Sleep in a dark room, temperatures below 68 degrees, and no devices n bed. Limit caffeinated products 6 hours prior to bed, and limit fluids 2-4 hours prior to bed. Gentle night yoga, diffusing essential oils, and playing soft music can be relaxing. Monitor LFTs for changes, decreased Depakote 250mg PO BID. Haldol was decreased to 0.5mg PO BID during last visit will monitor. Anemia start Ferrous Sulfate 325mg daily at lunch with orange juice, hold if sto ols are hard or take every other day. Coding Level of Care Code Est Pt Level 4 (06664) Diagnoses Recurrent falls R29.6 Tic disorder F95.9 Autism F84.0 Mixed obsessional thoughts and acts F42.2 Obsessive-compulsive disorder type: mixed obsessional thoughts and acts LFT elevation R79.89 Iron deficiency anemia, unspecified iron deficiency anemia type D50.9 Anemia type: iron deficiency Iron deficiency anemia type: unspecified iron deficiency Time Spent (min) 30 Comment Baseline Tics and Autism
[2024-05-11 10:39] VITALS: BP 110/74; PULSE 120; O2SAT 100; BMI 25.4
--- OUTSIDE RECORDS SUMMARY | 2024-05-11 12:08 | XMS_ITS | Clinical Summary ---
Author Organization [facility] Address [address] [place] [id number] Phone Care Team Providers Care Gasket Maker Name Role Phone Luc Shelby MD Primary Care Provider Allergies Active Allergy Reactions Criticality Noted Date [...] 11/25/2021, 12/10/2020, Additional history exists COVID-19 VACCINE () 10/09/2023 12/28/2020, 03/24/2020, 03/03/2020 Adult Td,Tdap Booster 05/09/2033 [...] Medical Devices Not on file Care Teams Gasket Maker Relationship Specialty Start Date End Date Luc Shelby MD [address] [place] [id number] PCP - General Internal Medicine 10/27/23 Additional Source Comments The information contained in this document represents components of the legal health record. It is not the complete legal health record.[facility]
== END 2024-05-11 11:10 | disposition home or self-care (01) ==
LOC: HO.HSMS 10:37
PROVIDERS: PCP Internal Medicine; Visit Provider Physician Assistant Medical
DX: R29.6 Repeated falls (principal); F95.9 Tic disorder, unspecified; F84.0 Autistic disorder; F42.2 Mixed obsessional thoughts and acts; R79.89 Other specified abnormal findings of blood chemistry; D50.9 Iron deficiency anemia, unspecified
CPT/HCPCS: 99214

== ENCOUNTER → 2024-05-11 10:37 | Outpatient (BNVA) | payer OTHER, SELFPAY | PROVIDERS: PCP Internal Medicine; Visit Provider Physician Assistant Medical | DX: R29.6 Repeated falls (principal); F95.9 Tic disorder, unspecified; F84.0 Autistic disorder; F42.2 Mixed obsessional thoughts and acts; R79.89 Other specified abnormal findings of blood chemistry; D50.9 Iron deficiency anemia, unspecified | CPT/HCPCS: 99212 ==

== ENCOUNTER 2024-05-28 14:00 | Outpatient (AMB) | payer OTHER, SELFPAY ==
--- OUTSIDE RECORDS SUMMARY | 2024-05-28 14:02 | XMS_ITS | Clinical Summary ---
Author Organization [facility] Address [address] [place] [id number] Phone Care Team Providers Care Blocker And Sewer Name Role Phone Luc Shelby MD Primary Care Provider [phone] Allergies Active Allergy Reactions Criticality Noted Date [...] Medical Devices Not on file Care Teams Blocker And Sewer Relationship Specialty Start Date End Date Luc Shelby MD [address] [place] [id number] PCP - General Internal Medicine 10/27/23 Additional Source Comments The information contained in this document represents components of the legal health record. It is not the complete legal health record.[facility]
--- NOTE | 2024-05-28 14:03 | MHC.OFFWIV ---
Intake Vital Signs 05/28/24 14:49 Weight 177 lb BP 120/78 Blood Pressure Location Lt brachial Position Sitting Pulse 78 Pulse Source Pulse Oximeter Pulse Oximetry (%) 98 Oxygen Delivery Method Room Air Intake Visit Reasons: PE Bruise/ red spot on neck Intake Note: Patient here for bruishing and red spots on neck that was noticed yesterday. Patient Tobacco Use Status: Never used Tobacco Allergies Naldecon Senior EX Allergy (Unknown, Verified 05/28/24 14:48) Unknown pseudoephedrine [Sudafed] Allergy (Unknown, Verified 05/28/24 14:48) Unknown triprolidine [From Actifed] Allergy (Unknown, Verified 05/28/24 14:48) Unknown HPI HPI Comments History of Present Illness Details 39 y/o Male patient who is Non-verbal presents to the walk in clinic today accompanied by Care-takers with concern for Neck Bruises. Care-Takers report noticing Two Bruises on Patient's Neck yesterday. Pt Has h/o Falls due to TIC disorder and wears Helmet, Knee and Elbow Bumps for protection. Pt has h/o Anemia and currently followed by Hematology. [facility] Medical History (Updated 05/28/24 @ 15:08 by Tasha Capps NP) Bruise Tic disorder Hydrocephalus Annual physical exam Urine incontinence Vitamin D deficiency Overweight (BMI 25.0-29.9) Seizure Obsessive compulsive disorder (or obsessive compulsive neurosis) Mental and behavioral problem Surgical History No pertinent past surgical history Social History Housing: Other Alcohol intake: never Patient Tobacco Use Status: Never used Tobacco e-Cigarette/Vaping Use: Never Used Second Hand Smoke Exposure: No service: No Current occupational status: disabled Cognitive needs: Yes (mental and behavioral problem) Hearing needs: No Vision needs: No Review of Systems Const All systems reviewed & are unremarkable except as noted in HPI and below Physical Exam Vital Signs: Last Vital Signs Pulse 78 05/28/24 14:49 BP 120/78 05/28/24 14:49 Pulse Ox 98 05/28/24 14:49 Oxygen Delivery Method Room Air 05/28/24 14:49 Const General: no acute distress Nutritional Appearance: well nourished Limitations: behavioral limitations Neck Neck: Yes full ROM and Yes no lymphadenopathy Neck images: 1. Two large Bruises Left and Right Neck 2. Two large Bruises Left and Right Neck Skin Other: Blackish/Bluish Bruises Neck. General skin exam: ecchymosis and erythema Assessment & Plan Assessment & Plan (1) Bruise: Code(s): T14.8XXA - Other injury of unspecified body region, initial encounter Plan: Explained to Care-Takers that due to his Anemia, Patient will Bruise easily. Advised to get Seat Belt Cushion for Car rides. F/U with Engineering And Development Director and PCP. Coding Level of Care Code Est Pt Level 4 (13441) Diagnoses Bruise T14.8XXA Time Spent (min) 20
[2024-05-28 14:49] VITALS: BP 120/78; PULSE 78; O2SAT 98
== END 2024-05-28 15:10 | disposition home or self-care (01) ==
PROVIDERS: PCP Internal Medicine; Visit Provider Nurse Practitioner Family
DX: T14.8XXA Other injury of unspecified body region, initial encounter (principal)

== ENCOUNTER → 2024-05-28 14:00 | Outpatient (BNVA) | payer OTHER, SELFPAY | PROVIDERS: PCP Internal Medicine; Visit Provider Nurse Practitioner Family | DX: S10.93XA Contusion of unspecified part of neck, initial encounter (principal); X58.XXXA Exposure to other specified factors, initial encounter; Y93.9 Activity, unspecified; Y92.9 Unspecified place or not applicable; Y99.9 Unspecified external cause status | CPT/HCPCS: 99212 ==

== ENCOUNTER 2024-05-29 12:40 | Outpatient (AMB) | payer OTHER, SELFPAY ==
[2024-05-29 12:43] VITALS: BMI 25.1
--- NOTE | 2024-05-29 12:43 | MHC.OFFVIS ---
Vital Signs 05/29/24 12:43 Height 5 ft 10 in Weight 175 lb BMI 25.1 Comment Patient unable to stand still to check blood pressure. Intake Visit Reasons: abnormal findings of blood chemistry Intake Note: New patient in office today for abnormal findings of blood chemistry. CC: Patient with nursing home staff who states that the patient labs came back showing he had high liver enzymes and probably anemia. [employer] Required: No Accompanied by: Employee Allergies Naldecon Senior EX Allergy (Unknown, Verified 05/29/24 12:48) Unknown pseudoephedrine [Sudafed] Allergy (Unknown, Verified 05/29/24 12:48) Unknown triprolidine [From Actifed] Allergy (Unknown, Verified 05/29/24 12:48) Unknown HPI HPI abnormal findings of blood chemistry: Details: 39-year-old male here for initial evaluation of transaminitis. He is referred by Luc Shelby. PMX Seizure disorder Behavioral take Autism with OCD Urinary incontinence Recurrent falls Vertigo History of hydrocephalus * SURGICAL HISTORY * ALLERGIES Sudafed Actifed * [employer] LABS: Laboratory Tests 02/14/24 03/12/24 08:53 11:14 WBC 2.9 L RBC 4.59 L Hgb 13.2 L Hct 39.6 L MCV 86.3 MCH 28.8 Plt Count 169 125 L D Estimated GFR > 60 Total Bilirubin 0.3 AST 45 H ALT 55 H Alkaline Phosphatase 110 TSH 2.28 Free T4 0.92 Laboratory Tests 03/29/23 15:19 Hep Bs Antigen Negative Hep Bs Antibody REACTIVE Hep B Core Total Ab Nonreactive Hepatitis C Ab (EIA) Nonreactive ULTRASOUND OF THE ABDOMEN 04/15/2027 FINDINGS: PANCREAS: The pancreas is obscured by bowel gas. ABDOMINAL AORTA: The proximal and distal abdominal aorta are normal caliber. The mid abdominal aorta is obscured by bowel gas. INFERIOR VENA CAVA: Visualized portions are normal. LIVER: Normal. The liver is normal in size. The liver contour is normal. Parenchymal echogenicity is normal. No focal hepatic lesion. There is no intrahepatic biliary duct dilatation seen. GALLBLADDER: Normal. The gallbladder is physiologically distended without evidence of stones, sludge, polyps, wall thickening or pericholecystic fluid. COMMON BILE DUCT: The common bile duct is obscured by bowel gas. RIGHT KIDNEY: Normal. No hydronephrosis. No renal calculi or focal parenchymal lesions. The kidney measures 12.5 cm in maximum dimension. LEFT KIDNEY: Normal. No hydronephrosis. No renal calculi or focal parenchymal lesions. The kidney measures 13.8 cm in maximum dimension. SPLEEN: Normal. The spleen measures 8.8 cm in maximum dimension. FREE FLUID: None. US/US abdomen complete IMPRESSION: 1. No abnormality demonstrated. 2. The pancreas, common bile duct and mid abdominal aorta are obscured by bowel gas. TODAY'S VISIT He is here today with the director of group counseling program who provides the entire history as the patient is autistic and nonverbal. Recent decrease all med inc depakote r/t falling, so will repeat but likely all r/t depakote s/e. No FHX liver disease. Not obese. We will rule out autoimmune liver disease and any other causes. The patient is also not diabetic. ROV next available. [facility] Medical History (Updated 05/29/24 @ 13:11 by MABEL Floyd) Tachycardia COVID-19 virus infection Left knee pain Annual physical exam LFT elevation Weight loss Abrasion head Hypernatremia Knee abrasion Vertigo of central origin Laceration of head Black eye of left side Lip laceration Bruise Tic disorder Hydrocephalus Urine incontinence Vitamin D deficiency Overweight (BMI 25.0-29.9) Seizure Obsessive compulsive disorder (or obsessive compulsive neurosis) Mental and behavioral problem Surgical History No pertinent past surgical history Social History Housing: Other Alcohol intake: never Patient Tobacco Use Status: Never used Tobacco e-Cigarette/Vaping Use: Never Used Second Hand Smoke Exposure: No service: No Current occupational status: disabled Cognitive needs: Yes (mental and behavioral problem) Hearing needs: No Vision needs: No Review of Systems Const Denies fatigue, Denies fever(s), Reports frequent falls, Denies night sweats, Denies poor appetite and Denies weight loss ENT Reports Normal hearing present, Denies dental pain, Denies dysphagia, Denies hearing loss, Denies mouth pain, Denies odynophagia, Denies throat swelling, Denies tongue swelling and Reports other (Dentition adequate) Card Reports syncope Resp Reports no additional complaints GI Details: Denies abdominal pain, Denies melena, Denies bloating, Denies hematochezia, Denies constipation, Denies GI cramping, Denies dysphagia, Denies excessive flatus, Denies early satiety, Denies heartburn, Denies diarrhea, Denies nausea, Denies odynophagia, Denies vomiting and Denies hematemesis Skin/Breast Denies pruritus, Denies lesions, Denies rash and Denies jaundice Neuro Reports Normal hearing present, Denies Abnormal speech present, Reports syncope and Reports frequent falls Endo Denies fatigue Aller/Immun Denies throat swelling and Denies tongue swelling Physical Exam Vital Signs: BMI result Body Mass Index 25.1 Const General: cooperative, no acute distress, well developed and well groomed Nutritional Appearance: average body habitus and well nourished Orientation/consciousness: oriented to person, oriented to place and oriented to time Limitations: behavioral limitations, No language barrier and other limitations HEENT Other: Wearing a helmet Head: Yes normocephalic and Yes atraumatic Eyes General: appearance normal, both eyes and all related structures Pupils: Equal, round and reactive pupils present Neck Neck: Yes normal visual inspection and Yes no lymphadenopathy Thyroid: Thyroid normal Resp Effort & Inspection: normal respiratory effort and able to speak in complete sentences Auscultation: clear to auscultation bilaterally Cardio Rate: regular rate Rhythm: regular rhythm Heart sounds: Normal, physiologic split S2 sound present Peripheral pulses: radial pulses present and posterior tibial pulses present GI Inspection: No distended and No Abdominal panniculus present Palpation (GI): Soft to palpation, nontender, no guarding, not rigid and No hepatosplenomegaly present Percussion: Yes normal to percussion Auscultation: normal bowel sounds Rectal Exam - Male: Yes deferred Skin General skin exam: no rashes or lesions noted, turgor normal, skin not dry, no jaundice, No spider nevi and no striae Rashes: no rashes Nails: normal Neuro General: oriented to person, oriented to place and oriented to time Cranial nerves: Yes Equal, round and reactive pupils present and Yes Normal hearing present Speech: No Abnormal speech present Extrem General: Yes normal to inspection, No clubbing, No cyanosis and No edema Psych Appearance: grossly normal and well kempt Mental Status: other Speech and movement: Mute speech present (Except for bye ) Affect: normal affect Attitude: cooperative Thought process: Other thought process findings present Thought content: other Insight: Poor insight present (Psych) Judgement: Poor judgement present (Psych) Assessment & Plan Assessment & Plan (1) Transaminitis: Code(s): R74.01 - Elevation of levels of liver transaminase levels Category: Medical (2) Thrombocytopenia: Code(s): D69.6 - Thrombocytopenia, unspecified Category: Medical (3) Medication adverse effect: Comment: THROMBOCYTOPENIA AND HEPATOTOXICITY ARE, ALONG WITH HYPERAMMONEMIA WITH DEPAKOTE THERAPY Code(s): T50.905A - Adverse effect of unspecified drugs, medicaments and biological substances, initial encounter Category: Medical Plan He is here today with the director of group counseling program who provides the entire history as the patient is autistic and nonverbal. Recent decrease all med inc depakote r/t falling, so will repeat but likely all r/t depakote s/e. No FHX liver disease. Not obese. Apparently this was all performed after a multidisciplinary provider review of his medications. We will rule out autoimmune liver disease and any other causes. The patient is also not diabetic. ROV next available. Orders: Orders Ferritin Today R74.01 - Elevation of levels of liver transaminase levels Mitochondrial Antibody Today R74.01 - Elevation of levels of liver transaminase levels HIV Ab/Ag Today R74.01 - Elevation of levels of liver transaminase levels Alpha Fetoprotein Today R74.01 - Elevation of levels of liver transaminase levels SALMA Reflex Titer and Pattern Today R74.01 - Elevation of levels of liver transaminase levels Liver Fibrosis Pnl Today R74.01 - Elevation of levels of liver transaminase levels Smooth Muscle Antibody Today R74.01 - Elevation of levels of liver transaminase levels Ammonia Today D69.6 - Thrombocytopenia, unspecified, R74.01 - Elevation of levels of liver transaminase levels, T50.905A - Adverse effect of unspecified drugs, medicaments and biological substances, initial encounter Liver Panel Today D69.6 - Thrombocytopenia, unspecified, R74.01 - Elevation of levels of liver transaminase levels Coding Level of Care Code New Pt Level 3 (57906) Diagnoses Transaminitis R74.01 Thrombocytopenia D69.6 Medication adverse effect T50.363F
--- OUTSIDE RECORDS SUMMARY | 2024-05-29 15:03 | XMS_ITS | Clinical Summary ---
Author Organization [facility] Address [address] [place] [phone] Phone Care Team Providers Care Furniture Upholstery Mechanic Name Role Phone Luc Shelby MD Primary Care Provider [phone] Allergies Active Allergy Reactions Criticality Noted Date [...] Medical Devices Not on file Care Teams Furniture Upholstery Mechanic Relationship Specialty Start Date End Date Luc Shelby MD [address] [place] [phone] PCP - General Internal Medicine 10/27/23 Additional Source Comments The information contained in this document represents components of the legal health record. It is not the complete legal health record.[facility]
== END 2024-05-29 13:21 | disposition home or self-care (01) ==
LOC: HO.HGI 12:40
PROVIDERS: PCP Internal Medicine; Visit Provider Nurse Practitioner
DX: R74.01 Elevation of levels of liver transaminase levels (principal); D69.6 Thrombocytopenia, unspecified; T50.905A Adverse effect of unspecified drugs, medicaments and biological substances, initial encounter
CPT/HCPCS: 99203

== ENCOUNTER → 2024-05-29 12:40 | Outpatient (BNVA) | payer OTHER, SELFPAY | PROVIDERS: PCP Internal Medicine; Visit Provider Nurse Practitioner | DX: R74.01 Elevation of levels of liver transaminase levels (principal); D69.6 Thrombocytopenia, unspecified; T50.905A Adverse effect of unspecified drugs, medicaments and biological substances, initial encounter; X58.XXXA Exposure to other specified factors, initial encounter; Y93.9 Activity, unspecified; Y92.9 Unspecified place or not applicable; Y99.9 Unspecified external cause status | CPT/HCPCS: 99202 ==

== ENCOUNTER 2024-07-20 09:01 | Outpatient (REF) | payer OTHER, SELFPAY ==
[2024-07-20 13:59] LABS: Ammonia 60 umol/L (13-55)
[2024-07-20 14:19] LABS: Alanine Aminotransferase 51 U/L (0-40); Albumin Level 4.7 g/dL (3.5-5.0); Alkaline Phosphatase 135 U/L (39-117); Aspartate Amino Transferase 27 U/L (5-37); Bilirubin Direct 0.1 mg/dL (0.0-0.5); Bilirubin Total 0.3 mg/dL (0.0-1.0)
[2024-07-20 14:30] LABS: Ferritin 261 ng/mL (20-250)
[2024-07-23 04:34] LABS: HIV AB/AG Nonreactive (Nonreactive); HIV Num 1 0.07 S/CO (0.00-0.99)
[2024-07-23 12:43] LABS: Alpha Fetoprotein 2.3 ng/mL (<6.1)
[2024-07-24 11:38] LABS: Mitochondrial Antibodies NEGATIVE (NEGATIVE)
[2024-07-24 16:28] LABS: Anti Nuclear Antibody Screen NEGATIVE (NEGATIVE)
[2024-07-25 09:19] LABS: Smooth Muscle Antibody <20 U (<20)
[2024-07-28 18:12] LABS: FIB-ALT 34 U/L (9-46); FIB-Alpha-2-Macroglobulin 104 mg/dL (106-279); FIB-Apolipoprotein A1 158 mg/dL (94-176); FIB-GGT 261 U/L (3-90); FIB-Haptoglobin 134 mg/dL (43-212); FIB-Total Bilirubin 0.3 mg/dL (0.2-1.2); Liver Fibrosis Score 0.08; Liver Fibrosis Stage F0; Nec Inflam Act Grade A0; Nec Inflam Act Score 0.13
== END 2024-07-20 09:02 | disposition home or self-care (01) ==
LOC: HO.LAB 09:01
PROVIDERS: Nurse Practitioner; PCP Internal Medicine; Visit Provider Physician Assistant Medical
DX: R74.01 Elevation of levels of liver transaminase levels (principal); D69.6 Thrombocytopenia, unspecified; T50.905A Adverse effect of unspecified drugs, medicaments and biological substances, initial encounter; R26.9 Unspecified abnormalities of gait and mobility; F95.9 Tic disorder, unspecified; F84.0 Autistic disorder; F42.2 Mixed obsessional thoughts and acts; R79.89 Other specified abnormal findings of blood chemistry; Z11.4 Encounter for screening for human immunodeficiency virus [HIV]
CPT/HCPCS: 36415; 80076; 81596; 82105; 82140; 82728; 86015; 86038; 86381; 87389; 99212

== ENCOUNTER 2024-07-20 09:01 | Outpatient (AMB) | payer OTHER, SELFPAY ==
--- NOTE | 2024-07-20 09:13 | MHC.OFFVIS ---
Vital Signs 07/20/24 09:14 Height 5 ft 10 in Weight 173 lb 4 oz BMI 24.9 Pulse 133 H Pulse Source Pulse Oximeter Pulse Oximetry (%) 98 Oxygen Delivery Method Room Air Intake Visit Reasons: urgent follow up Intake Note: Patient presents follow up Tics. Accompanied by: Other Relationship Allergies Naldecon Senior EX Allergy (Unknown, Verified 07/20/24 09:17) Unknown pseudoephedrine [Sudafed] Allergy (Unknown, Verified 07/20/24 09:17) Unknown triprolidine [From Actifed] Allergy (Unknown, Verified 07/20/24 09:17) Unknown HPI Comments Details: 39 y/o male patient presents for follow up visit for recurrent falls, Tics, OCD and Autism. Pt is accompanied by Senior Care Staff and Nurse. Denies any seizure activity will continue on Depakote 500mg PO BID. His Neuro-pscyhe recommends changing to a different anti-epileptic and decreasing Depakote to 250mg PO BID. Will continue to monitor LFTS, recently ordered by his pcp on 05/2024. H/O developmental delay, TIC disorder, OCD and Autism. He is non-verbal, staff reports no change in his behavioral TICS or falls, he flicks his finger and grinds teeth, makes oral movements and grunting noises. His falls started in Nov 2022 and are more like drop attacks, propioception seeking behavior, likes loud music and hard high fives , will watch movies and likes to swim. He does not like hikes anymore. His falls vary according to staff, he likes to fall alot in the dining room. He will sit down if no one is there to catch him, will fall on the stairs going up, he seeks and likes motor/ sensory feedback. He likes a consistent routine, OCD behavior, he also tends to slump down in the same location when he goes on walks . OT will come from community service within a month, doesn't do PT anymore. Pt had a CT of head in December 2023 and was c/w evidence of mild hydrocephalus. His diet is good, gets plenty of exercise with staff members, sleep is improved, needs help with getting dressed. Per Psychiatry, Dr. Amaya has decreased Haloperidol to 0.5mg PO BID. [facility] Medical History Tachycardia COVID-19 virus infection Left knee pain Annual physical exam LFT elevation Weight loss Abrasion head Hypernatremia Knee abrasion Vertigo of central origin Laceration of head Black eye of left side Lip laceration Bruise Tic disorder Hydrocephalus Urine incontinence Vitamin D deficiency Overweight (BMI 25.0-29.9) Seizure Obsessive compulsive disorder (or obsessive compulsive neurosis) Mental and behavioral problem Surgical History No pertinent past surgical history Social History Housing: Other Alcohol intake: never Patient Tobacco Use Status: Never used Tobacco e-Cigarette/Vaping Use: Never Used Second Hand Smoke Exposure: No service: No Current occupational status: disabled Cognitive needs: Yes (mental and behavioral problem) Hearing needs: No Vision needs: No Physical Exam Vital Signs: Last Vital Signs Pulse 133 H 07/20/24 09:14 Pulse Ox 98 07/20/24 09:14 Oxygen Delivery Method Room Air 07/20/24 09:14 BMI result Body Mass Index 24.9 Const General: cooperative Nutritional Appearance: average body habitus HEENT Face and sinus: Yes face symmetric Neck Neck: Yes full ROM and Yes supple Neuro Other: Non verbal. Grunts loudly, makes noises. Vocal TICS- teeth grinding Motor TICS - multiple TICS , tapping his foot , no mikaela-oral movements. Cranial nerves: Yes Normal facial strength present and Yes Ability to bilaterally rotate head present Psych Appearance: grossly normal Results Reviewed Results Reviewed: 03/2024 Labs: anemia and LFTs elevated today. Assessment & Plan Assessment & Plan (1) Recurrent falls: Comment: behavioral, poorly controlled TICS, OCD Code(s): R29.6 - Repeated falls Category: Medical (2) Tic disorder: Comment: poorly controlled Code(s): F95.9 - Tic disorder, unspecified Category: Medical (3) Autism: Comment: Continue to follow-up with psychiatry Code(s): F84.0 - Autistic disorder Category: Medical (4) Obsessive compulsive disorder (or obsessive compulsive neurosis): Code(s): F42.9 - Obsessive-compulsive disorder, unspecified Category: Medical Qualifiers: Obsessive-compulsive disorder type: mixed obsessional thoughts and acts Qualified Code(s): F42.2 - Mixed obsessional thoughts and acts (5) LFT elevation: Code(s): R79.89 - Other specified abnormal findings of blood chemistry Category: Medical Plan Autism and OCD: Behavior management of TICS Continue start Ferrous sulfate 325mg PO daily with a glass of orange juice. Decreased Haloperidol to 0.5mg tid for better control of TICS, per psychiatry to 0.5mg BID, Dr. Gonsalez Continue Depakote from 500mg PO BID, and monitor LFTs per pcp. Continue with socialization, puzzles, running/walking exercises as tolerated, non-verbal PT/OT services if available. Follow up in 3months, call or message us on the portal as needed. Patient Instructions: Sleep Hygiene provided: set a scheduled bedtime and wake time to help regulate the circadian rhythm and balance the release of pituitary hormones. Sleep in a dark room, temperatures below 68 degrees, and no devices n bed. Limit caffeinated products 6 hours prior to bed, and limit fluids 2-4 hours prior to bed. Gentle night yoga, diffusing essential oils, and playing soft music can be relaxing. Coding Level of Care Code Est Pt Level 4 (33633) Diagnoses Recurrent falls R29.6 Tic disorder F95.9 Autism F84.0 Mixed obsessional thoughts and acts F42.2 Obsessive-compulsive disorder type: mixed obsessional thoughts and acts LFT elevation R79.89 Time Spent (min) 20 Comment Baseline
[2024-07-20 09:14] VITALS: PULSE 133; O2SAT 98; BMI 24.9
== END 2024-07-20 09:49 | disposition home or self-care (01) ==
LOC: HO.HSMS 09:02
PROVIDERS: PCP Internal Medicine; Visit Provider Physician Assistant Medical
DX: R29.6 Repeated falls (principal); F95.9 Tic disorder, unspecified; F84.0 Autistic disorder; F42.2 Mixed obsessional thoughts and acts; R79.89 Other specified abnormal findings of blood chemistry
CPT/HCPCS: 99214

== ENCOUNTER 2024-09-05 14:25 | Outpatient (AMB) | payer OTHER, SELFPAY ==
[2024-09-05 14:31] VITALS: BP 147/81; BMI 24.4
--- NOTE | 2024-09-05 14:31 | A.OFFVIS_ITS ---
Vital Signs 09/05/24 14:31 Height 5 ft 10 in Weight 169 lb 12.095 oz BMI 24.4 BP 147/81 H Blood Pressure Location Lt brachial Position Sitting Intake Visit Reasons: Transaminitis mgmt. CHECK LABS. Intake Note: Bro returns to office in follow up for lab results and transaminitis manage ment. CC: Patient with [facility] long term staff. He denies patient complaining of pain. 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 CHECK LABS.: Details: Assessment & Plan (1) Transaminitis: Code(s): R74.01 - Elevation of levels of liver transaminase levels Category: Medical (2) Thrombocytopenia: Code(s): D69.6 - Thrombocytopenia, unspecified Category: Medical (3) Medication adverse effect: Comment: THROMBOCYTOPENIA AND HEPATOTOXICITY ARE, ALONG WITH HYPERAMMONEMIA WITH DEPAKOTE THERAPY Code(s): T50.905A - Adverse effect of unspecified drugs, medicaments and biological substances, initial encounter Category: Medical Plan He is here today with the group product manager who provides the entire history as the patient is autistic and nonverbal. Recent decrease all med inc depakote r/t falling, so will repeat but likely all r/t depakote s/e. No FHX liver disease. Not obese. Apparently this was all performed after a multidisciplinary provider review of his medications. We will rule out autoimmune liver disease and any other causes. The patient is also not diabetic. ROV next available. Orders: Orders Ferritin Today R74.01 - Elevation of levels of liver transaminase levels Mitochondrial Antibody Today R74.01 - Elevation of levels of liver transaminase levels HIV Ab/Ag Today R74.01 - Elevation of levels of liver transaminase levels Alpha Fetoprotein Today R74.01 - Elevation of levels of liver transaminase levels SALMA Reflex Titer and Pattern Today R74.01 - Elevation of levels of liver transaminase levels Liver Fibrosis Pnl Today R74.01 - Elevation of levels of liver transaminase levels Smooth Muscle Antibody Today R74.01 - Elevation of levels of liver transaminase levels Ammonia Today D69.6 - Thrombocytopenia, unspecified, R74.01 - Elevation of levels of liver transaminase levels, T50.905A - Adverse effect of unspecified drugs, medicaments and biological substances, initial encounter Liver Panel Today D69.6 - Thrombocytopenia, unspecified, R74.01 - Elevation of levels of liver transaminase level LABS: Laboratory Tests 03/12/24 06/12/24 07/20/24 11:14 16:32 13:47 Plt Count 125 L D 186 D Ferritin 261 H Total Bilirubin 0.3 0.3 Direct Bilirubin 0.1 AST 33 27 ALT 66 H 51 H Alkaline Phosphatase 149 H 135 H Liver Fibrosis Stage F0 Ammonia 60 H Alpha Fetoprotein 2.3 SALMA Screen NEGATIVE Anti-Mitochondrial Ab NEGATIVE Anti-Smooth Muscle Ab <20 HIV 1&2 Ab/P24 Ag 4thGn Nonreactive TODAY'S VISIT Patient is here with a member of his long term. The labs do not show any autoimmune or infectious process. Mildly elevated ferritin likely secondary to liver disease. He also has a mildly elevated ammonia which will bear watching. His staff was educated about behavioral changes and should he start to manifest any confusion, lethargy or even more agitated behavior to notify the office and we may consider Xifaxan therapy. The patient's baseline autism makes this a little difficult to assess. This appears to be metabolic fatty liver with superimposed drug insult via Depakote. I think for now we will simply monitor him at six-month intervals. Of course we could clarify this with a liver biopsy but given the patient's behavioral issues this could be extremely difficult as he would require complete sedation. Return office visit in 6 months [facility] Medical History (Reviewed 09/05/24 @ 14:43 by Eloisa Harley, [facility]) Tachycardia COVID-19 virus infection Left knee pain Annual physical exam LFT elevation Weight loss Abrasion head Hypernatremia Knee abrasion Vertigo of central origin Laceration of head Black eye of left side Lip laceration Bruise Tic disorder Hydrocephalus Urine incontinence Vitamin D deficiency Overweight (BMI 25.0-29.9) Seizure Obsessive compulsive disorder (or obsessive compulsive neurosis) Mental and behavioral problem Surgical History No pertinent past surgical history Social History Housing: Other Alcohol intake: never Patient Tobacco Use Status: Never used Tobacco e-Cigarette/Vaping Use: Never Used Second Hand Smoke Exposure: No service: No Current occupational status: disabled Cognitive needs: Yes (mental and behavioral problem) Hearing needs: No Vision needs: No Review of Systems Const Denies fatigue, Denies fever(s), Denies night sweats, Denies poor appetite and Denies weight loss ENT Reports Normal hearing present, Denies dental pain, Denies dysphagia, Denies hearing loss, Denies mouth pain, Denies odynophagia, Denies throat swelling, Denies tongue swelling and Reports other (Dentition adequate) Card Reports no additional complaints Resp Reports no additional complaints GI Details: Denies abdominal pain, Denies melena, Denies bloating, Denies hematochezia, Denies constipation, Denies GI cramping, Denies dysphagia, Denies excessive fla tus, Denies early satiety, Denies heartburn, Denies diarrhea, Denies nausea, Denies odynophagia, Denies vomiting and Denies hematemesis Skin/Breast Denies pruritus, Denies lesions, Denies rash and Denies jaundice Neuro Reports Normal hearing present and Denies Abnormal speech present Psych Reports mood swings Endo Denies fatigue Aller/Immun Denies throat swelling and Denies tongue swelling Physical Exam Vital Signs: Last Vital Signs BP 147/81 H 09/05/24 14:31 BMI result Body Mass Index 24.4 Const General: cooperative, no acute distress, well developed and well groomed Nutritional Appearance: well nourished and obese centrally obese Orientation/consciousness: oriented to person, oriented to place and oriented to time Limitations: behavioral limitations, language barrier and other limitations HEENT Head: Yes normocephalic and Yes atraumatic Eyes General: appearance normal, both eyes and all related structures Pupils: Equal, round and reactive pupils present Neck Neck: Yes normal visual inspection and Yes no lymphadenopathy Thyroid: Thyroid normal Resp Effort & Inspection: normal respiratory effort and able to speak in complete sentences Auscultation: clear to auscultation bilaterally Cardio Rate: regular rate Rhythm: regular rhythm Heart sounds: Normal, physiologic split S2 sound present Peripheral pulses: radial pulses present and posterior tibial pulses present GI Inspection: No distended and No Abdominal panniculus present Palpation (GI): Soft to palpation, nontender, no guarding, not rigid and No hepatosplenomegaly present Percussion: Yes normal to percussion Auscultation: normal bowel sounds Rectal Exam - Male: Yes deferred Skin General skin exam: no rashes or lesions noted, turgor normal, skin not dry, no jaundice, No spider nevi and no striae Rashes: no rashes Nails: normal Neuro General: oriented to person, oriented to place and oriented to time Cranial nerves: Yes Equal, round and reactive pupils present and Yes Normal hearing present Speech: No Abnormal speech present Extrem General: Yes normal to inspection, No clubbing, No cyanosis and No edema Psych Appearance: grossly normal and well kempt Mental Status: other Speech and movement: Normal speech and movement present Affect: normal affect Attitude: cooperative Thought process: not confabulating and Other thought process findings present Thought content: other Insight: Poor insight present (Psych) Judgement: Poor judgement present (Psych) Results Reviewed Results Reviewed: Laboratory Tests 03/12/24 06/12/24 07/20/24 11:14 16:32 13:47 Plt Count 125 L D 186 D Ferritin 261 H Total Bilirubin 0.3 0.3 Direct Bilirubin 0.1 AST 33 27 ALT 66 H 51 H Alkaline Phosphatase 149 H 135 H Liver Fibrosis Stage F0 Ammonia 60 H Alpha Fetoprotein 2.3 SALMA Screen NEGATIVE Anti-Mitochondrial Ab NEGATIVE Anti-Smooth Muscle Ab <20 HIV 1&2 Ab/P24 Ag 4thGn Nonreactiv Assessment & Plan Assessment & Plan (1) Transaminitis: Comment: BASELINE LABS 02/14/24 03/12/24 08:53 11:14 WBC 2.9 L RBC 4.59 L Hgb 13.2 L Hct 39.6 L MCV 86.3 MCH 28.8 Plt Count 169 125 L D Estimated GFR > 60 Total Bilirubin 0.3 AST 45 H ALT 55 H Alkaline Phosphatase 110 TSH 2.28 Free T4 0.92 03/29/23 15:19 Hep Bs Antigen Negative Hep Bs Antibody REACTIVE Hep B Core Total Ab Nonreactive Hepatitis C Ab (EIA) Nonreactive 03/12/2504/07/2505 11:1416:3213:47 Plt Count 125 L D 186 D Ferritin 261 H Total Bilirubin 0.3 0.3 Direct Bilirubin 0.1 AST 33 27 ALT 66 H 51 H Alkaline Phosphatase 149 H 135 H Liver Fibrosis Stage F0 Ammonia 60 H Alpha Fetoprotein 2.3 SALMA Screen NEGATIVE Anti-Mitochondrial Ab NEGATIVE Anti-Smooth Muscle Ab <20 HIV 1&2 Ab/P24 Ag 4thGn Nonreactive CURRENT LABS ULTRASOUND OF THE ABDOMEN 04/15/2027 FINDINGS: PANCREAS: The pancreas is obscured by bowel gas. ABDOMINAL AORTA: The proximal and distal abdominal aorta are normal caliber. The mid abdominal aorta is obscured by bowel gas. INFERIOR VENA CAVA: Visualized portions are normal. LIVER: Normal. The liver is normal in size. The liver contour is normal. Parenchymal echogenicity is normal. No focal hepatic lesion. There is no intrahepatic biliary duct dilatation seen. GALLBLADDER: Normal. The gallbladder is physiologically distended without evidence of stones, sludge, polyps, wall thickening or pericholecystic fluid. COMMON BILE DUCT: The common bile duct is obscured by bowel gas. RIGHT KIDNEY: Normal. No hydronephrosis. No renal calculi or focal parenchymal lesions. The kidney measures 12.5 cm in maximum dimension. LEFT KIDNEY: Normal. No hydronephrosis. No renal calculi or focal parenchymal lesions. The kidney measures 13.8 cm in maximum dimension. SPLEEN: Normal. The spleen measures 8.8 cm in maximum dimension. FREE FLUID: None. US/US abdomen complete IMPRESSION: 1. No abnormality demonstrated. 2. The pancreas, common bile duct and mid abdominal aorta are obscured by bowel gas. Code(s): R74.01 - Elevation of levels of liver transaminase levels Category: Medical Plan Patient is here with a member of his long term. The labs do not show any autoimmune or infectious process. Mildly elevated ferritin likely secondary to liver disease. He also has a mildly elevated ammonia which will bear watching. His staff was educated about behavioral changes and should he start to manifest any confusion, lethargy or even more agitated behavior to notify the office and we may consider Xifaxan therapy. The patient's baseline autism makes this a little difficult to assess. This appears to be metabolic fatty liver with superimposed drug insult via Depakote. I think for now we will simply monitor him at six-month intervals. Of course we could clarify this with a liver biopsy but given the patient's behavioral issues this could be extremely difficult as he would require complete sedation. Return office visit in 6 months Coding Level of Care Code Est Pt Level 3 (42238) Diagnoses Transaminitis R74.01
--- OUTSIDE RECORDS SUMMARY | 2024-09-05 15:07 | XMS_ITS | Clinical Summary ---
Author Organization [facility] Address [address] [place] [phone] Phone Care Team Providers Care Curtain Hemmer Automatic Name Role Phone Luc Shelby MD Primary Care Provider [phone] Allergies Active Allergy Reactions Criticality Noted Date Comments Pseudoephedrine Hcl 10/27/2023 Medications QUEtiapine (SEROQUEL) 200 MG tablet 10/11/2023 Active haloperidoL (HALDOL) 1 MG tablet 10/11/2023 Active fluvoxaMINE (LUVOX) 50 MG tablet 10/07/2023 Active divalproex (DEPAKOTE) [address] tablet 10/11/2023 Active clonazePAM (KLONOPIN) 0.5 MG tablet 10/20/2023 Active cholecalciferol (VITAMIN D3) 25 MCG (1,000 unit) tablet 10/24/2023 Active Active Problems No known active problems Social [...] Recorded Sex Assigned at Not on file Legal Sex Male 1:21 PM EDT Gender Identity Not on file Sexual Orientation Not on file Last Filed Vital Signs Vital Sign Reading Time Taken Comments Blood Pressure 130/72 10/27/2023 1:54 PM EDT Pulse 107 10/27/2023 1:54 PM EDT Temperature 36.7 C (98 F) 10/27/2023 1:54 PM EDT Respiratory Rate 16 10/27/2023 1:54 PM EDT Oxygen Saturation 98% 10/27/2023 1:54 PM EDT Inhaled Oxygen Concentration - - Weight - - Height - - Body Mass Index - - Plan of Treatment Health Maintenance Due Date Last Done Comments LIPID PANEL 1985 VALPROIC ACID (DEPAKENE) LEVEL 1985 DEPRESSION SCREENING 1997 SMOKING Hx and SMOKELESS TOBACCO SCREENING 1998 HEPATITIS C SCREENING 2003 HIV ONE-TIME SCREENING (18-6 5 YEARS) 2003 COVID-19 VACCINE (2023-2 5 season) 2023 12/28/2020, 03/24/2020, 03/03/2020 Adult Td,Tdap Booster 05/09/2033 05/10/2023 HEPATITIS A VACCINES Aged Out No long er eligible based on patient's age to complete this topic HIB VACCINES Aged Out No longer eligi ble based on patient's age to complete this topic MENINGOCOCCAL VACCINES (ACWY) Aged Out No longer eligible based on patient's age to complete this topic MENINGOCOCCAL VACCINES (B) Aged Out N o longer eligible based on patient's age to complete this topic PNEUMOCOCCAL VACCINES (0-49 years) Aged Out No longer eligible b ased on patient's age to complete this topic Medical Devices Not on file Insurance [facility] [place] [address] [address] [facility] [place] [address] [place] [address] [place] [address] [facility] Address: [address] [address] [place] [address] [facility] E[facility] Care Teams Curtain Hemmer Automatic Relationship Specialty Start Date End Date Luc Shelby MD [address] [place] [address] Drive [address] [place] [id number] PCP - General Internal Medicine 10/27/23 Additional Source Comments The information contained in this document represents components of the legal health record. It is not the complete legal health record.[facility]
== END 2024-09-05 15:05 | disposition home or self-care (01) ==
LOC: HO.HGI 14:25
PROVIDERS: PCP Internal Medicine; Visit Provider Nurse Practitioner
DX: R74.01 Elevation of levels of liver transaminase levels (principal)
CPT/HCPCS: 99213

== ENCOUNTER → 2024-09-05 14:25 | Outpatient (BNVA) | payer OTHER, SELFPAY | PROVIDERS: PCP Internal Medicine; Visit Provider Nurse Practitioner | DX: Z71.2 Person consulting for explanation of examination or test findings (principal); R74.01 Elevation of levels of liver transaminase levels | CPT/HCPCS: 99212 ==

== ENCOUNTER 2024-09-18 13:38 | Outpatient (AMB) | payer OTHER, SELFPAY ==
--- NOTE | 2024-09-18 13:43 | A.OFFPC_ITS ---
Vital Signs 3 09/18/24 13:44 Height 5 ft 10 in Weight 165 lb 6 oz BMI 23.7 BP 120/62 Blood Pressure Location Lt brachial Position Sitting Pulse 117 H Pulse Source Pulse Oximeter Temp 97.3 F Temp Source Temporal Artery Scan Pulse Oximetry (%) 96 Oxygen Delivery Method Room Air Intake Visit Reasons: annual exam Intake Note: Patient is here today for a physical. Requesting suture removal at left eye Base Ply Hand Required: No Artificial Limb Maker: Present Accompanied by: staff Allergies Naldecon Senior EX Allergy (Unknown, Verified 09/18/24 13:44) Unknown pseudoephedrine (Sudafed) Allergy (Unknown, Verified 09/18/24 13:44) Unknown triprolidine (From Actifed) Allergy (Unknown, Verified 09/18/24 13:44) Unknown Medication List - Last Reconciled 09/18/24 by Luc Shelby MD acetaminophen 650 mg (2 x 325 mg) PO Q4H PRN cholecalciferol (vitamin D3) 25 mcg PO DAILY clonazepam (Klonopin) 0.5 mg PO BEDTIME dextromethorphan-guaifenesin 5-100 mg/5 mL (Child Robitussin Cough-Chest DM) 10 mL PO Q4-8H PRN divalproex 250 mg PO BID fluvoxamine 50 mg PO BID fluvoxamine 100 mg PO BID haloperidol 0.5 mg PO BID [HELMET As directed] ketoconazole 2% 1 appl topical BID [PROTECTIVE KNEE PADS As directed bilateral] quetiapine 200 mg PO TID Tobacco use date assessed: 09/18/24 Dental Screening Dental Screen Date: 02/23/24 [facility] Medical History (Updated 09/18/24 @ 14:02 by Luc Shelby MD) Annual physical exam Tachycardia COVID-19 virus infection Left knee pain LFT elevation Weight loss Abrasion head Hypernatremia Knee abrasion Vertigo of central origin Laceration of head Black eye of left side Lip laceration Bruise Tic disorder Hydrocephalus Urine incontinence Vitamin D deficiency Overweight (BMI 25.0-29.9) Seizure Obsessive compulsive disorder (or obsessive compulsive neurosis) Mental and behavioral problem Surgical History No pertinent past surgical history Social History Housing: Other Alcohol intake: never Patient Tobacco Use Status: Never used Tobacco e-Cigarette/Vaping Use: Never Used Second Hand Smoke Exposure: No service: No Current occupational status: disabled Cognitive needs: Yes (mental and behavioral problem) Hearing needs: No Vision needs: No Questionnaire PHQ-9 Over the last 2 weeks, how often have you been bothered by any of the following problems? 1. Little interest or pleasure in doing things: not at all 2. Feeling down, depressed, or hopeless: not at all 3. Trouble falling or staying asleep, or sleeping too much: not at all 4. Feeling tired or having little energy: not at all 5. Poor appetite or overeating: not at all 6. Feeling bad about yourself - or that you are a failure or have let yourself or your family down: not at all 7. Trouble concentrating on things, such as reading the newspaper or watching television: not at all 8. Moving or speaking so slowly that other people could have noticed. Or the opposite - being so fidgety or restless that you have been moving around a lot more than usual: not at all 9. Thoughts that you would be better off or of hurting yourself in some way: not at all Total score: 0 Depression Screening Interpretation: Negative Depression Screening Done: Yes Source: Developed by Drs. Brijesh Reyes, Ml Woodruff, Sampson Segal and colleagues, with an educational meri from [employer]. Thrive Questionnaire Date Thrive assessed: 09/18/24 I am a: Parent/Caregiver What is your living situation today?: I choose not to answer this question Within the past 12 months, did the food you bought not last and you didn't have the money to get more?: Never true Within the past 12 months, did you worry whether your food would run out before you got money to buy more?: Never true Do you have trouble paying for medicines?: No Do you have trouble getting transportation to medical appointments?: No Do you have trouble paying your heating and electricity bill?: No Do you have trouble taking care of your child, family member or friend?: No Do you have trouble with day-to-day activities such as bathing, preparing meals, shopping, managing finances, etc.?: No Are you currently unemployed and looking for a job?: I choose not to answer this question Are you interested in more education?: No Please select the resources that you would like help with: None Currently or been in a relationship where the following occur: I choose not to answer THRIVE Score: 0 AUDIT C Alcohol Use Questionnaire (AUDIT-C) 1. How often do you have a drink containing alcohol?: Never Total Score: 0 DAYANARA-7 AMB Questionnaire DAYANARA-7 Date DAYANARA - 7 assessed: 09/18/24 Feeling nervous, anxious, or on edge: 0 = Not at all Not being able to stop or control worryin = Not at all Worrying too much about different things: 0 = Not at all Trouble relaxin = Not at all Being so restless that it is hard to sit still: 0 = Not at all Becoming easily annoyed or irritable: 0 = Not at all Feeling afraid as if something awful might happen: 0 = Not at all Total DAYANARA-7 score (0-4 normal; 5-9 mild; 10-14 moderate; 15-21 severe): 0 Source: Developed by Drs. Brijesh Reyes, Ml Woodruff, Sampson Segal and colleagues, with an educational meri from [employer]. Fall Risk Assessment Fall Risk Assessment Fall risk assessment: 1 Fall in past year (09/09/24) Review of Systems Const Denies poor appetite and Denies weakness Eyes Denies no additional complaints ENT Reports Normal hearing present, Denies dizziness, Denies nasal congestion, Denies tinnitus and Denies sore throat Card Denies chest pain, Denies syncope, Denies rapid heart rate and Denies dyspnea Resp Denies cough and Denies dyspnea GI Denies change in stool character, Reports constipation, Denies diarrhea, Denies nausea and Denies vomiting Denies dysuria and Denies urinary frequency Neuro Reports Normal hearing present, Denies confusion, Denies dizziness, Denies syncope and Denies weakness Psych Denies confusion Physical exam (Primary Care) Vital Signs: Last Vital Signs Temp 97.3 F 09/18/24 13:44 Pulse 117 H 09/18/24 13:44 BP 120/62 09/18/24 13:44 Pulse Ox 96 09/18/24 13:44 Oxygen Delivery Method Room Air 08/12/25 13:44 BMI result Body Mass Index 23.7 Tobacco/Smoking Status: Tobacco use Status Tobacco use date assessed 09/18/24 09/18/24 13:52 Patient Tobacco Use Status Never used Tobacco 09/18/24 13:52 e-Cigarette/Vaping Use Never Used 09/18/24 13:52 PHQ-9: PHQ-9 Score PHQ-9: Total score 0 09/18/24 13:52 Depression Screening Interpretation: Negative Thrive Assessment: Date of Thrive Assessment Date Thrive assessed 09/18/24 09/18/24 13:52 Currently or been in a relationship where the following occur: I choose not to answer Const General: No confusion Orientation/consciousness: No confusion HENMT Head: Yes normocephalic Ears: external ears normal and TM's normal bilaterally Face and sinus: Yes normal facial exam Mouth: moist mucous membranes Throat: Yes tonsils normal Eyes Conjunctivae: conjunctivae normal Pupils: Equal, round and reactive pupils present and Pupil accommodation reflex normal Direct Ophthalmoscopy: normal light reflex Eyes/upper lids images: 2 1. laceration healing 5 sutures taken out Neck Neck: No lymphadenopathy Thyroid: Thyroid normal Chest Chest palpation & inspection: normal inspection of the chest Resp Effort & Inspection: normal respiratory effort and no audible wheezes Auscultation: clear to auscultation bilaterally, no crackles, no wheezes and lung sounds not diminished Cardio Rate: regular rate Rhythm: regular rhythm Peripheral pulses: radial pulses present and dorsalis pedis present GI Palpation (GI): no masses Auscultation: normal bowel sounds and normoactive bowel sounds Rectal Exam - Male: Yes deferred Skin General skin exam: no rashes or lesions noted Rashes: no rashes Neuro General: No confusion Cranial nerves: Yes Equal, round and reactive pupils present and Yes Normal hearing present Cognition (Neuro): normal cognition Gait exam (Neuro): Normal gait present Motor exam (neuro): 5/5 motor strength present throughout Deep tendon reflexes (DTR's): Right brachioradialis reflex intensity grade: 2+, Left brachioradialis reflex intensity grade: 2+, Right patellar reflex intensity grade: 2+ and Left patellar reflex intensity grade: 2+ Extrem General: No edema Coding Level of Care Code Est Pt Prev Care 18-39y(81827) Diagnoses Autism F84.0 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 Reactive lymphocytes (3) Transaminitis: Comment: BASELINE LABS 02/14/24 03/12/24 08:53 11:14 WBC 2.9 L RBC 4.59 L Hgb 13.2 L Hct 39.6 L MCV 86.3 MCH 28.8 Plt Count 169 125 L D Estimated GFR > 60 Total Bilirubin 0.3 AST 45 H ALT 55 H Alkaline Phosphatase 110 TSH 2.28 Free T4 0.92 03/29/23 15:19 Hep Bs Antigen Negative Hep Bs Antibody REACTIVE Hep B Core Total Ab Nonreactive Hepatitis C Ab (EIA) Nonreactive 03/12/2504/ 11:1416:3213:47 Plt Count 125 L D 186 D Ferritin 261 H Total Bilirubin 0.3 0.3 Direct Bilirubin 0.1 AST 33 27 ALT 66 H 51 H Alkaline Phosphatase 149 H 135 H Liver Fibrosis Stage F0 Ammonia 60 H Alpha Fetoprotein 2.3 SALMA Screen NEGATIVE Anti-Mitochondrial Ab NEGATIVE Anti-Smooth Muscle Ab <20 HIV 1&2 Ab/P24 Ag 4thGn Nonreactive CURRENT LABS ULTRASOUND OF THE ABDOMEN 04/15/2027 FINDINGS: PANCREAS: The pancreas is obscured by bowel gas. ABDOMINAL AORTA: The proximal and distal abdominal aorta are normal caliber. The mid abdominal aorta is obscured by bowel gas. INFERIOR VENA CAVA: Visualized portions are normal. LIVER: Normal. The liver is normal in size. The liver contour is normal. Parenchymal echogenicity is normal. No focal hepatic lesion. There is no intrahepatic biliary duct dilatation seen. GALLBLADDER: Normal. The gallbladder is physiologically distended without evidence of stones, sludge, polyps, wall thickening or pericholecystic fluid. COMMON BILE DUCT: The common bile duct is obscured by bowel gas. RIGHT KIDNEY: Normal. No hydronephrosis. No renal calculi or focal parenchymal lesions. The kidney measures 12.5 cm in maximum dimension. LEFT KIDNEY: Normal. No hydronephrosis. No renal calculi or focal parenchymal lesions. The kidney measures 13.8 cm in maximum dimension. SPLEEN: Normal. The spleen measures 8.8 cm in maximum dimension. FREE FLUID: None. US/US abdomen complete IMPRESSION: 1. No abnormality demonstrated. 2. The pancreas, common bile duct and mid abdominal aorta are obscured by bowel gas. Code(s): R74.01 - Elevation of levels of liver transaminase levels Category: Medical Plan: Patient follows up with Gastroenterology. (4) Tic disorder: Comment: poorly controlled Code(s): F95.9 - Tic disorder, unspecified Category: Medical Plan: Continue to follow-up with Neurology and Psychiatry. (5) Annual physical exam: Code(s): Z00.00 - Encounter for general adult medical examination without abnormal findings Category: Medical Plan: Patient is advised to eat healthy, keep well hydrated, keep active and have adequate sleep. Plan History of Present Illness The patient is a 39-year-old male presenting for a physical exam. The patient has a history of autism and seizure disorder. He typically wears a helmet during the day due to self-injurious behavior, specifically head banging, which has resulted in a left eyebrow laceration that required repair with five sutures on September 18. In September 2024, the patient was evaluated by hematology oncology for atypical lymphocytes, with differentials including reactive or lymphoproliferative disorder, but no evidence of lymphoproliferative disorder was found. The findings were most likely reactive, and the patient continues to be monitored. The patient has also been seen by gastroenterology for elevated liver function tests, which were attributed to fatty liver disease. There was no evidence of autoimmune or infectious processes contributing to the liver function abnormalities. The patient follows up with neurology and psychiatry for ongoing management of his conditions. Health Maintenance Social History Review of Systems Physical Exam General: Cooperative, healthy appearing, comfortable, no acute distress and well developed Orientation: Patient oriented x3 Limitations: No limitations Head: Laceration on left eyebrow, 5 sutures placed Ears: Hearing grossly normal bilaterally Nose: Normal external nose present Face and sinus: Normal facial exam Eyes: Appearance normal, both eyes and all related structures Neck: Normal visual inspection and Yes full ROM Respiratory: Normal respiratory effort and able to speak in complete sentences. Clear to auscultation bilaterally Cardiovascular: Regular rate and rhythm. Normal S1 and S2 GI: Normal to inspection. Soft to palpation and nontender Skin: No rashes or lesions noted Neuro: Patient oriented x3 Extremities: Normal to inspection Results - Labs: Normal blood count, normal electrolytes, renal function, and blood sugar; mildly elevated liver function tests - EEG: Within normal limits Plan The patient will continue to follow up with hematology oncology to monitor the reactive lymphocytes, ensuring no progression to a lymphoproliferative disorder. Gastroenterology will manage the elevated liver function tests attributed to fatty liver disease, with no current evidence of autoimmune or infectious processes. Neurology and psychiatry will continue to oversee the management of the patient's seizure disorder and autism, respectively. The patient's medication regimen includes Depakote 500 mg twice a day and a reduced dose of haloperidol to 0.5 mg three times a day for better control of tics. Patient was informed and verbally consented to the use of an ambient scribe for clinic note documentation during this visit. Discussion Notes Patient Instructions
[2024-09-18 13:44] VITALS: BP 120/62; PULSE 117; TEMP 36.3; O2SAT 96; BMI 23.7
--- OUTSIDE RECORDS SUMMARY | 2024-09-18 14:34 | XMS_ITS | Clinical Summary ---
Author Organization [facility] Address [address] [place] [id number] Phone Care Team Providers Care Registered Land Surveyor Name Role Phone uLc Shelby MD Primary Care Provider [phone] Allergies Active Allergy Reactions Criticality Noted Date [...] topic Medical Devices Not on file Insurance [facility] [place] [address] [place] [address] [employer] [place] [address] [place] [address] [place] [address] [place] [address] [place] [address] [address] [employer] [facility] Address: [address] [address] [place] [address] [facility] E[employer] Care Teams Registered Land Surveyor Relationship Specialty Start Date End Date Luc Shelby MD [address] [place] [address] [address] [place] [phone] PCP - General Internal Medicine 10/27/23 Additional Source Comments The information contained in this document represents components of the legal health record. It is not the complete legal health record.[facility]
== END 2024-09-18 14:28 | disposition home or self-care (01) ==
LOC: HO.HMCH 13:39
PROVIDERS: PCP Internal Medicine; Visit Provider Internal Medicine
DX: F84.0 Autistic disorder (principal); D72.89 Other specified disorders of white blood cells; R74.01 Elevation of levels of liver transaminase levels; F95.9 Tic disorder, unspecified; Z00.00 Encounter for general adult medical examination without abnormal findings

== ENCOUNTER → 2024-09-18 13:38 | Outpatient (BNVA) | payer OTHER, SELFPAY | PROVIDERS: PCP Internal Medicine; Visit Provider Internal Medicine | DX: Z00.00 Encounter for general adult medical examination without abnormal findings (principal); F84.0 Autistic disorder; D72.89 Other specified disorders of white blood cells; R74.01 Elevation of levels of liver transaminase levels; F95.9 Tic disorder, unspecified; S01.112D Laceration without foreign body of left eyelid and periocular area, subsequent encounter; X58.XXXD Exposure to other specified factors, subsequent encounter | CPT/HCPCS: 99395 ==

== ENCOUNTER 2024-10-22 09:00 | Outpatient (AMB) | payer OTHER, SELFPAY ==
--- NOTE | 2024-10-22 09:05 | A.OFFVIS_ITS ---
Vital Signs 10/22/24 09:07 Height 5 ft 10 in Weight 165 lb 8 oz BMI 23.7 BP 112/72 Blood Pressure Location Lt brachial Position Sitting Pulse 108 H Pulse Source Pulse Oximeter Pulse Oximetry (%) 97 Oxygen Delivery Method Room Air Intake Visit Reasons: 3m follow up Intake Note: Patient presents follow up Tic. About the same. Looking to maybe drop medication Accompanied by: Tariff Compiling Clerk Allergies Naldecon Senior EX Allergy (Unknown, Verified 10/22/24 09:10) Unknown pseudoephedrine (Sudafed) Allergy (Unknown, Verified 10/22/24 09:10) Unknown triprolidine (From Actifed) Allergy (Unknown, Verified 10/22/24 09:10) Unknown HPI Comments Details: 39 y/o male patient presents for follow up visit for recurrent falls, Tics, OCD and Autism. Pt is accompanied by Care Home Staff and Nurse. M-F 9-3 he attends a day program. Denies any seizure activity will continue on Depakote 250mg po BID Will continue to monitor LFTS. H/O developmental delay, TIC disorder, OCD and Autism. His falls have decreased since the last visit, now about 3x / day. He is non-verbal, staff reports no change in his behavioral TICS or falls, he flicks his finger and grinds teeth, makes oral movements and grunting noises. His falls started in Nov 2022 and are more like drop attacks, propioception seeking behavior, likes loud music and hard high fives , will watch movies and likes to swim. His falls vary according to staff, he likes to fall alot in the dining room. He will sit down if no one is there to catch him, will fall on the stairs going up, he seeks and likes motor/ sensory feedback. He likes a consistent routine, OCD behavior, he also tends to slump down in the same location when he goes on walks. OT comes from community service once a month and he no longer does PT. Pt had a CT of head in December 2023 and was c/w evidence of mild hydrocephalus. His diet is good, gets plenty of exercise with staff members, sleep is improved, needs help with getting dressed. Per Psychiatry, Dr. Amaya has decreased Haloperidol to 0.5mg PO BID. [facility] Medical History Annual physical exam Tachycardia COVID-19 virus infection Left knee pain LFT elevation Weight loss Abrasion head Hypernatremia Knee abrasion Vertigo of central origin Laceration of head Black eye of left side Lip laceration Bruise Tic disorder Hydrocephalus Urine incontinence Vitamin D deficiency Overweight (BMI 25.0-29.9) Seizure Obsessive compulsive disorder (or obsessive compulsive neurosis) Mental and behavioral problem Surgical History No pertinent past surgical history Social History Housing: Other Alcohol intake: never Patient Tobacco Use Status: Never used Tobacco e-Cigarette/Vaping Use: Never Used Second Hand Smoke Exposure: No service: No Current occupational status: disabled Cognitive needs: Yes (mental and behavioral problem) Hearing needs: No Vision needs: No Physical Exam Vital Signs: Last Vital Signs Pulse 108 H 10/22/24 09:07 BP 112/72 10/22/24 09:07 Pulse Ox 97 10/22/24 09:07 Oxygen Delivery Method Room Air 10/22/24 09:07 BMI result Body Mass Index 23.7 Const General: cooperative Nutritional Appearance: average body habitus HEENT Face and sinus: Yes face symmetric Neck Neck: Yes full ROM and Yes supple Neuro Other: Non verbal. Grunts loudly, makes noises. Vocal TICS- teeth grinding Motor TICS - multiple TICS , tapping his foot , no mikaela-oral movements. Cranial nerves: Yes Normal facial strength present and Yes Ability to bilaterally rotate head present Psych Appearance: grossly normal Assessment & Plan Assessment & Plan (1) Recurrent falls: Comment: behavioral, poorly controlled TICS, OCD Code(s): R29.6 - Repeated falls Category: Medical (2) Tic disorder: Comment: poorly controlled Code(s): F95.9 - Tic disorder, unspecified Category: Medical (3) Autism: Comment: Continue to follow-up with psychiatry Code(s): F84.0 - Autistic disorder Category: Medical (4) Obsessive compulsive disorder (or obsessive compulsive neurosis): Code(s): F42.9 - Obsessive-compulsive disorder, unspecified Category: Medical Qualifiers: Obsessive-compulsive disorder type: mixed obsessional thoughts and acts Qualified Code(s): F42.2 - Mixed obsessional thoughts and acts (5) LFT elevation: Code(s): R79.89 - Other specified abnormal findings of blood chemistry Category: Medical Plan Autism and OCD: Behavior management of TICS Decreased Haloperidol to 0.5mg tid for better control of TICS, per psychiatry to 0.5mg BID, Dr. Gonsalez Continue Depakote from 250mg PO BID, and monitor LFTs per pcp. Continue with socialization, puzzles, running/walking exercises as tolerated, non-verbal PT/OT services if available. Follow up in 6months, call or message us on the portal as needed. Patient Instructions: Becket evaluation to decrease Fluvoxamine 150mg po BID Depakote is now 250mg po BID Haldol 0.5mg po BID Quetiapine 200mg po BID - anxiety and mood Clonazepam 0.5mg po qpm [phone]- point of contact [facility] mgr. Coding Level of Care Code Est Pt Level 4 (51386) Diagnoses Recurrent falls R29.6 Tic disorder F95.9 Autism F84.0 Mixed obsessional thoughts and acts F42.2 Obsessive-compulsive disorder type: mixed obsessional thoughts and acts LFT elevation R79.89
[2024-10-22 09:07] VITALS: BP 112/72; PULSE 108; O2SAT 97; BMI 23.7
== END 2024-10-22 09:44 | disposition home or self-care (01) ==
LOC: HO.HSMS 09:01
PROVIDERS: PCP Internal Medicine; Visit Provider Physician Assistant Medical
DX: R29.6 Repeated falls (principal); F95.9 Tic disorder, unspecified; F84.0 Autistic disorder; F42.2 Mixed obsessional thoughts and acts; R79.89 Other specified abnormal findings of blood chemistry
CPT/HCPCS: 99214

== ENCOUNTER → 2024-10-22 09:00 | Outpatient (BNVA) | payer OTHER, SELFPAY | PROVIDERS: PCP Internal Medicine; Visit Provider Physician Assistant Medical | DX: F95.9 Tic disorder, unspecified (principal); F42.2 Mixed obsessional thoughts and acts; R79.89 Other specified abnormal findings of blood chemistry; R29.6 Repeated falls; F84.0 Autistic disorder | CPT/HCPCS: 99212 ==

== ENCOUNTER 2024-11-07 15:01 | Outpatient (AMB) | payer OTHER, SELFPAY ==
--- NOTE | 2024-11-07 15:15 | MHC.OFFWIV ---
Intake Vital Signs 11/07/24 15:16 Height 5 ft 10 in Weight 165 lb BMI 23.7 BP 132/80 Blood Pressure Location Lt brachial Position Sitting Pulse 65 Pulse Source Pulse Oximeter Temp 98.0 F Temp Source Oral Pulse Oximetry (%) 98 Oxygen Delivery Method Room Air Intake Visit Reasons: EP Fall, clearance from lip laceration Intake Note: pt presents with need for clearance for service net program from laceration sustained a couple weeks ago Patient Tobacco Use Status: Never used Tobacco Allergies Naldecon Senior EX Allergy (Unknown, Verified 11/07/24 15:22) Unknown pseudoephedrine (Sudafed) Allergy (Unknown, Verified 11/07/24 15:22) Unknown triprolidine (From Actifed) Allergy (Unknown, Verified 11/07/24:) Unknown Do you need a note to return to daycare/school/sports/work: No HPI HPI Comments History of Present Illness Details History of Present Illness - The patient is a 39-year-old male presenting with his CHD worker for a follow-up on a lower lip laceration. - The laceration was sutured at the emergency room a couple of weeks ago, and the sutures have since dissolved. - The patient's worker reports that the wound has healed well without any complications. - He needs it rechecked for the long-term. - He has had no issues that he knows of. Physical Exam General: Cooperative, healthy appearing Head: Normal to inspection Skin: No rashes or lesions noted. Well healed lower inner lip laceration. No discharge noted. Patient was informed and verbally consented to the use of an ambient scribe for clinic note documentation during this visit. [facility] Medical History Annual physical exam Tachycardia COVID-19 virus infection Left knee pain LFT elevation Weight loss Abrasion head Hypernatremia Knee abrasion Vertigo of central origin Laceration of head Black eye of left side Lip laceration Bruise Tic disorder Hydrocephalus Urine incontinence Vitamin D deficiency Overweight (BMI 25.0-29.9) Seizure Obsessive compulsive disorder (or obsessive compulsive neurosis) Mental and behavioral problem Surgical History No pertinent past surgical history Social History Housing: Other Alcohol intake: never Patient Tobacco Use Status: Never used Tobacco e-Cigarette/Vaping Use: Never Used Second Hand Smoke Exposure: No service: No Current occupational status: disabled Cognitive needs: Yes (mental and behavioral problem) Hearing needs: No Vision needs: No Review of Systems Const All systems reviewed & are unremarkable except as noted in HPI and below Physical Exam Vital Signs: Last Vital Signs Temp 98.0 F 11/07/24 15:16 Pulse 65 11/07/24 15:16 BP 132/80 11/07/24 15:16 Pulse Ox 98 11/07/24 15:16 Oxygen Delivery Method Room Air 11/07/24 15:16 BMI result Body Mass Index 23.7 Assessment & Plan Assessment & Plan (1) Lip laceration: Code(s): S01.511A - Laceration without foreign body of lip, initial encounter Qualifiers: Encounter type: initial encounter Qualified Code(s): S01.511A - Laceration without foreign body of lip, initial encounter Plan Most likely healing Lower Lip Laceration plan - paperwork completed in the office - The follow-up examination confirmed that the lower lip laceration has healed well with no signs of infection or complications. - The patient is advised to continue normal eating habits and monitor for any unusual symptoms. Coding Level of Care Code Est Pt Level 3 (64952) Diagnoses Lip laceration, initial encounter S01.511A Encounter type: initial encounter
[2024-11-07 15:16] VITALS: BP 132/80; PULSE 65; TEMP 36.7; O2SAT 98; BMI 23.7
--- OUTSIDE RECORDS SUMMARY | 2024-11-07 16:04 | XMS_ITS | Clinical Summary ---
Author Organization [facility] Address [address] [place] [address] Phone Care Team Providers Care Street Cleaner Name Role Phone Luc Shelby MD Primary Care Provider [phone] Allergies Active Allergy Reactions Criticality Noted Date [...] 2003 HIV ONE-TIME SCREENING (18-65 YEARS) 2003 INFLUENZA VACCINE (#1) 2024 , 11/25/2021, 12/10/2020, Additional history exists COVID-19 VACCINE (2024- season) 2024 12/28/2020, 03/24/2020, 03/03/2020 Adult Td,Tdap Booster 05/09/2033 [...] topic Medical Devices Not on file Insurance EPO [facility] [employer] [place] [address] [place] [address] [place] [address] [place] [address] [facility] EPO Care Teams Street Cleaner Relationship Specialty Start Date End Date Luc Shelby MD [address] [place] [address] [address] [place] [phone] PCP - General Internal Medicine 10/27/23 Additional Source Comments The information contained in this document represents components of the legal health record. It is not the complete legal health record.[facility]
== END 2024-11-07 16:21 | disposition home or self-care (01) ==
PROVIDERS: PCP Internal Medicine; Visit Provider Physician Assistant Medical
DX: S01.511A Laceration without foreign body of lip, initial encounter (principal)

== ENCOUNTER → 2024-11-07 15:01 | Outpatient (BNVA) | payer OTHER, SELFPAY | PROVIDERS: PCP Internal Medicine; Visit Provider Physician Assistant Medical | DX: S01.511D Laceration without foreign body of lip, subsequent encounter (principal); X58.XXXD Exposure to other specified factors, subsequent encounter | CPT/HCPCS: 99212 ==

== ENCOUNTER 2024-12-21 14:47 | Outpatient (AMB) | payer OTHER, SELFPAY ==
--- NOTE | 2024-12-21 14:53 | MHC.PC.OV ---
Vital Signs 12/21/24 14:54 Height 5 ft 10 in Weight 146 lb BMI 20.9 BP 126/70 Blood Pressure Location Lt brachial Position Sitting Pulse 80 Pulse Source Pulse Oximeter Temp 97.7 F Temp Source Temporal Artery Scan Pulse Oximetry (%) 97 Oxygen Delivery Method Room Air Intake Visit Reasons: [facility] 12/10 fall Intake Note: Patient is here for hospital discharge follow up. Patient was discharged from [facility] on 12/10/24. Scarf Gluer Required: No Spiritual Advisor: Present Accompanied by: Staff Allergies Naldecon Senior EX Allergy (Unknown, Verified 12/21/24 14:54) Unknown pseudoephedrine (Sudafed) Allergy (Unknown, Verified 12/21/24 14:54) Unknown triprolidine (From Actifed) Allergy (Unknown, Verified 12/21/24 14:54) Unknown Tobacco use date assessed: 12/21/24 Dental Screening Dental Screen Date: 02/23/24 HPI HPI Comments History of Present Illness Details 39-year-old male patient presents to clinic today for EDF visit. Past medical history significant for cognitive delay; patient is non-verbal and accompanied by his airline reservation agent, who provides the history. Patient was admitted at [facility] on 12/10 after sustaining a fall with head strike. He has frequent falls and typically wears a protective helmet. At the time of the fall, he was not wearing his helmet because it was early breastfeeding care specialist. Civil Engineering Drafter reports no loss of consciousness, no vomiting, and no changes in behavior or mental status since the fall. Civil Engineering Drafter states patient requires a new helmet due to significant cracking of his current one (front and back). [facility] Medical History Annual physical exam Tachycardia COVID-19 virus infection Left knee pain LFT elevation Weight loss Abrasion head Hypernatremia Knee abrasion Vertigo of central origin Laceration of head Black eye of left side Lip laceration Bruise Tic disorder Hydrocephalus Urine incontinence Vitamin D deficiency Overweight (BMI 25.0-29.9) Seizure Obsessive compulsive disorder (or obsessive compulsive neurosis) Mental and behavioral problem Surgical History No pertinent past surgical history Social History (Reviewed 12/21/24 @ 14:53 by CHRIS Weinstein Housing: Other Alcohol intake: never Patient Tobacco Use Status: Never used Tobacco e-Cigarette/Vaping Use: Never Used Second Hand Smoke Exposure: No service: No Current occupational status: disabled Cognitive needs: Yes (mental and behavioral problem) Hearing needs: No Vision needs: No Questionnaire Thrive Questionnaire Date Thrive assessed: 09/18/24 I am a: Parent/Caregiver What is your living situation today?: I choose not to answer this question Within the past 12 months, did the food you bought not last and you didn't have the money to get more?: Never true Within the past 12 months, did you worry whether your food would run out before you got money to buy more?: Never true Do you have trouble paying for medicines?: No Do you have trouble getting transportation to medical appointments?: No Do you have trouble paying your heating and electricity bill?: No Do you have trouble taking care of your child, family member or friend?: No Do you have trouble with day-to-day activities such as bathing, preparing meals, shopping, managing finances, etc.?: No Are you currently unemployed and looking for a job?: I choose not to answer this question Are you interested in more education?: No Please select the resources that you would like help with: None Currently or been in a relationship where the following occur: I choose not to answer THRIVE Score: 0 AUDIT C Alcohol Use Questionnaire (AUDIT-C) 2. How many drinks containing alcohol do you have on a typical day when you are drinking?: 1 or 2 Total Score: 0 DAYANARA-7 AMB Questionnaire DAYANARA-7 Date DAYANARA - 7 assessed: 09/18/24 Source: Developed by Drs. Brijesh Reyes, Ml Woodruff, Sampson Segal and colleagues, with an educational meri from [facility]. Review of Systems Const All systems reviewed & are unremarkable except as noted in HPI and below Physical exam (Primary Care) Vital Signs: Last Vital Signs Temp 97.7 F 12/21/24 14:54 Pulse 80 12/21/24 14:54 BP 126/70 12/21/24 14:54 Pulse Ox 97 12/21/24 14:54 Oxygen Delivery Method Room Air 12/21/24 14:54 BMI result Body Mass Index 20.9 Tobacco/Smoking Status: Tobacco use Status Tobacco use date assessed 12/21/24 12/21/24 14:59 Patient Tobacco Use Status Never used Tobacco 12/21/24 14:59 e-Cigarette/Vaping Use Never Used 12/21/24 14:59 Thrive Assessment: Date of Thrive Assessment Date Thrive assessed 09/18/24 12/21/24 14:59 Currently or been in a relationship where the following occur: I choose not to answer Const Other: Patient awake, alert, at neurological baseline. General: no acute distress Limitations: behavioral limitations Cardio Rate: regular rate Neuro Other: Gait unsteady but consistent with his baseline per airline reservation agent. Helmet on head with visible cracks along frontal and occipital portions. Coding Level of Care Code Est Pt Level 4 (97803) Diagnoses Fall W19.XXXA Time Spent (min) 20 Assessment & Plan Assessment & Plan (1) Fall: Code(s): W19.XXXA - Unspecified fall, initial encounter Category: Medical Plan: Frequent falls / high fall risk ? chronic issue requiring consistent protective equipment. Recent fall with head strike ? no current red flags; patient remains at neurological baseline. Helmet replacement order placed for new protective helmet appropriate for frequent-fall patients. Reinforced importance of consistent helmet use, especially during morning hours when falls often occur. Reviewed red flag symptoms with airline reservation agent: vomiting, lethargy, increased irritability, behavioral changes, imbalance worse than baseline, or any additional head trauma. Civil Engineering Drafter instructed to seek emergency care if any concerning symptoms develop. Follow-up as needed or sooner if concerns arise. 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
[2024-12-21 14:54] VITALS: BP 126/70; PULSE 80; TEMP 36.5; O2SAT 97; BMI 20.9
--- OUTSIDE RECORDS SUMMARY | 2024-12-21 22:12 | XMS_ITS | Clinical Summary ---
Author Organization [facility] Address [address] [place] [phone] Phone Care Team Providers Care Floor Care Specialist Name Role Phone Luc Shelby MD Primary Care Provider [phone] Allergies Active Allergy Reactions Criticality Noted Date [...] Additional history exists COVID-19 VACCINE ( season) 2024 12/28/2020, 03/24/2020, 03/03/2020 Adult Td,Tdap Booster 05/09/2033 05/10/2023 HEPATITIS A VACCINES Aged Out No long er eligible based on patient's age to complete this topic HIB VACCINES Aged Out No longer eligi ble based on patient's age to complete this topic IPV VACCINES Aged Out No longer eligi ble [...] topic Medical Devices Not on file Insurance [facility] [place] [address] [place] [address] [employer] EPO [facility] [employer] EPO [facility] EPO Care Teams Floor Care Specialist Relationship Specialty Start Date End Date Luc Shelby MD [address] [place] [phone] PCP - General Internal Medicine 10/27/23 Additional Source Comments The information contained in this document represents components of the legal health record. It is not the complete legal health record.[facility]
== END 2024-12-21 15:26 | disposition home or self-care (01) ==
LOC: HO.HMCH 14:47
PROVIDERS: PCP Internal Medicine; Visit Provider Nurse Practitioner Family
DX: R29.6 Repeated falls (principal)

== ENCOUNTER → 2024-12-21 14:47 | Outpatient (BNVA) | payer OTHER, SELFPAY | PROVIDERS: PCP Internal Medicine; Visit Provider Nurse Practitioner Family | DX: F84.0 Autistic disorder (principal); R26.9 Unspecified abnormalities of gait and mobility | CPT/HCPCS: 99212 ==